=== PATIENT | female | born 1960 | race Caucasian/White ===

== ENCOUNTER 2016-07-03 17:34 | Emergency (ER) | payer OTHER, MEDICARE ==
[~2016-07-03] VITALS: Ht 175.3 cm; Wt 81.6 kg
[~2016-07-03 17:34] MED LIST: AMOXICILLIN500 M1 PO; AUGMENTIN 875 M1 TAB PO; BACTRIM DS 8001 TAB PO; BENADRYL ALLERG25 M1 PO; BENADRYL ALLERG25 MG PO; CIPRO 500MG TA500 MG PO; CIPRO500 M1 PO; CIPROFLOXACIN250 M2 PO; CYANOCOBAL1000 MCG/1 IM; CYANOCOBAL1000 MCG/M SC; DILAUDID2 MG PO; DOCUSATE SODIU100 MG PO; ERGOCALCIFER50000 IU PO; FLAGYL500 MG PO; FLEXERIL10 MG PO; FLONASE120 SPRAY/ NASB; FLUOXETINE HYDR20 M1 PO; GABAPENTIN300 MG PO; HYDROXYZINE HCL10 MG PO; LEVETIRACETAM250 MG PO; LEVOCETIRIZINE D5 MG PO; LEVSIN/SL0.125 MG SL; LIDODERM 5% PAT1 PAT EXT; LIORESAL 10MG T10 MG PO; MACROBID100 MG PO; MEDROL DOSEPAK1 PAC PO; MEDROL4 M2 PO; MIRALAX17 GM PO; MOBIC15 M1 PO; MOBIC15 MG PO; MOTRIN 600 MG600 MG PO; MSIR PO; NAPROSYN 500 M500 MG PO; NASONEX0.05 MG/Ac NAS; NEURONTIN300 MG PO; OMEPRAZOLE40 MG PO; OXYCODONE5 M1 PO; OXYCODONE5 MG PO; PANTOPRAZOLE SO40 MG PO; PERCOCET 325 MG1 TA2 PO; PERCOCET 5-3251 EACH PO; PHENAZOPYRIDIN200 MG PO; PREDNISONE10 MG PO; PROTONIX 40MG T40 MG PO; PYRIDIUM100 MG PO; PYRIDIUM200 MG PO; RIBASPHERE RIB PO; SENOKOT S 50 MG1 TAB PO; SENOKOT8.6 MG PO; SKELAXIN800 M1 PO; Senokot S PO; TRAMADOL50 MG PO; ULTRAM(MONOGRAP50 MG PO; ULTRAM50 M1 PO; VICODIN 5-3001 EACH PO; VISTARIL25 MG PO; VITAMIN B121000 MCG PO; VITAMIN D50000 IU PO; ZOFRAN ODT4 M1 SL; ZOFRAN4 M1 PO; [UNRECOGNIZED DRUG - OTHER] PO; [UNRECOGNIZED DRUG - OTHER] PO
[2016-07-03 18:14] LABS: ABSOLUTE BASOPHIL COUNT 0 /CUMM (0.0-0.2); ABSOLUTE EOSINOPHIL COUNT 0.1 /CUMM (0.0-0.7); ABSOLUTE GRANULOCYTE CT 1.5 /CUMM (1.4-6.5); ABSOLUTE LYMPH COUNT 0.4 /CUMM (1.2-3.4); ABSOLUTE MONOCYTE COUNT 0.1 /CUMM (0.10-0.60); BASOPHIL % 0.6 % (0.0-2.0); EOSINOPHIL % 4.1 % (0-5); GRANULOCYTE % 69.1 % (42.2-75.2); HEMATOCRIT 31.1 % (37-47); MEAN CORPUSCULAR HGB 28.1 PG (27.0-31.0); MEAN CORPUSCULAR HGB CONC 33.3 G/DL (33.0-37.0); MEAN CORPUSCULAR VOLUME 84.5 FL (81.0-99.0); MEAN PLATELET VOLUME 8.4 FL (7.4-10.4); PLATELET COUNT 61 /CUMM (130-400); RBC DISTRIBUTION WIDTH 18.4 % (11.5-14.5); RED BLOOD CELL CT 3.68 /CUMM (4.20-5.40); WHITE BLOOD CELL COUNT 2.1 /CUMM (4.8-10.8)
[2016-07-03] MEDS ORDERED: HYDROXYZINE HCL10 M1 PO (19:34)
[2016-07-03] MEDS ORDERED: DEXILANT60 M1 PO (19:34)
--- NOTE | 2016-07-03 19:43 | ED GI/GU/ABDOMINAL COMPLAINT ---
See Addendum History of Present Illness General Chief Complaint: General Adult Stated Complaint: SIB DR LÓPEZ FOR URINALYSIS PER PT Source: patient Exam Limitations: no limitations Vital Signs & Intake/Output Vital Signs & Intake/Output Vital Signs Date Time Temp Pulse Resp B/P Pulse O2 O2 Flow FiO2 Ox Delivery Rate 07/03 2020 96.0 79 18 128/68 100 Room Air 07/03 1750 96.3 84 18 127/77 100 Room Air Allergies Coded Allergies: pollen extracts (Mild, STUFFY NOSE 12/19/15) NO KNOWN ALLERGIES (10/11/15) Reconcile Medications Dexlansoprazole (Dexilant) 60 MG LAQUITA.BP 1 CAP PO DAILY PRN GI (Reported) Hydroxyzine HCl 10 MG TABLET 1 TAB PO TID ITCHING (Reported) Triage Note: PT TO ED FOR R SIDED FLANK PAIN RADIATING TO RLQ OF ABD AND BILATERAL LEG SWELLING "FOR A FEW MONTHS". PT ALSO C/O INTERMITTENT SUBJECTIVE FEVER "FOR A FEW MONTHS". Triage Nurses Notes Reviewed? yes ? N Is pt currently ? No HPI: PT PRESENTS FOR EVAL OF BILATERAL FLANK. ONSET ONE WEEK AGO, GRADUAL ONSET. ALSO C/O HESITANCY, FREQUENCY AND DARK URINE. DENIES PAIN/DYSURIA. NO FEVER, CHILLS OR COLD SX. NO NAUSEA OR VOMITTING OR DIARRHEA. HX OF DISC DISEASE WITH SCIATICA. PAIN RADIATES TO BOTH THIGHS R>L. TRIED ADVIL WITHOUT RELIEF. WORSE WITH MOVEMENT AND PROLONGED SITTING. PT DENIES INCONTINENCE OR URINE RETENTION. Past History Travel History Traveled to [place] past 21 day No Medical History Any Pertinent Medical History? see below for history Neurological: NONE EENT: SINUS POLYPS Cardiovascular: NONE Respiratory: NONE Gastrointestinal: Crohn's disease, BOWEL OBSTRUCTION, GASTROPARESIS Hepatic: cirrhosis, hepatitis C (with positive cryoglobulins) Renal: TILTED KIDNEY, UTI Musculoskeletal: rheumatoid arthritis Psychiatric: anxiety, depression, PANIC ATTACKS Endocrine: NONE Blood Disorders: NONE Cancer(s): NONE HOSPITAL ACCOUNT LIAISON/Reproductive: NONE Other Medical Hx: Cryoglobulinemia History of MRSA: Yes History of VRE: No History of CDIFF: No Tetanus Vaccine: 02/03/15 Surgical History Surgical History: colon resection, tubal ligation, SINUS POLYPS CARPAL TUNNEL Psychosocial History Who do you live with Significant Other Services at Home None What is your primary language Jamaican Tobacco Use: Never used ETOH Use: denies use Illicit Drug Use: denies illicit drug use Family History Hx Contributory? No Review of Systems Review of Systems Constitutional: Reports: no symptoms. EENTM: Reports: no symptoms. Respiratory: Reports: no symptoms. Cardiovascular: Reports: no symptoms. GI: Reports: no symptoms. Genitourinary: Reports: see HPI. Musculoskeletal: Reports: see HPI. Skin: Reports: no symptoms. Neurological/Psychological: Reports: no symptoms. Hematologic/Endocrine: Reports: no symptoms. Immunologic/Allergic: Reports: no symptoms. All Other Systems: Reviewed and Negative Physical Exam Physical Exam Gastrointestinal: SEE BELOW Core Measures ACS in differential dx? No Severe Sepsis Present: No Septic Shock Present: No Progress Differential Diagnosis: CHRONIC BACK PAIN/SCIATICA/DISC DISEASE, UTI/PYELO Plan of Care: Orders Procedure Date/time Status CULTURE,URINE 07/03 1750 Active URINALYSIS 07/03 1750 Complete COMPREHENSIVE METABOLIC PANEL 07/03 1750 Complete CBC WITHOUT DIFFERENTIAL 07/03 1750 Complete Laboratory Tests 07/03/16 1804: Anion Gap 10, Estimated GFR > 60, BUN/Creatinine Ratio 18.6, Glucose 102 H, Calcium 8.8, Total Bilirubin 1.0, AST 25, ALT 33, Alkaline Phosphatase 78, Total Protein 7.3, Albumin 3.7, Globulin 3.6, Albumin/Globulin Ratio 1.0 L, CBC w Diff NO MAN DIFF REQ, RBC 3.68 L, MCV 84.5, MCH 28.1, RDW 18.4 H, MPV 8.4, Gran % 69.1, Lymphocytes % 21.0, Monocytes % 5.2, Eosinophils % 4.1, Basophils % 0.6, Absolute Granulocytes 1.5, Absolute Lymphocytes 0.4 L, Absolute Monocytes 0.1 L, Absolute Eosinophils 0.1, Absolute Basophils 0, PUBS MCHC 33.3 07/03/16 175: Urine Color YEL, Urine Clarity HAZY H, Urine pH 5.5, Ur Specific [place] >= 1.030, Urine Protein TRACE H, Urine Ketones NEG, Urine Nitrite NEG, Urine Bilirubin NEG, Urine Urobilinogen 1.0, Ur Leukocyte Esterase TRACE H, Ur Microscopic SEDIMENT EXAMINED, Urine RBC FEW H, Urine WBC 5-10 H, Ur Epithelial Cells MANY H, Hyaline Casts RARE H, Urine Mucus MOD H, Urine Hemoglobin NEG, Urine Glucose NEG Microbiology 07/03 1751 URINE ROUT: Urine Culture - RECD Diagnostic Imaging: Discussed w/RAD: Ultrasound. Radiology Impression: PATIENT: ESTELITA SOLORZANO PRESENT AGE: 56 PATIENT ACCOUNT NO: [id number] : 56 LOCATION: [facility] ORDERING PHYSICIAN: JOSE RAUL PIMENTEL MD SERVICE DATE: 07/03/16 EXAM TYPE: US - US-RENAL/KIDNEY EXAMINATION: US RETROPERITONEAL COMPLETE (RENAL) CLINICAL INFORMATION: Bilateral flank pain and dysuria. COMPARISON: CT of the abdomen and pelvis on 03/20/2016. TECHNIQUE: Real-time imaging of the kidneys and bladder. FINDINGS: RIGHT KIDNEY: 8.6 x 5.2 x 4.6 cm (SAG x AP x TRV). Renal volume 106 mL. The kidney is normal in size, contour, and echogenicity. Renal cortical thickness is normal. No calculi or focal parenchymal lesions. No hydronephrosis. LEFT KIDNEY: 9.9 x 3.9 x 5.2 cm (SAG x AP x TRV). Renal volume 107 mL. The kidney is normal in size, contour, and echogenicity. Renal cortical thickness is normal. No calculi or focal parenchymal lesions. No hydronephrosis. BLADDER: Partially distended. Unremarkable. Incidentally noted is splenomegaly. The spleen measures close to 20 cm in oblique diameter. IMPRESSION: No evidence of hydronephrosis or stone formation. Splenomegaly. DICTATED BY: GLENN DAWN MD DATE/TIME DICTATED:07/03/162107 GROUP SALES COORDINATOR:NATASHA DATE/ TIME TRANSCRIBED:07/03/162107 CONFIDENTIAL, DO NOT COPY WITHOUT APPROPRIATE AUTHORIZATION. <Electronically signed in Other Vendor System> SIGNED BY: GLENN DAWN MD 07/03/162115 Initial ED EKG: none Comments: 07/03/2016 9:46:44 PM I have updated Estelita on her test results. She appears quite comfortable. She has splenomegaly documented on prior CAT scans and her pancytopenia has been stable for years. 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 The spleen appears to be stable in size. Given lack of fever and significant neutropenia, I feel the patient is stable for outpatient management with PO antibiotics and follow-up within 48 hours. Departure Departure Disposition: HOME OR SELF CARE Condition: Stable Clinical Impression Primary Impression: UTI (urinary tract infection) Qualifiers: Urinary tract infection type: acute cystitis Hematuria presence: with hematuria Qualified Code: N30.01 - Acute cystitis with hematuria Secondary Impressions: Back pain Qualifiers: Back pain location: low back pain Chronicity: chronic Back pain laterality: bilateral Sciatica presence: unspecified whether sciatica present Qualified Codes: M54.5 - Low back pain; G89.29 - Other chronic pain Pancytopenia Splenomegaly Referrals: AUDREY LAWTON MD (PCP/Family) Additional Instructions: Ciprofloxacin as prescribed for a possible urinary tract infection. Pyridium as needed for bladder spasms, hesitancy or frequency. Follow-up with your primary care doctor in 48 hours for reevaluation. Follow-up with your financial assistance specialist if your back pain persists (I do not feel your back pain is related to the urinary tract signs and symptoms). Return immediately if you spike a fever or if there are any other concerns or worsening. Please note that there might be incidental findings in your evaluation that are unrelated to the current emergency department visit. Please notify your primary care doctor about this emergency department visit in order to obtain and review all of the testing performed so that these incidental findings can be monitored as needed. If you had an x-ray performed, please understand that some fractures may not be seen on the initial set of x-rays. If your symptoms persist you might need a repeat set of x-rays to check for such a fracture. If you had a laceration evaluated, please understand that foreign bodies such as glass or wood may not be visible to the naked eye or on plain x-rays. If the wound becomes red, swollen, increasingly more painful or if there is any drainage from the wound, please have it reevaluated by a physician for the possibility of a retained foreign body. Thank you for choosing the [facility] Emergency Department for your care. It was a pleasure to serve you today. Jose Raul Pimentel M.D. [facility] Departure Forms: Customer Survey General Discharge Information Prescriptions: Current Visit Scripts Ciprofloxacin HCl (Cipro) 1 TAB PO BID #14 TAB Phenazopyridine HCl (Pyridium) 1 TAB PO TID PRN BLADDER SPASMS #9 TAB
--- NOTE | 2016-07-03 21:16 | ULTRASOUND REPORT ---
EXAMINATION: US RETROPERITONEAL COMPLETE (RENAL) CLINICAL INFORMATION: Bilateral flank pain and dysuria. COMPARISON: CT of the abdomen and pelvis on 03/20/2016. TECHNIQUE: Real-time imaging of the kidneys and bladder. FINDINGS: RIGHT KIDNEY: 8.6 x 5.2 x 4.6 cm (SAG x AP x TRV). Renal volume 106 mL. The kidney is normal in size, contour, and echogenicity. Renal cortical thickness is normal. No calculi or focal parenchymal lesions. No hydronephrosis. LEFT KIDNEY: 9.9 x 3.9 x 5.2 cm (SAG x AP x TRV). Renal volume 107 mL. The kidney is normal in size, contour, and echogenicity. Renal cortical thickness is normal. No calculi or focal parenchymal lesions. No hydronephrosis. BLADDER: Partially distended. Unremarkable. Incidentally noted is splenomegaly. The spleen measures close to 20 cm in oblique diameter. IMPRESSION: No evidence of hydronephrosis or stone formation. Splenomegaly.
[2016-07-03] MEDS ORDERED: CIPRO500 M1 PO (21:48)
[2016-07-03] MEDS ORDERED: PYRIDIUM200 M1 PO (21:48)
[2016-07-03 22:09] VITALS: BP 113/60
[2016-07-03] MEDS ORDERED: DICLOFENAC SODI75 M2 PO (22:23)
== END 2016-07-03 22:25 ==
LOC: ERH 17:34
PROVIDERS: Emergency Medicine
DX: N39.0 Urinary tract infection, site not specified (principal); M54.5 Low back pain; D61.818 Other pancytopenia; R16.1 Splenomegaly, not elsewhere classified
CPT/HCPCS: 76775; 81001; 87086; 96372

== ENCOUNTER 2016-10-02 18:03 | Emergency (ER) | payer OTHER, MEDICARE ==
[~2016-10-02] VITALS: Ht 175.3 cm; Wt 83.5 kg
[~2016-10-02 18:03] MED LIST changes: +DEXILANT60 M1 PO; +DICLOFENAC SODI75 M2 PO; +HYDROXYZINE HCL10 M1 PO; +PYRIDIUM200 M1 PO
--- NOTE | 2016-10-02 18:53 | RADIOLOGY REPORT ---
EXAMINATION: XR RIBS, LEFT CLINICAL INFORMATION: Fall. Pain. COMPARISON: None TECHNIQUE: Single view chest. 3 oblique views of left ribs. FINDINGS: Lung volume low. There is no acute infiltrate. No consolidation, pneumothorax, or pleural effusion. The cardiomediastinal silhouette and pulmonary vasculature are normal. There is no displaced fracture. There is subtle contour deformity of the anterior left 10th rib concerning for nondisplaced fracture. There is also a subtle contour deformity of the anterior lateral left fifth rib concerning for nondisplaced fracture. IMPRESSION: 1. No acute change of chest. 2. Subtle contour deformity of the anterior left 10th rib and anterior fifth rib concerning for nondisplaced fracture. Clinically correlate.
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
[2016-10-02] MEDS ORDERED: PERCOCET 5-3251 EACH PO (19:42)
[2016-10-02] MEDS ORDERED: CORTIZONE-10 PL28 GM TOP (19:42)
[2016-10-02 20:00] VITALS: BP 130/78
== END 2016-10-02 20:05 ==
LOC: ERH 18:03
DX: S22.42XA Multiple fractures of ribs, left side, initial encounter for closed fracture (principal); L25.9 Unspecified contact dermatitis, unspecified cause; W19.XXXA Unspecified fall, initial encounter; Y93.9 Activity, unspecified; Y92.9 Unspecified place or not applicable
CPT/HCPCS: 71100-LT

== ENCOUNTER 2017-10-24 15:32 | Emergency (ER) | payer OTHER, MEDICARE ==
[~2017-10-24] VITALS: Ht 175.3 cm; Wt 81.6 kg
[~2017-10-24 15:32] MED LIST changes: +CORTIZONE-10 PL28 GM TOP; +FLUTICASONE PRO16 GM NASB; +PERCOCET 10-321 EACH PO; +PERCOCET 7.5-31 EACH PO; +RANITIDINE HCL300 M1 PO; +ZYRTEC10 M3 PO
--- NOTE | 2017-10-24 16:15 | ED UPPER/LOWER EXTREMITY COMPL ---
History of Present Illness General Chief Complaint: Shoulder Injury Stated Complaint: RIGHT SHOULDER PAIN Source: patient Exam Limitations: no limitations Vital Signs & Intake/Output Vital Signs & Intake/Output Vital Signs Date Time Temp Pulse Resp B/P B/P Pulse O2 O2 Flow FiO2 Mean Ox Delivery Rate 10/24 1627 99.9 98 17 138/71 98 Room Air 10/24 1626 Room Air 10/24 1537 99.8 96 18 134/69 97 Room Air Allergies Coded Allergies: pollen extracts (Mild, STUFFY NOSE 11/25/16) Reconcile Medications Cetirizine HCl (Zyrtec) 10 MG TABLET 1 TAB PO DAILY ALLERGIES (Reported) Dexlansoprazole (Dexilant) 60 MG CAP.DR.BP 1 CAP PO DAILY PRN GI (Reported) Fluticasone Propionate 50 MCG/ACTUATION SPRAY.SUSP 2 SPRAY NASB DAILY ALLERGIES (Reported) Hydroxyzine HCl 10 MG TABLET 1 TAB PO TID ITCHING (Reported) Oxycodone HCl/Acetaminophen (Percocet 7.5-325 MG Tablet) 7.5 MG-325 MG TABLET 1 TAB PO TID PRN PAIN Oxycodone HCl/Acetaminophen (Percocet 5-325 MG Tablet) 5 MG-325 MG TABLET 1 TAB PO 4 TIMES/DAY PRN PAIN Oxycodone HCl/Acetaminophen (Percocet 10-325 MG Tablet) 10 MG-325 MG TABLET 1 TAB PO 4 TIMES/DAY PRN PAIN Oxycodone HCl/Acetaminophen (Percocet 5-325 MG Tablet) 5 MG-325 MG TABLET 1-2 TAB PO BID pain Ranitidine HCl 300 MG TABLET 1 TAB PO BID GI (Reported) Triage Note: PT FROM HOME C/O RIGHT SHOULDER ROTATOR CUFF TEAR ABOUT 3 YEARS PRIOR, YESTERDAY PT WAS GARDENING AND BELIEVED SHE TORE IT EVEN MORE. PT STATES SINCE 0000 HAS HAD PAIN 10/10 IN RIGHT SHOULDER. PT DENIES SELF MEDICATING. PT DECLINES SLING IN TRIAGE, ACCEPTED ICE PACK. VSS. LOW GRADE TEMP 99.8 Triage Nurses Notes Reviewed? yes Onset: Abrupt Duration: day(s): (1), constant Timing: recent history Severity: moderate, severe Pain/Injury Location: Right: Shoulder. Method of Injury: unknown No Modifying Factors: none HPI: 57-year-old female comes into the emergency room with complaints of right shoulder pain. Symptoms been going on for the past day. She has a prior history of rotator cuff injury. She reports that she was doing some gardening yesterday when she felt pain in her shoulder. She has had pain since then and difficulty lifting her arm. She comes in for further evaluation. She denies any chest pain shortness of breath cough and nausea vomiting. Denies any other associated symptoms. (Nestor Pavon) Past History Travel History Traveled to [place] past 21 day No Medical History Any Pertinent Medical History? 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 No (Nestor Pavon) Review of Systems Review of Systems Constitutional: Reports: no symptoms. EENTM: Reports: no symptoms. Respiratory: Reports: no symptoms. Cardiovascular: Reports: no symptoms. Gastrointestinal/Abdominal: Reports: no symptoms. Genitourinary: Reports: no symptoms. Musculoskeletal: Reports: see HPI. Skin: Reports: no symptoms. Neurological/Psychological: Reports: no symptoms. Hematologic/Endocrine: Reports: no symptoms. Immunological: Reports: no symptoms. All Other Systems: Reviewed and Negative (Nestor Pavon) Physical Exam Physical Exam General Appearance: well developed/nourished, mild distress Head: atraumatic Eyes: Bilateral: normal appearance. Ears, Nose, Throat: normal ENT inspection, hearing grossly normal Neck: normal inspection Cardiovascular/Respiratory: no respiratory distress Back: normal inspection Shoulder Right: soft tissue tenderness, limited range of motion, Pain over right acromioclavicular joint, pain over right deltoid and trapezius muscle, pain with any type of abduction, Neurologic/Tendon: normal sensation, normal motor functions, normal tendon functions, responds to pain, no evidence tendon injury, no pulse deficit Skin: intact, normal color, warm/dry (Nestor Pavon) Progress Differential Diagnosis: contusion, dislocation, fracture, septic arthritis, sprain, tendon injury, rotator cuff tendinitis, and not as muscle strain, cervical radiculopathy, Plan of Care: 10/24/2017 7:00:22 PM Patient clinically looks well. Patient is in no apparent distress. Patient is nontoxic-appearing. No chest pain or shortness of breath. Pain is consistent with musculoskeletal pain. Reproducible. Worse with range of motion. (Nestor Pavon) Departure Departure Disposition: HOME OR SELF CARE Condition: Stable Clinical Impression Primary Impression: Right shoulder strain Referrals: Sobia Holguin APRN (PCP/Family) Additional Instructions: Take Percocet for pain. Follow-up with primary care doctor. Return if any other concerns worsening symptoms. Please go over all results of today's visit with your primary care doctor. Contact your primary care doctor to let them know you were here in the emergency room. There may be nonspecific findings which may not be related to your visit today here in the emergency room but may require further evaluation and chronic monitoring by your primary care doctor. If you had a laceration today the chance of foreign body always remains. You should follow-up with your primary care doctor for recheck in 3-5 days for a wound check. If you had an x-ray done there is a chance that a fracture could have been missed on initial read and you should follow-up with your primary care doctor for repeat x-rays if symptoms persist. If your blood pressure was elevated here in the emergency room please have rechecked by [facility] primary care doctor within the next 48. If you were prescribed a narcotic here in the emergency room or any type of controlled substances you're not allowed to drive while taking this medication or operate any type of heavy machinery. Narcotics can make you feel lightheaded dizziness nausea and can cause constipation. You may need to poultry picking machine tender a stool softener. Thank you for choosing [facility] emergency room. Please return to the emergency room immediately if you have any other concerns worsening of symptoms. Departure Forms: Customer Survey General Discharge Information Prescriptions: Current Visit Scripts Oxycodone HCl/Acetaminophen (Percocet 5-325 MG Tablet) 1-2 TAB PO BID #10 TAB (Nestor Pavon) PA/TOOL AND DIE ENGINEER Co-Sign Statement Statement: ED Attending supervision documentation- [] I saw and evaluated the patient. I have also reviewed all the pertinent lab results and diagnostic results. I agree with the findings and the plan of care as documented in the PA's/TOOL AND DIE ENGINEER's documentation. [X] I have reviewed the ED Record and agree with the PA's/TOOL AND DIE ENGINEER's documentation. [] Additions or exceptions (if any) to the PAs/TOOL AND DIE ENGINEER's note and plan are summarized below: [] (Zuly HERCULES,Sarkis Feliciano)
[2017-10-24] MEDS ORDERED: PERCOCET 5-3251 EACH PO (16:17)
[2017-10-24 16:27] VITALS: BP 138/71
== END 2017-10-24 16:29 ==
LOC: ERH 15:32
DX: S46.911A Strain of unspecified muscle, fascia and tendon at shoulder and upper arm level, right arm, initial encounter (principal); X50.9XXA Other and unspecified overexertion or strenuous movements or postures, initial encounter; Y93.H2 Activity, gardening and landscaping
CPT/HCPCS: 96372; J1885

== ENCOUNTER 2017-11-05 14:58 | Inpatient (IN) | payer OTHER, MEDICARE ==
[~2017-11-05] VITALS: Ht 175.3 cm; Wt 89.5 kg
[2017-11-05 15:56] LABS: ABSOLUTE BASOPHIL COUNT 0 /CUMM (0.0-0.2); ABSOLUTE EOSINOPHIL COUNT 0.1 /CUMM (0.0-0.7); ABSOLUTE GRANULOCYTE CT 2.4 /CUMM (1.4-6.5); ABSOLUTE LYMPH COUNT 0.4 /CUMM (1.2-3.4); ABSOLUTE MONOCYTE COUNT 0.2 /CUMM (0.10-0.60); BASOPHIL % 0.6 % (0.0-2.0); EOSINOPHIL % 2.1 % (0-5); GRANULOCYTE % 78.5 % (42.2-75.2); HEMATOCRIT 29.6 % (37-47); MEAN CORPUSCULAR HGB 27.4 PG (27.0-31.0); MEAN CORPUSCULAR HGB CONC 32.8 G/DL (33.0-37.0); MEAN CORPUSCULAR VOLUME 83.6 FL (81.0-99.0); MEAN PLATELET VOLUME 7.5 FL (7.4-10.4); RBC DISTRIBUTION WIDTH 17.1 % (11.5-14.5); RED BLOOD CELL CT 3.54 /CUMM (4.20-5.40); WHITE BLOOD CELL COUNT 3.1 /CUMM (4.8-10.8)
[2017-11-05 16:00] LABS: PLATELET COUNT 81 /CUMM (130-400)
--- NOTE | 2017-11-05 17:10 | CT SCAN REPORT ---
EXAMINATION: CT CHEST WITH CONTRAST CLINICAL INFORMATION: Palpable mass located at the right superior sternal border. COMPARISON: Chest CT from 10/11/2017. TECHNIQUE: Multidetector volumetric CT imaging of the chest was obtained after the administration of 95 mL of Optiray 320 intravenous contrast without immediate adverse reactions. Axial MIP volume rendering provided. Sagittal and coronal reformatted images were obtained. DLP: 256 mGy-cm FINDINGS: LUNGS: The central airways are patent. No dense consolidation. Unchanged appearance of the left lower lobe 0.4 cm nodule, series 3 image 32. No pneumothorax. MEDIASTINUM: The heart is normal in size. Coronary artery calcifications are present. No pericardial effusion. No mediastinal lymphadenopathy. PLEURA: There is no pleural effusion. No pleural mass or thickening. AXILLA/CHEST WALL: No lymphadenopathy. There is mild asymmetric prominence of the right pectoralis musculature/soft tissues along the anterior margin of the right sternoclavicular joint. This is a new finding when compared to the prior CT from 10/11/2017. There is no mass in the immediate subcutaneous tissues. UPPER ABDOMEN: Splenomegaly. OSSEOUS STRUCTURES: There is subtle irregularity of the medial head of the right clavicle as well as the manubrium in the region of the increased soft tissue density. This is a change from the prior study and suggestive of early erosion. IMPRESSION: There is a new finding of increased soft tissue density anterior to the right sternoclavicular joint with subtle erosive appearance of the head of the right clavicle as well as the adjacent manubrium. These findings raise concern for septic arthritis with osteomyelitis. Soft tissue density could represent an early inflammatory changes in this region. MRI may be useful to better evaluate.
--- NOTE | 2017-11-05 17:21 | ED CARDIAC/CP/PALPITATIONS ---
History of Present Illness General Chief Complaint: General Adult Stated Complaint: SIB PT FOR LUMP ON CHEST WITH PAIN TO R SHOULDER Source: patient Exam Limitations: no limitations Vital Signs & Intake/Output Vital Signs & Intake/Output Vital Signs Date Time Temp Pulse Resp B/P B/P Pulse O2 O2 Flow FiO2 Mean Ox Delivery Rate 11/05 1515 98.5 11/05 1514 90 18 129/80 98 Room Air Allergies Coded Allergies: pollen extracts (Mild, STUFFY NOSE 11/25/16) Reconcile Medications Cetirizine HCl (Zyrtec) 10 MG TABLET 1 TAB PO DAILY ALLERGIES (Reported) Dexlansoprazole (Dexilant) 60 MG CAP.DRQingBP 1 CAP PO DAILY PRN GI (Reported) Fluticasone Propionate 50 MCG/ACTUATION SPRAY.SUSP 2 SPRAY NASB DAILY ALLERGIES (Reported) Hydroxyzine HCl 10 MG TABLET 1 TAB PO TID ITCHING (Reported) Oxycodone HCl/Acetaminophen (Percocet 7.5-325 MG Tablet) 7.5 MG-325 MG TABLET 1 TAB PO TID PRN PAIN Oxycodone HCl/Acetaminophen (Percocet 5-325 MG Tablet) 5 MG-325 MG TABLET 1 TAB PO 4 TIMES/DAY PRN PAIN Oxycodone HCl/Acetaminophen (Percocet 10-325 MG Tablet) 10 MG-325 MG TABLET 1 TAB PO 4 TIMES/DAY PRN PAIN Oxycodone HCl/Acetaminophen (Percocet 5-325 MG Tablet) 5 MG-325 MG TABLET 1-2 TAB PO BID pain Ranitidine HCl 300 MG TABLET 1 TAB PO BID GI (Reported) Triage Note: 57 YO FEMALE TO TRIAGE FOR EVAL OF ?LUMP ON UPPER CHEST. STATES LUMP IS PAINFUL. STATES SHE HAS BEEN GOING TO PHYSICAL THERAPY TO STRENGTHEN HERSELF UP BEUCASE SHE FALLS ALOT. PT IN TRIAGE FOR EVAL. Triage Nurses Notes Reviewed? yes Onset: Gradual Duration: constant Timing: recent history Quality/Severity: severe, stabbing Radiation: no radiation HPI: Patient is a 57-year-old female with a past medical history hepatitis C, Crohn's disease with no current active medications, and GERD who presents emergency room with a three-day history of right-sided sternoclavicular swelling and point tenderness is noted through old records the patient approximately 2 weeks ago was seen at [place] emergency room for concerns of a fall where she obtained x- rays of the right shoulder with no concerns or fracture however followed up 1 week ago to evaluate orthopedics patient received an injection of corticosteroid to the right shoulder Patient denies any fever chills, nausea vomiting difficulty breathing difficulty swallowing or new trauma States that palpation and deep inhalation makes worse denies any IV drug use or alcohol use (Bro Castillo) Past History Travel History Traveled to [place] past 21 day No Medical History Any Pertinent Medical History? 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 No (Bro Castillo) Review of Systems Review of Systems Constitutional: Reports: no symptoms. EENTM: Reports: no symptoms. Respiratory: Reports: see HPI. Cardiovascular: Reports: see HPI. GI: Reports: no symptoms. Genitourinary: Reports: no symptoms. Musculoskeletal: Reports: no symptoms. Skin: Reports: no symptoms. Neurological/Psychological: Reports: no symptoms. Hematologic/Endocrine: Reports: no symptoms. Immunologic/Allergic: Reports: no symptoms. All Other Systems: Reviewed and Negative (Bro Castillo) Physical Exam Physical Exam General Appearance: no apparent distress, alert, comfortable Head: atraumatic Eyes: Bilateral: normal appearance. Ears, Nose, Throat: hearing grossly normal Neck: normal inspection Respiratory: normal breath sounds, chest non-tender Cardiovascular: regular rate/rhythm Gastrointestinal: normal bowel sounds, soft, non-tender Neurologic/Psych: no motor/sensory deficits, awake Skin: intact Lymphatic: no anterior cervical kareem Diagram Chest, Abdomen, Back: 1) Noted sternal clavicular swelling and point tenderness Core Measures ACS in differential dx? No CVA/TIA Diagnosis No Sepsis Present: No Sepsis Focused Exam Completed? No (Leandro FELICIANO,Bro) Progress Differential Diagnosis: AMI, costochondritis, pericarditis, pneumonia, pneumothorax, pulmonary embolism, rib fracture, sepsis, unstable angina Plan of Care: Orders Procedure Date/time Status Heart Healthy Diet 11/06 B Active Misc Message 11/05 1905 Active ED Holding Orders 11/05 1905 Active Admit to inpatient 11/05 1905 Active Vital Signs 11/05 1905 Active Code Status 11/05 190 Active EKG 11/05 1759 Active Add-on Test (ER Only) 11/05 1720 Active Add-on Test (ER Only) 11/05 171 Active BLOOD CULTURE 11/05 171 Active WESTERGREN SED RATE 11/05 1714 Complete LACTIC ACID 11/05 1545 Complete C-REACTIVE PROTEIN 11/05 1545 Complete COMPREHENSIVE METABOLIC PANEL 11/05 1518 Complete CBC WITHOUT DIFFERENTIAL 11/05 1518 Complete Laboratory Tests 11/05/17 1829: ESR Westergren 60 H 11/05/17 1545: Anion Gap 9, Estimated GFR > 60, BUN/Creatinine Ratio 21.7, Glucose 101 H, Lactic Acid 1.4, Calcium 8.8, Total Bilirubin 1.2, AST 23, ALT 23, Alkaline Phosphatase 76, C-Reactive Prot, Quant 2.0 H, Total Protein 7.4, Albumin 3.2 L , Globulin 4.2, Albumin/Globulin Ratio 0.8 L, CBC w Diff NO MAN DIFF REQ, RBC 3.54 L, MCV 83.6, MCH 27.4, MCHC 32.8 L, RDW 17.1 H, MPV 7.5, Gran % 78.5 H, Lymphocytes % 12.4 L, Monocytes % 6.4, Eosinophils % 2.1, Basophils % 0.6, Absolute Granulocytes 2.4, Absolute Lymphocytes 0.4 L, Absolute Monocytes 0.2, Absolute Eosinophils 0.1, Absolute Basophils 0 Microbiology 11/05 182 BLOOD: Blood Culture - RECD 11/05 1713 BLOOD: Blood Culture - ORD On initial examination patient has severe point tenderness and swelling to the right sternoclavicular joint and which CT scan does show concerns of septic arthritis versus osteomyelitis. Patient initially shows no concerns of sepsis or septic shock Discussed patient with ID who is aware of admission He agrees to withhold antibiotics at this time Patient will require interventional radiology culture to the SC joint and MRI discussed admission with patient who agrees Diagnostic Imaging: Viewed by Me: Radiology Read. Radiology Impression: acute abnormality Initial ED EKG: normal p-waves, normal QRS complex, 73 BPM,NSR Comments: PATIENT: JONA SOLORZANO PRESENT AGE: 57 PATIENT ACCOUNT NO: [id number] : 56 LOCATION: [facility] ORDERING PHYSICIAN: Jesse FELICIANO SERVICE DATE: 11/05/17 EXAM TYPE: CAT - CT CHEST W IV CONTRAST EXAMINATION: CT CHEST WITH CONTRAST CLINICAL INFORMATION: Palpable mass located at the right superior sternal border. COMPARISON: Chest CT from 10/11/2017. TECHNIQUE: Multidetector volumetric CT imaging of the chest was obtained after the administration of 95 mL of Optiray 320 intravenous contrast without immediate adverse reactions. Axial MIP volume rendering provided. Sagittal and coronal reformatted images were obtained. DLP: 256 mGy-cm FINDINGS: LUNGS: The central airways are patent. No dense consolidation. Unchanged appearance of the left lower lobe 0.4 cm nodule, series 3 image 32. No pneumothorax. MEDIASTINUM: The heart is normal in size. Coronary artery calcifications are present. No pericardial effusion. No mediastinal lymphadenopathy. PLEURA: There is no pleural effusion. No pleural mass or thickening. AXILLA/CHEST WALL: No lymphadenopathy. There is mild asymmetric prominence of the right pectoralis musculature/soft tissues along the anterior margin of the right sternoclavicular joint. This is a new finding when compared to the prior CT from 10/11/2017. There is no mass in the immediate subcutaneous tissues. UPPER ABDOMEN: Splenomegaly. OSSEOUS STRUCTURES: There is subtle irregularity of the medial head of the right clavicle as well as the manubrium in the region of the increased soft tissue density. This is a change from the prior study and suggestive of early erosion. IMPRESSION: There is a new finding of increased soft tissue density anterior to the right sternoclavicular joint with subtle erosive appearance of the head of the right clavicle as well as the adjacent manubrium. These findings raise concern for septic arthritis with osteomyelitis. Soft tissue density could represent an early inflammatory changes in this region. MRI may be useful to better evaluate. DICTATED BY: Lucila HERCULES,Nithin DATE/TIME DICTATED:11/05/171658 DISPATCHER ELECTRIC POWER:NATASHA DATE/TIME TRANSCRIBED:11/05/17 / 1658 CONFIDENTIAL, DO NOT COPY WITHOUT APPROPRIATE AUTHORIZATION. <Electronically signed in Other Vendor System> SIGNED BY: Nithin Gaytan MD 11/05 1710 (Bro Castillo) Departure Departure Disposition: STILL A PATIENT Condition: Stable Clinical Impression Primary Impression: Septic arthritis of sternoclavicular joint Secondary Impressions: Osteomyelitis Referrals: Sobia Holguin APRN (PCP/Family) Departure Forms: Customer Survey General Discharge Information Admission Note Spoke With: Timur Armstrong MD Documentation of Exam: Documentation of any treatments & extenuating circumstances including Concerns Regarding Discharge (functional status, medication knowledge or non-compliance, living conditions, etc.) that warrant an admission rather than observation: [ Patient requires IV antibiotics MRI interventional radiology blood cultures pending repeat labs pain management for concerns of osteomyelitis versus septic arthritis of the SC joint] (Bro Castillo) PA/RESIDENTIAL SUBCONTRACTOR Co-Sign Statement Statement: ED Attending supervision documentation- [X] I saw and evaluated the patient. I have also reviewed all the pertinent lab results and diagnostic results. I agree with the findings and the plan of care as documented in the PA's/RESIDENTIAL SUBCONTRACTOR's documentation. Patient presents for worsening pain and swelling over the right chest and clavicle. Physical examination reveals tenderness and soft tissue swelling in the same area. [] I have reviewed the ED Record and agree with the PA's/RESIDENTIAL SUBCONTRACTOR's documentation. [] Additions or exceptions (if any) to the PAs/RESIDENTIAL SUBCONTRACTOR's note and plan are summarized below: [] (Loren HERCULES,Jose Raul Davis) Critical Care Note Critical Care Note Critical Care Time: 30-74 min (Bro Castillo)
--- NOTE | 2017-11-05 20:41 | History & Physical ---
Emelina Land MD 11/05/172039: General Information and HPI MD Statement: I have seen and personally examined JONA SOLORZANO and documented this H&P. The patient is a 57 year old F who presented with a patient stated chief complaint of right chest swelling and pain Source of Information: patient, old records Exam Limitations: no limitations History of Present Illness: This is a 57-year-old female with a past medical history significant for hepatitis C treated with her bony, cirrhosis, Crohn's disease status post large and small bowel resections, GERD, rheumatoid arthritis, anxiety, depression, carpal tunnel syndrome status post bilateral surgery that comes to see us for 3 day history of right chest swelling and pain. The patient states that her problems started 2 weeks ago on 10/11 when she was seen at the [facility] emergency department after a fall in the shower. The patient states that she slipped in the shower, fell backwards and pulled her right shoulder. Subsequent x-ray showed no evidence of fracture but bone spurs and arthritis. The patient soon after followed up with an orthopedist who referred her to physical therapy and gave her one corticosteroid shot in the posterior shoulder. The patient states that she was also going to physical therapy as she has a history of recurrent falls. Today, she was supposed to start her physical therapy but when they saw the lump on her chest they sent her here for evaluation. The patient states that the swelling was smaller than a golf ball on her right chest above her breast. However, at the time of interview this swelling had decreased and instead a swelling was located near the collarbone. The patient states that her pain travels over her shoulder and is concentrated most in the collarbone but goes down her back to her rib cage. The patient also notes that she had been doing recent gardening and lifting heavy loads. She has pain in the area on palpation and with deep inspiration. She has pain on lifting arm and on turning her head, most notably towards the right hand side. The patient was last here in 2014 was found to have bursitis of her elbow, aspiration was done and did not show any evidence of MRSA. She has no history of joint infection. 3 days ago the patient showed the lump in her chest or her PCP, he apparently stated that she "most likely slept wrong" and gave her prescription for baclofen which she never filled. The patient has taken nothing for the pain. The patient denies fever, chills, left-sided chest pain, palpitations, dysphagia. She notes a certain degree of abdominal pain, nausea, vomiting that she attributes to her Crohn's and his chronic. She does state at this point her Crohn's is fairly well controlled. She denies any dysuria. The patient denies any travel. She last had a mammogram done 2 years ago, was negative. Also of note, the patient's friends have recently noted that her lips have become purple by the end of the day over the past few days. She denies any similar coloring of her fingers. Denies any edema, cough, shortness of breath on rest or exertion. He does have pain at in the right chest on inspiration. Of note patient had an echocardiogram done in 2014 which showed stage II diastolic dysfunction, no vegetations. She notes that she has a chronic history of falls. The patient states that she has episodes of dizziness randomly while walking that requires her to stop. She has not had any episodes of losing consciousness, mostly has had mechanical falls. The patient has a history of Crohn's disease and sees Justin Menezes MD. Apparently, he recently started her on Aldactone about a month ago for her cirrhosis. She notes that her Crohn's disease is well controlled. Patient is up-to-date on her colonoscopies. Allergies/Medications Allergies: Coded Allergies: pollen extracts (Mild, STUFFY NOSE 11/25/16) Home Med list Cetirizine HCl (Zyrtec) 10 MG TABLET 1 TAB PO DAILY ALLERGIES (Reported) Dexlansoprazole (Dexilant) 60 MG LAQUITA.BP 1 CAP PO DAILY PRN GI (Reported) Fluticasone Propionate 50 MCG/ACTUATION SPRAY.SUSP 2 SPRAY NASB DAILY ALLERGIES (Reported) Hydroxyzine HCl 10 MG TABLET 1 TAB PO TID ITCHING (Reported) Oxycodone HCl/Acetaminophen (Percocet 7.5-325 MG Tablet) 7.5 MG-325 MG TABLET 1 TAB PO TID PRN PAIN Oxycodone HCl/Acetaminophen (Percocet 5-325 MG Tablet) 5 MG-325 MG TABLET 1 TAB PO 4 TIMES/DAY PRN PAIN Oxycodone HCl/Acetaminophen (Percocet 10-325 MG Tablet) 10 MG-325 MG TABLET 1 TAB PO 4 TIMES/DAY PRN PAIN Oxycodone HCl/Acetaminophen (Percocet 5-325 MG Tablet) 5 MG-325 MG TABLET 1-2 TAB PO BID pain Ranitidine HCl 300 MG TABLET 1 TAB PO BID GI (Reported) Compliance With Home Meds: GOOD Past History Travel History Traveled to [place] past 21 day No Medical History Neurological: NONE EENT: SINUS POLYPS Cardiovascular: NONE Respiratory: NONE Gastrointestinal: Crohn's disease, BOWEL OBSTRUCTION GASTROPARESIS Hepatic: cirrhosis, HEPAC - CURED (with positive cryoglobulins) Renal: TILTED KIDNEY UTI Musculoskeletal: falls, rheumatoid arthritis, TORN R ROTATOR CUFF Psychiatric: anxiety, depression, PANIC ATTACKS Endocrine: NONE Blood Disorders: NONE Cancer(s): NONE 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 Psychosocial History Services at Home: None Smoking Status: Never Smoked ETOH Use: denies use Illicit Drug Use: denies illicit drug use Functional Ability ADLs Independent: dressing, eating, toileting, bathing. Ambulation: independent IADLs Independent: shopping, housework, finances, food prep, telephone, transportation , medication admin. Review of Systems Review of Systems Constitutional: Reports: no symptoms. EENTM: Reports: no symptoms. Cardiovascular: Reports: chest pain. Respiratory: Reports: no symptoms. GI: Reports: no symptoms. Genitourinary: Reports: no symptoms. Musculoskeletal: Reports: joint pain, muscle pain. Skin: Reports: no symptoms. Neurological/Psychological: Reports: no symptoms. Hematologic/Endocrine: Reports: no symptoms. Immunologic/Allergic: Reports: no symptoms. All Other Systems: Reviewed and Negative Exam & Diagnostic Data Last 24 Hrs of Vital Signs/I&O Vital Signs Date Time Temp Pulse Resp B/P B/P Pulse O2 O2 Flow FiO2 Mean Ox Delivery Rate 11/05 2258 98.2 84 18 120/80 93 Room Air 11/05 2203 98.8 82 18 135/64 97 Room Air Room Air 11/053 98.6 85 18 132/68 98 Room Air Room Air 11/05 1515 98.5 11/05 1514 90 18 129/80 98 Room Air Intake & Output 11/06 0800 11/06 0000 11/05 1600 Intake Total Output Total Balance Patient 193 lb 175 lb Weight Weight Reported by Patient Measurement Method Physical Exam General Appearance Alert, Oriented X3, Cooperative, No Acute Distress Skin No Rashes, No Breakdown, No Significant Lesion Skin Temp/Moisture Exam: Warm/Dry HEENT Atraumatic, PERRLA, EOMI, Mucous Membr. moist/pink Neck Supple, No JVD, PATIENT EXPERIENCES PAIN IN HER RIGHT CHEST AND NECK AND SHOULDER AND BACK WHEN SHE TURNED HER HEAD TO THE RIGHT SIDE OR TILTS HER NECK BACK Lymphatic NEGATIVE LYMPHADENOPATHY Cardiovascular Regular Rate, Normal S1, Normal S2, No Murmurs Lungs Clear to Auscultation, Normal Air Movement Abdomen Normal Bowel Sounds, Soft, No Tenderness, No Hepatospenomegaly, No Masses Neurological Normal Speech Extremities No Clubbing, No Cyanosis, No Edema, Normal Pulses, PATIENT HAS POSITIVE RADIAL PULSES, RETAINED SENSATION BUT PAIN ELICITED IN MOVEMENT ACTIVE AND PASSIVE OF THE RIGHT ARM AND SHOULDER. Vascular Normal Pulses, Pulses Symmetrical Sepsis Peripheral Pulse Location: Radial Sepsis Peripheral Pulse Exam: Normal Sepsis Cap Refill Exam: <2 Sec Last 24 Hrs of Labs/Kavin: Laboratory Tests 11/05/17 2340: PT 15.6 H, INR 1.43 H 11/05/17 1829: ESR Westergren 60 H 11/05/17 1545: Anion Gap 9, Estimated GFR > 60, BUN/Creatinine Ratio 21.7, Glucose 101 H, Lactic Acid 1.4, Calcium 8.8, Total Bilirubin 1.2, AST 23, ALT 23, Alkaline Phosphatase 76, C-Reactive Prot, Quant 2.0 H, Total Protein 7.4, Albumin 3.2 L , Globulin 4.2, Albumin/Globulin Ratio 0.8 L, CBC w Diff NO MAN DIFF REQ, RBC 3.54 L, MCV 83.6, MCH 27.4, MCHC 32.8 L, RDW 17.1 H, MPV 7.5, Gran % 78.5 H, Lymphocytes % 12.4 L, Monocytes % 6.4, Eosinophils % 2.1, Basophils % 0.6, Absolute Granulocytes 2.4, Absolute Lymphocytes 0.4 L, Absolute Monocytes 0.2, Absolute Eosinophils 0.1, Absolute Basophils 0 Microbiology 11/05 2129 BLOOD: Blood Culture - RECD 11/05 1829 BLOOD: Blood Culture - RECD Assessment/Plan Assessment: This is a 57-year-old female with a past medical history significant for hepatitis C treated with her bony, cirrhosis, Crohn's disease status post large and small bowel resections, GERD, rheumatoid arthritis, anxiety, depression, carpal tunnel syndrome status post bilateral surgery that comes to see us for 3 day history of right chest swelling and pain. The patient recently was seen at the [place] ER for a right shoulder injury, subsequently had a corticosteroid injection to the posterior shoulder. The patient has pain in the right chest over the shoulder and down to the back rib cage on movement and inspiration and as well as palpation of the area. The patient was seen previously in 2015 for elbow bursitis. She has no history of septic joint infections. The patient also has a recent history of reportedly blue/purple lips. All other systems negative. The patient last had an echocardiogram in 2014 which showed stage II diastolic dysfunction and no vegetations. In the ED, vitals temperature 98.5, heart rate 90, respiratory rate 18, blood pressure 129/80, 98% oxygen saturation on room air. Labs showed WBC count of 3.1 which is her baseline, hemoglobin of 9.7 down slightly from her baseline of hemoglobin 10-11, platelets 81 which is her baseline. ESR was found to be 60 and CRP elevated at 2.0. Liver function tests normal. Creatinine normal at 0.6. INR 1.43. CT of the chest showed new increased soft tissue density anterior to the right sternoclavicular joint with final erosive appearance of the head of the right clavicle and adjacent manubriumconcern for septic arthritis with osteomyelitis In the ED, the patient received morphine 4 mg 2 for pain Assessment -Right chest swelling and pain with evidence of septic arthritis/osteomyelitis on CT scan. If this is exactly case, question as to the point of infection i.e. contiguous versus vascularly. The patient does not have any evidence of skin break but did recently have a steroid injection in the posterior shoulder. -Low WBC count: She was found to have a low WBC count since 2014, lowest to 1.4 in September of this year. Apparently this was done as an outpatient. Please get records from PCP on evaluation of her hematologic deficiency. -History of Crohn's disease and cirrhosis recently placed on aldactone by Dr. Menezes contract associate manager Plan -Patient will need IR guided biopsy of lesion with culture and Gram stain, cell count. Consider MRI for further evaluation of potential osteomyelitis. Of note MRI is not available here on Sunday so we will go ahead with biopsy. -Hold antibiotics pending biopsy -Follow blood cultures 2 -Please place consult with infectious disease -Echocardiogram for question of vegetations if patient does in fact have hematologic spread -Patient will possibly need physical therapy down the line -Obtain records on WBC evaluation from PCP -Confirm dose of spironolactone the patient was recently started on by Dr. Menezes as it is not in reconcile meds -Pain pathway -Patient is on famotidine 40 twice a day by Dr. Justin Menezes, will continue. Regular diet DVT prophylaxis with Alps Patient is full code As Ranked By This Provider Problem List: 1. Osteomyelitis 2. Right shoulder strain 3. Septic arthritis of sternoclavicular joint Core Measures/Misc (01/28) Acute Coronary Syndrome ACS Diagnosis: No Congestive Heart Failure Congestive Heart Failure Diagnosis No Cerebrovascular Accident CVA/TIA Diagnosis: No VTE (View Protocol) VTE Risk Factors Age>40 No Mechanical VTE Prophylaxis d/t N/A MechProphylax Ordered No VTE Pharm Prophylaxis d/t NA PharmProphylax ordered Sepsis (View protocol) Sepsis Present: No If YES complete Sepsis Event Note If YES complete Sepsis Event Note Radha Domingo 11/06/17 0257: Core Measures/Misc (01/28) Sepsis (View protocol) If YES complete Sepsis Event Note If YES complete Sepsis Event Note Resident Review Statement Other Findings: Patient is a 57-year-old female with past medical history of Crohn's disease in remission, cirrhosis, history of bowel obstruction and gastroparesis, hep C treated, came in with a chief complaint of lump on her right upper chest. Patient states that she was feeling fine a week ago when she came to ER for pain in the right shoulder after she lifted up some weight and did some gardening work, given her history of rotator cuff tear she was advised to follow-up with an orthopedic as an outpatient, patient followed up the next day with an orthopedic which was on 10/30/2017, patient got a steroid shot on the posterior aspect of right shoulder in the office, and was sent home. Patient reported that a few days after that, she noticed lump in the anterior aspect of her right chest which was tender. Patient also noticed weakness in her right arm and was told by family and friends that her lips are turning blue at the end of the day. Patient however reports that she did not notice it herself. Labs and vitals as above CT chest with IV contrast There is a new finding of increased soft tissue density anterior to the right sternoclavicular joint with subtle erosive appearance of the head of the right clavicle as well as the adjacent manubrium. These findings raise concern for septic arthritis with osteomyelitis. Soft tissue density could represent an early inflammatory changes in this region. MRI may be useful to better evaluate. Assessment and plan We'll admit the patient on general medicine floor for closer monitoring Patient has been afebrile and no leukocytosis, however the CAT scan does show a questionable septic arthritis/osteomyelitis at in head of clavicle. Patient would probably need IR guided biopsy. Will keep off antibiotics until then, consider ID consult in a.m. Given the unknown source of septic arthritis of right sternoclavicular joint, will get echocardiogram to rule out for any infectious endocarditis. Of note patient had an echocardiogram done in 2014 which showed stage II diastolic dysfunction, no vegetations. Patient has elevated INR, she has a history of liver cirrhosis, will continue to monitor. Patient is on ranitidine 300 twice a day by Dr. Justin Menezes, will continue. Apparently patient is also on Spirinolactone, unkown dose, please confirm cmr in am. Pain management with Tylenol, Ibuprofen, morphine. DVT prophylaxis Alps. Patient is full code. Timur Armstrong 11/06/17 0510: Core Measures/Misc (01/28) Sepsis (View protocol) If YES complete Sepsis Event Note If YES complete Sepsis Event Note Attending MD Review Statement Attending Statement Attending MD Statement: examined this patient, discuss w/resident/PA/BRANCH MECHANIC, agreed w/resident/PA/BRANCH MECHANIC, reviewed EMR data (avail), reviewed images, amended to note Attending Assessment/Plan: CC: Lump on right side of the chest PMH: Hep C S/P treatment, resultant cirrhosis, Crohn's disease S/P surgery 20 inches of small bowel and 14 inches of large bowel removed, GERD, anxiety and depression 57-year-old female presented in ER for lump in right upper side of the chest near clavicle. Patient had a mechanical fall couple of weeks back, insured her chest and shoulder at that time and was seen in ER. She was suggested to follow- up with orthopedic at that time, where she received a right shoulder injection. Patient was following up with physical therapy for gait instability and recurrent falls where she informed about the lump on her chest and she was suggested to go to ER. She states that she noticed that swelling approximately 3 days back and has associated pain especially with arm movement and neck movement. She denies any fever, chills, night sweats, decreased appetite, chest pain, cough or palpitations otherwise complete ROS unremarkable. Patient states that she has rheumatoid arthritis but that is self diagnosed and patient does not appear to have rheumatoid arthritis. Patient is not on DMARD. She denies IV drug use Vitals: Temperature 98.5, pulse 90, RR 18, blood pressure 129/80, saturating 90% on room air. On exam: A O 3, cooperative, no acute distress, neck supple, JVD normal, no lymphadenopathy, mucosa moist, no focal neurological deficit, no dependent edema , small swelling and tenderness on right sternoclavicular joint, no fluctuation, or discharge. Right shoulder movements are painful CVS: S1-S2, RRR. RS: Clear to auscultate bilaterally. Abdomen: Soft, NT, ND, bowel sounds present. CT chest with IV contrast: There is a new finding of increased soft tissue density anterior to the right sternoclavicular joint with subtle erosive appearance of the head of the right clavicle as well as the adjacent manubrium. These findings raise concern for septic arthritis with osteomyelitis. Soft tissue density could represent an early inflammatory changes in this region. MRI may be useful to better evaluate. Assessment and plan 57-year-old female with above-mentioned past medical history presented in ER for 3 days history of swelling on her right upper side of her chest and associated pain. Patient does not have any significant leukocytosis or left shift and has chronic thrombocytopenia secondary to cirrhosis. On CT scan of her chest there is suspicion of septic arthritis and osteomyelitis of sternoclavicular joint. Patient will need IR guided biopsy. Will get infectious disease involved, hold off antibiotics. Unclear about source of this infection, patient may have had a bacteremia. Blood cultures and 2-D echocardiogram for any endocarditis + Suspected septic arthritis of sternoclavicular joint with associated osteomyelitis + History of Hep C S/P treatment, resultant cirrhosis, Crohn's disease S/P surgery 20 inches of small bowel and 14 inches of large bowel removed, GERD, anxiety and depression - Admit to general medicine - Blood cultures - ID consult - IR consult for biopsy - DVT prophylaxis with Alps only for now until the procedure - 2-D echocardiogram - No antibiotics at this point - Continue on her home medications
[2017-11-05 22:58] VITALS: BP 120/80
[2017-11-05 23:59] LABS: PT 15.6 SEC (9.4-12.5)
--- NOTE | 2017-11-06 05:11 | Admission Certification ---
Admission Certification Certification Statement - As attending physician, I certify that at the time of - admission, based on clinical presentation, severity of - symptoms, need for further diagnostic testing and - therapeutic interventions, and risk of adverse outcomes - without in-hospital treatment, in my clinical assessment, - this patient requires an acute hospital stay for a minimum - of two nights or longer. I have also considered psychsocial - factors such as support system, advanced age, financial - issues, cognitive issues, and failed out-patient treatments, - past re-admission history, safety of patient, and lack of - compliance as applicable. Specific rationale supporting this admission is: Suspected osteomyelitis of right sternoclavicular joint with septic arthritis
[2017-11-06 06:36] VITALS: BP 110/72
--- NOTE | 2017-11-06 07:15 | PN- Housestaff ---
Subjective Follow-up For: Osteomyelitis vs septic arthritis of right sternoclavicular joint Subjective: Patient seen and examined. States feeling sore but no pain. Has tenderness in her chest (external). Review of Systems Constitutional: Reports: no symptoms. Objective Last 24 Hrs of Vital Signs/I&O Vital Signs Date Time Temp Pulse Resp B/P B/P Pulse O2 O2 Flow FiO2 Mean Ox Delivery Rate 11/06 1416 98.5 79 18 116/66 95 Room Air 11/06 0636 98.0 74 18 110/72 95 Room Air 11/05 2258 98.2 84 18 120/80 93 Room Air 11/05 2203 98.8 82 18 135/64 97 Room Air Room Air 11/05 2053 98.6 85 18 132/68 98 Room Air Room Air Intake & Output 11/06 1600 11/06 0800 11/06 0000 Intake Total 290 Output Total 550 Balance -260 Intake, IV 50 Intake, Oral 240 Number 0 Bowel Movements Output, Urine 550 Patient 181 lb 193 lb Weight Physical Exam General Appearance: Alert, Oriented X3, Cooperative, Mild Distress Skin: No Rashes, No Breakdown Skin Temp/Moisture Exam: Warm/Dry Sepsis Skin Exam (color): Normal for Ethnicity HEENT: Atraumatic Cardiovascular: Normal S1, Normal S2, No Murmurs Lungs: Clear to Auscultation, Normal Air Movement Abdomen: Soft, No Tenderness Neurological: Normal Speech Extremities: No Edema Last 24 Hrs of Lab/Kavin Results Last 24 Hrs of Labs/Mics: Laboratory Tests 11/06/17 1050: Urine Opiates Screen 3545.00 H, Methadone Screen < 40, Barbiturate Screen < 60, Ur Phencyclidine Scrn < 6.00, Amphetamines Screen < 100, U Benzodiazepines Scrn < 85, Urine Cocaine Screen < 50, Urine Cannabis Screen < 5.00 11/06/17 1009: Fluid WBC Cancelled, Fld Total RBCs Counted Cancelled 11/06/17 1009: Fluid Glucose Cancelled, Fluid LDH Cancelled 11/06/17 0658: Anion Gap 6, Estimated GFR > 60, BUN/Creatinine Ratio 18.3, Uric Acid 5.0, CBC w Diff NO MAN DIFF REQ, RBC 2.97 L, MCV 83.7, MCH 27.5, MCHC 32.9 L, RDW 17.3 H , MPV 8.6, Gran % 73.3, Lymphocytes % 16.1 L, Monocytes % 7.0, Eosinophils % 3.1, Basophils % 0.5, Absolute Granulocytes 1.3 L, Absolute Lymphocytes 0.3 L, Absolute Monocytes 0.1, Absolute Eosinophils 0.1, Absolute Basophils 0 11/05/17 2340: PT 15.6 H, INR 1.43 H 11/05/17 1829: ESR Westergren 60 H Microbiology 11/06 164 BODY FLUID: AFB Culture with PCR Identification - RECD 11/06 1641 BODY FLUID: AFB Smear Concentration - RECD 11/06 1641 BODY FLUID: Fungal Culture - RECD 11/05 213 BLOOD: Blood Culture - RES 11/05 1828 BLOOD: Blood Culture - RES Assessment/Plan Assessment: 57-year-old woman with a history of Crohn's disease, in remission, hepatitis C with cirrhosis and pancytopenia, treated in the past with antiviral therapy, rheumatoid arthritis, with a history of a right rotator cuff tear 3 years prior to admission presented to the ED with a several day history of swelling and discomfort over the right sternoclavicular joint and continued pain in her right shoulder, with no associated fevers or chills. Assessment: 1. Osteomyelitis vs Septic Arthritis of Right Shoulder 2. Pancytopenia Plan: * CT guided aspiration of cyst today. * Will keep patient off antibiotics in case her fluid is insufficient for culture and IR needs a repeat sample. * Further evaluation with MRI tomorrow. * Orthopedic and CT surgery consult regarding her right shoulder. * Follow up blood cultures * Follow up fluid cultures. * Echocardiogram to evaluate for possible endocarditis. * Diet: Regular * DVT Prophylaxis: ALPS only. Patient has low platelets. * Code: Full Code Problem List: 1. Right shoulder strain Pain Ratin Pain Location: none Pain Goal: Remain pain free Pain Plan: none Tomorrow's Labs & Rationales: CBC, BEP
[2017-11-06 08:21] LABS: ABSOLUTE BASOPHIL COUNT 0 /CUMM (0.0-0.2); ABSOLUTE EOSINOPHIL COUNT 0.1 /CUMM (0.0-0.7); ABSOLUTE GRANULOCYTE CT 1.3 /CUMM (1.4-6.5); ABSOLUTE LYMPH COUNT 0.3 /CUMM (1.2-3.4); ABSOLUTE MONOCYTE COUNT 0.1 /CUMM (0.10-0.60); BASOPHIL % 0.5 % (0.0-2.0); EOSINOPHIL % 3.1 % (0-5); GRANULOCYTE % 73.3 % (42.2-75.2); HEMATOCRIT 24.8 % (37-47); MEAN CORPUSCULAR HGB 27.5 PG (27.0-31.0); MEAN CORPUSCULAR HGB CONC 32.9 G/DL (33.0-37.0); MEAN CORPUSCULAR VOLUME 83.7 FL (81.0-99.0); MEAN PLATELET VOLUME 8.6 FL (7.4-10.4); PLATELET COUNT 71 /CUMM (130-400); RBC DISTRIBUTION WIDTH 17.3 % (11.5-14.5); RED BLOOD CELL CT 2.97 /CUMM (4.20-5.40); WHITE BLOOD CELL COUNT 1.8 /CUMM (4.8-10.8)
--- NOTE | 2017-11-06 11:42 | Cons- Infect Disease ---
General Information and HPI Consulting Request Date of Consult: 11/06/17 Requested By: Francisca Fajardo MD Reason for Consult: Osteomyelitis/septic arthritis of the right sternoclavicular joint Source of Information: patient, old records History of Present Illness: This is a 57-year-old woman with a history of Crohn's disease, in remission, hepatitis C with cirrhosis and pancytopenia, treated in the past with antiviral therapy, questionable rheumatoid arthritis, with a history of a right rotator cuff tear 3 years prior to admission, and with frequent, unexplained falls, seen in the emergency room nearly 4 weeks prior to admission after falling on her upper back in the bathtub with the complaint of severe pain across her upper chest, with a CT of the head, cervical spine, chest, abdomen and pelvis negative for any acute process, discharged on Oxycodone, seen again in the emergency room nearly 2 weeks prior to admission with right shoulder pain and again discharged on Oxycodone, status post a steroid injection in her right shoulder 4 days prior to admission by Orthopedics, admitted on November 05 after presenting to the emergency room with a several day history of swelling and discomfort over the right sternoclavicular joint and continued pain in her right shoulder, with no associated fevers or chills. On admission she was afebrile. Laboratory data revealed a white blood cell count of 3000, H&H 10 and 30, platelets 81,000, BUN/ creatinine 13 and 0.6, with normal liver enzymes, INR 1.43. CT of the chest revealed increased soft tissue density anterior to the right sternoclavicular joint with a subtle erosive appearance of the head of the right clavicle and the adjacent manubrium. She was followed off antibiotics and has remained afebrile. At present she complains of pain and decreased range of motion of the right shoulder. Allergies/Medications Allergies: Coded Allergies: pollen extracts (Mild, STUFFY NOSE 11/25/16) Home Med List: Cetirizine HCl (Zyrtec) 10 MG TABLET 1 TAB PO DAILY ALLERGIES (Reported) Dexlansoprazole (Dexilant) 60 MG CAP.DR.BP 1 CAP PO DAILY PRN GI (Reported) Fluticasone Propionate 50 MCG/ACTUATION SPRAY.SUSP 2 SPRAY NASB DAILY ALLERGIES (Reported) Hydroxyzine HCl 10 MG TABLET 1 TAB PO TID ITCHING (Reported) Oxycodone HCl/Acetaminophen (Percocet 7.5-325 MG Tablet) 7.5 MG-325 MG TABLET 1 TAB PO TID PRN PAIN Oxycodone HCl/Acetaminophen (Percocet 5-325 MG Tablet) 5 MG-325 MG TABLET 1 TAB PO 4 TIMES/DAY PRN PAIN Oxycodone HCl/Acetaminophen (Percocet 10-325 MG Tablet) 10 MG-325 MG TABLET 1 TAB PO 4 TIMES/DAY PRN PAIN Oxycodone HCl/Acetaminophen (Percocet 5-325 MG Tablet) 5 MG-325 MG TABLET 1-2 TAB PO BID pain Ranitidine HCl 300 MG TABLET 1 TAB PO BID GI (Reported) Past History Travel History Traveled to [place] past 21 day No Medical History Blood Transfusion Hx: No Neurological: NONE EENT: SINUS POLYPS Cardiovascular: NONE Respiratory: NONE Gastrointestinal: Crohn's disease, BOWEL OBSTRUCTION GASTROPARESIS Hepatic: cirrhosis, hepatitis C Renal: UTI Musculoskeletal: falls, rheumatoid arthritis, TORN R ROTATOR CUFF Psychiatric: anxiety, depression, PANIC ATTACKS Endocrine: NONE Blood Disorders: NONE Cancer(s): NONE SERVICE SUPPORT REPRESENTATIVE/Reproductive: NONE Other Medical Hx: Cryoglobulinemia History of MRSA: Yes History of VRE: No History of CDIFF: No Isolation History: Standard Tetanus Vaccine: 02/03/15 Surgical History Surgical History: colon resection, tubal ligation, SINUS POLYPS CARPAL TUNNEL Psychosocial History Where Do You Live? Home Services at Home: None Smoking Status: Never Smoked ETOH Use: denies use Illicit Drug Use: denies illicit drug use Functional Ability ADLs Independent: dressing, eating, toileting, bathing. Ambulation: independent IADLs Independent: shopping, housework, finances, food prep, telephone, transportation , medication admin. Review of Systems Review of Systems All Other Systems: Reviewed and Negative Exam & Diagnostic Data Last 24 Hrs of Vital Signs/I&O Vital Signs Date Time Temp Pulse Resp B/P B/P Pulse O2 O2 Flow FiO2 Mean Ox Delivery Rate 11/06 0636 98.0 74 18 110/72 95 Room Air 11/05 2258 98.2 84 18 120/80 93 Room Air 11/05 2203 98.8 82 18 135/64 97 Room Air Room Air 11/05 2053 98.6 85 18 132/68 98 Room Air Room Air 11/05 1515 98.5 11/05 1514 90 18 129/80 98 Room Air Intake & Output 11/06 1600 11/06 0800 11/06 0000 Intake Total Output Total Balance Patient 181 lb 193 lb Weight Physical Exam Other Physical Findings: She is awake and alert in no acute distress. She is afebrile. Skin reveals no rash. HEENT exam is negative. Neck is supple with no adenopathy. Lungs are clear. Chest swelling over the right sternoclavicular joint, with no overlying erythema or tenderness. Heart regular rhythm with no murmur. Abdomen is soft, nontender with positive bowel sounds. Back no CVA tenderness. Extremities decreased range of motion of the right shoulder, with no overlying erythema or swelling; no cyanosis, clubbing or edema of the lower extremities. Neuro is without focality. Last 24 Hours of Lab Results: Laboratory Tests 11/06 11/06 11/05 1050 0658 2340 Chemistry Sodium (137 - 145 mmol/L) 141 Potassium (3.5 - 5.1 mmol/L) 4.0 Chloride (98 - 107 mmol/L) 106 Carbon Dioxide (22 - 30 mmol/L) 29 Anion Gap (5 - 16) 6 BUN (7 - 17 mg/dL) 11 Creatinine (0.5 - 1.0 mg/dL) 0.6 Estimated GFR (>60 ml/min) > 60 BUN/Creatinine Ratio (7 - 25 %) 18.3 Uric Acid (2.5 - 6.2 mg/dL) 5.0 Coagulation PT (9.4 - 12.5 SEC) 15.6 H INR (0.90 - 1.19) 1.43 H Hematology CBC w Diff NO MAN DIFF REQ WBC (4.8 - 10.8 /CUMM) 1.8 L RBC (4.20 - 5.40 /CUMM) 2.97 L Hgb (12.0 - 16.0 G/DL) 8.2 L Hct (37 - 47 %) 24.8 L MCV (81.0 - 99.0 FL) 83.7 MCH (27.0 - 31.0 PG) 27.5 MCHC (33.0 - 37.0 G/DL) 32.9 L RDW (11.5 - 14.5 %) 17.3 H Plt Count (130 - 400 /CUMM) 71 L MPV (7.4 - 10.4 FL) 8.6 Gran % (42.2 - 75.2 %) 73.3 Lymphocytes % (20.5 - 51.1 %) 16.1 L Monocytes % (1.7 - 9.3 %) 7.0 Eosinophils % (0 - 5 %) 3.1 Basophils % (0.0 - 2.0 %) 0.5 Absolute Granulocytes (1.4 - 6.5 /CUMM) 1.3 L Absolute Lymphocytes (1.2 - 3.4 /CUMM) 0.3 L Absolute Monocytes (0.10 - 0.60 /CUMM) 0.1 Absolute Eosinophils (0.0 - 0.7 /CUMM) 0.1 Absolute Basophils (0.0 - 0.2 /CUMM) 0 Toxicology Methadone Screen (>300 NG/ML) Pending Barbiturate Screen (>200 NG/ML) Pending Ur Phencyclidine Scrn (>25 NG/ML) Pending Amphetamines Screen (>1000 NG/ML) Pending U Benzodiazepines Scrn (>200 NG/ML) Pending Urine Cocaine Screen (>300 NG/ML) Pending Urine Cannabis Screen (>50 NG/ML) Pending 11/05 11/05 1829 1545 Chemistry Sodium (137 - 145 mmol/L) 141 Potassium (3.5 - 5.1 mmol/L) 3.9 Chloride (98 - 107 mmol/L) 104 Carbon Dioxide (22 - 30 mmol/L) 29 Anion Gap (5 - 16) 9 BUN (7 - 17 mg/dL) 13 Creatinine (0.5 - 1.0 mg/dL) 0.6 Estimated GFR (>60 ml/min) > 60 BUN/Creatinine Ratio (7 - 25 %) 21.7 Glucose (65 - 99 mg/dL) 101 H Lactic Acid (0.7 - 2.1 mmol/L) 1.4 Calcium (8.4 - 10.2 mg/dL) 8.8 Total Bilirubin (0.2 - 1.3 mg/dL) 1.2 AST (14 - 36 U/L) 23 ALT (9 - 52 U/L) 23 Alkaline Phosphatase (<127 U/L) 76 C-Reactive Prot, Quant (<1.0 mg/dL) 2.0 H Total Protein (6.3 - 8.2 g/dL) 7.4 Albumin (3.5 - 5.0 g/dL) 3.2 L Globulin (1.9 - 4.2 gm/dL) 4.2 Albumin/Globulin Ratio (1.1 - 2.2 %) 0.8 L Hematology CBC w Diff NO MAN DIFF REQ WBC (4.8 - 10.8 /CUMM) 3.1 L RBC (4.20 - 5.40 /CUMM) 3.54 L Hgb (12.0 - 16.0 G/DL) 9.7 L Hct (37 - 47 %) 29.6 L MCV (81.0 - 99.0 FL) 83.6 MCH (27.0 - 31.0 PG) 27.4 MCHC (33.0 - 37.0 G/DL) 32.8 L RDW (11.5 - 14.5 %) 17.1 H Plt Count (130 - 400 /CUMM) 81 L MPV (7.4 - 10.4 FL) 7.5 Gran % (42.2 - 75.2 %) 78.5 H Lymphocytes % (20.5 - 51.1 %) 12.4 L Monocytes % (1.7 - 9.3 %) 6.4 Eosinophils % (0 - 5 %) 2.1 Basophils % (0.0 - 2.0 %) 0.6 Absolute Granulocytes (1.4 - 6.5 /CUMM) 2.4 Absolute Lymphocytes (1.2 - 3.4 /CUMM) 0.4 L Absolute Monocytes (0.10 - 0.60 /CUMM) 0.2 Absolute Eosinophils (0.0 - 0.7 /CUMM) 0.1 Absolute Basophils (0.0 - 0.2 /CUMM) 0 ESR Westergren (0 - 20 MM) 60 H Last 24 Hours of Kavin Results: Blood cultures November 05 negative Diagnostic Data Recent Imaging Findings: CT of the chest revealed increased soft tissue density anterior to the right sternoclavicular joint with a subtle erosive appearance of the head of the right clavicle and the adjacent manubrium. Assessment/Plan Assessment/Plan Impression: This is a 57-year-old woman with a history of hepatitis C, with cirrhosis and pancytopenia, right rotator cuff tear 3 years prior to admission, with frequent, unexplained falls, most recently 4 weeks prior to admission on her upper back in the bathtub, evaluated in the ER for severe pain across her upper chest, with a CT of the head, cervical spine, chest, abdomen and pelvis negative for any acute process, seen again in the emergency room 2 weeks prior to admission with right shoulder pain, status post a steroid injection in her right shoulder 4 days prior to admission by Orthopedics, admitted on November 05 with a several day history of swelling and discomfort over the right sternoclavicular joint and continued pain in her right shoulder, found to be afebrile with pancytopenia and with a CT of the chest revealing findings suggestive of septic arthritis and osteomyelitis of the right sternoclavicular joint and clavicle. Her imaging is suggestive of infection involving the right sternoclavicular joint and head of the clavicle and adjacent manubrium. The most likely source would be her recent trauma, with a break in the skin resulting in a bacteremia with subsequent seeding of this area. She did have a recent steroid injection in the right shoulder, but this is unlikely to have resulted in infection in this area and her symptoms predated the injection. Sternoclavicular joint infections are often seen in IV drug abusers but she denies any history of this. Have discussed with IR, who can aspirate this area to confirm infection and identify the pathogen(s) responsible. If infection is confirmed she will likely need debridement/drainage of this area. 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 Suggestion: 1. Would pursue CT-guided aspiration of the right sternoclavicular joint (have discussed with IR) 2. Follow-up culture of the above aspiration 3. Consider need for MRI based on above 4. Will likely need Thoracic surgery evaluation based on above 5. Orthopedic follow-up of her right shoulder 6. Continue to follow off antibiotics pending above Consult Acknowledgment - Thank you for your consult request.
--- NOTE | 2017-11-06 13:01 | PN- Att Addend ---
Attending Addendum Attending Brief Note Patient seen and examined, still complaining of some pain in her right clavicular region. There is one area which is significantly tender on palpation. She was admitted with painful swelling of the right clavicular/ sternoclavicular joint area with possibility off septic arthritis/osteomyelitis. Vital Signs Date Time Temp Pulse Resp B/P B/P Pulse O2 O2 Flow FiO2 Mean Ox Delivery Rate 11/06 0636 98.0 74 18 110/72 95 Room Air 11/05 2258 98.2 84 18 120/80 93 Room Air 11/05 2203 98.8 82 18 135/64 97 Room Air Room Air 11/05 2053 98.6 85 18 132/68 98 Room Air Room Air 11/05 1515 98.5 11/05 1514 90 18 129/80 98 Room Air on exam; aox3, nad. cv; s1,s2, rrr resp; clear abd; soft, nt, bs+ ext; no edema skin/ms: + swelling with some erythema and tenderness right sternoclavicular joint and the area just below it. Laboratory Tests 11/06 11/06 11/05 1050 0658 2340 Chemistry Sodium (137 - 145 mmol/L) 141 Potassium (3.5 - 5.1 mmol/L) 4.0 Chloride (98 - 107 mmol/L) 106 Carbon Dioxide (22 - 30 mmol/L) 29 Anion Gap (5 - 16) 6 BUN (7 - 17 mg/dL) 11 Creatinine (0.5 - 1.0 mg/dL) 0.6 Estimated GFR (>60 ml/min) > 60 BUN/Creatinine Ratio (7 - 25 %) 18.3 Uric Acid (2.5 - 6.2 mg/dL) 5.0 Coagulation PT (9.4 - 12.5 SEC) 15.6 H INR (0.90 - 1.19) 1.43 H Hematology CBC w Diff NO MAN DIFF REQ WBC (4.8 - 10.8 /CUMM) 1.8 L RBC (4.20 - 5.40 /CUMM) 2.97 L Hgb (12.0 - 16.0 G/DL) 8.2 L Hct (37 - 47 %) 24.8 L MCV (81.0 - 99.0 FL) 83.7 MCH (27.0 - 31.0 PG) 27.5 MCHC (33.0 - 37.0 G/DL) 32.9 L RDW (11.5 - 14.5 %) 17.3 H Plt Count (130 - 400 /CUMM) 71 L MPV (7.4 - 10.4 FL) 8.6 Gran % (42.2 - 75.2 %) 73.3 Lymphocytes % (20.5 - 51.1 %) 16.1 L Monocytes % (1.7 - 9.3 %) 7.0 Eosinophils % (0 - 5 %) 3.1 Basophils % (0.0 - 2.0 %) 0.5 Absolute Granulocytes (1.4 - 6.5 /CUMM) 1.3 L Absolute Lymphocytes (1.2 - 3.4 /CUMM) 0.3 L Absolute Monocytes (0.10 - 0.60 /CUMM) 0.1 Absolute Eosinophils (0.0 - 0.7 /CUMM) 0.1 Absolute Basophils (0.0 - 0.2 /CUMM) 0 Toxicology Urine Opiates Screen (>2000 NG/ML) 3545.00 H Methadone Screen (>300 NG/ML) < 40 Barbiturate Screen (>200 NG/ML) < 60 Ur Phencyclidine Scrn (>25 NG/ML) < 6.00 Amphetamines Screen (>1000 NG/ML) < 100 U Benzodiazepines Scrn (>200 NG/ML) < 85 Urine Cocaine Screen (>300 NG/ML) < 50 Urine Cannabis Screen (>50 NG/ML) < 5.00 11/05 11/05 1829 1545 Chemistry Sodium (137 - 145 mmol/L) 141 Potassium (3.5 - 5.1 mmol/L) 3.9 Chloride (98 - 107 mmol/L) 104 Carbon Dioxide (22 - 30 mmol/L) 29 Anion Gap (5 - 16) 9 BUN (7 - 17 mg/dL) 13 Creatinine (0.5 - 1.0 mg/dL) 0.6 Estimated GFR (>60 ml/min) > 60 BUN/Creatinine Ratio (7 - 25 %) 21.7 Glucose (65 - 99 mg/dL) 101 H Lactic Acid (0.7 - 2.1 mmol/L) 1.4 Calcium (8.4 - 10.2 mg/dL) 8.8 Total Bilirubin (0.2 - 1.3 mg/dL) 1.2 AST (14 - 36 U/L) 23 ALT (9 - 52 U/L) 23 Alkaline Phosphatase (<127 U/L) 76 C-Reactive Prot, Quant (<1.0 mg/dL) 2.0 H Total Protein (6.3 - 8.2 g/dL) 7.4 Albumin (3.5 - 5.0 g/dL) 3.2 L Globulin (1.9 - 4.2 gm/dL) 4.2 Albumin/Globulin Ratio (1.1 - 2.2 %) 0.8 L Hematology CBC w Diff NO MAN DIFF REQ WBC (4.8 - 10.8 /CUMM) 3.1 L RBC (4.20 - 5.40 /CUMM) 3.54 L Hgb (12.0 - 16.0 G/DL) 9.7 L Hct (37 - 47 %) 29.6 L MCV (81.0 - 99.0 FL) 83.6 MCH (27.0 - 31.0 PG) 27.4 MCHC (33.0 - 37.0 G/DL) 32.8 L RDW (11.5 - 14.5 %) 17.1 H Plt Count (130 - 400 /CUMM) 81 L MPV (7.4 - 10.4 FL) 7.5 Gran % (42.2 - 75.2 %) 78.5 H Lymphocytes % (20.5 - 51.1 %) 12.4 L Monocytes % (1.7 - 9.3 %) 6.4 Eosinophils % (0 - 5 %) 2.1 Basophils % (0.0 - 2.0 %) 0.6 Absolute Granulocytes (1.4 - 6.5 /CUMM) 2.4 Absolute Lymphocytes (1.2 - 3.4 /CUMM) 0.4 L Absolute Monocytes (0.10 - 0.60 /CUMM) 0.2 Absolute Eosinophils (0.0 - 0.7 /CUMM) 0.1 Absolute Basophils (0.0 - 0.2 /CUMM) 0 ESR Westergren (0 - 20 MM) 60 H A/P; 57 y/o F with pmh sig for hepatitis C treated with Harvoni, cirrhosis, Crohn's disease status post large and small bowel resections, GERD, rheumatoid arthritis, anxiety, depression, carpal tunnel syndrome status post bilateral surgery admitted with right sided chest swelling/erythema and tenderness and found to have possible right sternoclavicular joint septic arthritis/ osteomyelitis. Patient infectious disease input. Patient to go down to interventional radiology for the arthrocentesis. We'll check Gram stain and culture. Antibiotics will be pending above. We'll also call CT surgery consult pending above. Patient will likely need MRI. Unfortunately no MRI available today therefore it will have to be done tomorrow. Continue current pain management. Further treatment will be pending Gram stain culture results.
[2017-11-06 14:16] VITALS: BP 116/66
[2017-11-06 16:58] VITALS: BP 100/60
[2017-11-06 21:52] VITALS: BP 120/70
--- NOTE | 2017-11-07 07:06 | PN- Housestaff ---
Arlin HERCULES,[facility] 11/07/17 0706: Subjective Follow-up For: Osteomyelitis vs Septic arthritis of right sternoclavicular joint Subjective: Patient seen and examined. Still has tenderness in her chest unchanged from yesterday. No other complaints. Review of Systems Constitutional: Reports: no symptoms. Objective Last 24 Hrs of Vital Signs/I&O Vital Signs Date Time Temp Pulse Resp B/P B/P Pulse O2 O2 Flow FiO2 Mean Ox Delivery Rate 11/07 0728 98.3 75 18 124/68 95 11/06 2152 97.9 78 18 120/70 99 Room Air 11/06 1658 97.8 76 18 100/60 97 Room Air 11/06 1416 98.5 79 18 116/66 95 Room Air Intake & Output 11/07 1600 11/07 0800 11/07 0000 Intake Total 240 800 Output Total Balance 240 800 Intake, Oral 240 800 Physical Exam General Appearance: Alert, Oriented X3, Cooperative, Mild Distress Skin: No Rashes, No Breakdown Skin Temp/Moisture Exam: Warm/Dry Sepsis Skin Exam (color): Normal for Ethnicity HEENT: Atraumatic Cardiovascular: Normal S1, Normal S2, No Murmurs, tenderness to palpation in right infraclavicular region Lungs: Clear to Auscultation, Normal Air Movement Abdomen: Soft, No Tenderness Neurological: Normal Speech Extremities: No Edema Assessment/Plan Assessment: 57-year-old woman with a history of Crohn's disease, in remission, hepatitis C with cirrhosis and pancytopenia, treated in the past with antiviral therapy, rheumatoid arthritis, with a history of a right rotator cuff tear 3 years prior to admission presented to the ED with a several day history of swelling and discomfort over the right sternoclavicular joint and continued pain in her right shoulder, with no associated fevers or chills. Assessment: 1. Osteomyelitis and Septic Arthritis of right sternoclavicular joint 2. Pancytopenia Plan: * CT guided aspiration of cyst yesterday. * Her cultures so far have not shown any growth. * Will keep patient off antibiotics for now as she may require further drainage of her fluid for another sample for culture. This can be done on Sunday. * MRI shows right sternoclavicular septic arthritis with periarticular osteomyelitis. * CT surgery consult - pending. * blood cultures show no growth so far. * Echocardiogram showed no obvious vegetative lesions. * Diet: Regular * DVT Prophylaxis: ALPS only. Patient has low platelets. * Code: Full Code Problem List: 1. Osteomyelitis Pain Ratin Pain Location: none Pain Goal: Remain pain free Pain Plan: none Tomorrow's Labs & Rationales: Francisca Keita MD 11/07/17 1311: Attending MD Review Statement Attending Statement Attending MD Statement: examined this patient, discuss w/resident/PA/COMMUNICATIONS LEAD, agreed w/resident/PA/COMMUNICATIONS LEAD, reviewed EMR data (avail), discussed with nursing, discussed with case mgmt, reviewed images, amended to note Attending Assessment/Plan: Patient seen and examined, still a lot of pain. So far the cultures from the interventional radiology aspiration is negative Vital Signs Date Time Temp Pulse Resp B/P B/P Pulse O2 O2 Flow FiO2 Mean Ox Delivery Rate 11/07 0728 98.3 75 18 124/68 95 11/06 2152 97.9 78 18 120/70 99 Room Air 11/06 1658 97.8 76 18 100/60 97 Room Air 11/06 1416 98.5 79 18 116/66 95 Room Air on exam; aox3, nad. cv; s1,s2, rrr resp; clear abd; soft, nt, bs+ ext; no edema skin/ms: + swelling with some erythema and tenderness right sternoclavicular joint and the area just below it. Laboratory Tests 11/07 11/06 0703 1642 Chemistry Sodium (137 - 145 mmol/L) 144 Potassium (3.5 - 5.1 mmol/L) 3.9 Chloride (98 - 107 mmol/L) 109 H Carbon Dioxide (22 - 30 mmol/L) 27 Anion Gap (5 - 16) 7 BUN (7 - 17 mg/dL) 11 Creatinine (0.5 - 1.0 mg/dL) 0.6 Estimated GFR (>60 ml/min) > 60 BUN/Creatinine Ratio (7 - 25 %) 18.3 Hematology CBC w Diff NO MAN DIFF REQ WBC (4.8 - 10.8 /CUMM) 2.0 L RBC (4.20 - 5.40 /CUMM) 3.03 L Hgb (12.0 - 16.0 G/DL) 8.4 L Hct (37 - 47 %) 25.5 L MCV (81.0 - 99.0 FL) 84.3 MCH (27.0 - 31.0 PG) 27.7 MCHC (33.0 - 37.0 G/DL) 32.9 L RDW (11.5 - 14.5 %) 16.9 H Plt Count (130 - 400 /CUMM) 76 L MPV (7.4 - 10.4 FL) 8.5 Gran % (42.2 - 75.2 %) 76.9 H Lymphocytes % (20.5 - 51.1 %) 13.7 L Monocytes % (1.7 - 9.3 %) 5.9 Eosinophils % (0 - 5 %) 2.8 Basophils % (0.0 - 2.0 %) 0.7 Absolute Granulocytes (1.4 - 6.5 /CUMM) 1.5 Absolute Lymphocytes (1.2 - 3.4 /CUMM) 0.3 L Absolute Monocytes (0.10 - 0.60 /CUMM) 0.1 Absolute Eosinophils (0.0 - 0.7 /CUMM) 0.1 Absolute Basophils (0.0 - 0.2 /CUMM) 0 Other Body Source Fluid WBC Cancelled Fld Total RBCs Counted Cancelled A/P; 57 y/o F with pmh sig for hepatitis C treated with Harvoni, cirrhosis, Crohn's disease status post large and small bowel resections, GERD, rheumatoid arthritis, anxiety, depression, carpal tunnel syndrome status post bilateral surgery admitted with right sided chest swelling/erythema and tenderness and found to have possible right sternoclavicular joint septic arthritis/ osteomyelitis. MRI confirms the above finding. Patient needs CT surgery consult. Will discuss further with infectious disease. Patient currently is not started on any antibiotics. Continue current pain management. DVT px; ALPS secondary to thrombocytopenia.
[2017-11-07 07:28] VITALS: BP 124/68
[2017-11-07 08:12] LABS: ABSOLUTE BASOPHIL COUNT 0 /CUMM (0.0-0.2); ABSOLUTE EOSINOPHIL COUNT 0.1 /CUMM (0.0-0.7); ABSOLUTE GRANULOCYTE CT 1.5 /CUMM (1.4-6.5); ABSOLUTE LYMPH COUNT 0.3 /CUMM (1.2-3.4); ABSOLUTE MONOCYTE COUNT 0.1 /CUMM (0.10-0.60); BASOPHIL % 0.7 % (0.0-2.0); EOSINOPHIL % 2.8 % (0-5); GRANULOCYTE % 76.9 % (42.2-75.2); HEMATOCRIT 25.5 % (37-47); MEAN CORPUSCULAR HGB 27.7 PG (27.0-31.0); MEAN CORPUSCULAR HGB CONC 32.9 G/DL (33.0-37.0); MEAN CORPUSCULAR VOLUME 84.3 FL (81.0-99.0); MEAN PLATELET VOLUME 8.5 FL (7.4-10.4); PLATELET COUNT 76 /CUMM (130-400); RBC DISTRIBUTION WIDTH 16.9 % (11.5-14.5); RED BLOOD CELL CT 3.03 /CUMM (4.20-5.40)
--- NOTE | 2017-11-07 09:40 | ECHOCARDIOGRAM REPORT ---
JONA SOLORZANO Age: 57 : 1960 Gender: F Exam Date: 11/06/2017 18:53 Exam Location: [address] [place] [address] Ht (in): 69 Wt (lb): 159 BSA: 1.88 BP: 110 / 72 Ordering Physician: Radha Domingo MD Referring Physician: Radha Domingo MD Technologist: Mya Rivera [facility] Room Number: 204-01 Indications: INFECTIVE ENDOCARDITIS Rhythm: Sinus Technical Quality: Fair, Technically difficult study FINDINGS Left Ventricle Normal size left ventricle. No obvious regional wall motion abnormalities. Normal left ventricular ejection fraction estimated at 65-70%. Right Ventricle Right ventricle not well visualized, grossly normal. Right Atrium Normal right atrial size. Left Atrium Mild left atrial dilatation. Mitral Valve Mitral valve thickened. Trace mitral regurgitation. Aortic Valve Trileaflet aortic valve. Focal thickening of the aortic valve cusps. No aortic stenosis. No aortic regurgitation. Tricuspid Valve Tricuspid valve not well visualized, grossly normal. Trace tricuspid regurgitation. Pulmonic Valve Structurally normal pulmonic valve. Trace pulmonic regurgitation. Pericardium No pericardial effusion. Great Vessels Aortic root and proximal ascending aorta not well visualized, grossly normal. CONCLUSIONS 1. This was a technically difficult examination. 2. Minimal aortic sclerosis is present with no valvular stenosis or insufficiency. 3. Mitral leaflet thickening is present with redundant chordal structures and chordal BENNIE with no valvular prolapse and no LVOT obstruction at rest. Minimal mitral insufficiency is present with mild left atrial enlargement. 4. There is no pericardial fluid detected. 5. The left ventricular chamber size and systolic function appear normal. 6. Minimal tricuspid and pulmonic insufficiency are present with no evidence of pulmonary hypertension. 7. There are no obvious vegetative lesions detected on this examination. Cesar Alexandra M.D. (Electronically Signed) Final Date: 07 November 2017 09:39 MEASUREMENTS (Male / Female) Normal Values 2D ECHO LV Diastolic Diameter PLAX 3.6 cm 4.2 - 5.9 / 3.9 - 5.3 cm LV Systolic Diameter PLAX 2.3 cm 2.1 - 4.0 cm LV Fractional Shortening PLAX 36.1 % 25 - 46 % LV Ejection Fraction 2D Teich 66.7 % IVS Diastolic Thickness 1.3 cm LVPW Diastolic Thickness 1.3 cm LV Relative Wall Thickness 0.7 RV Internal Dim ED PLAX 3.3 cm 1.9 - 3.8 cm LVOT Diameter 2.0 cm Aortic Root Diameter 3.0 cm LA Systolic Diameter LX 3.9 cm 3.0 - 4.0 / 2.7 - 3.8 cm LA Volume 36.0 cm 18 - 58 / 22 - 52 cm Ascending Aorta Diameter 3.4 cm DOPPLER AV Peak Velocity 161.0 cm/s AV Peak Gradient 10.4 mmHg AV Mean Velocity 119.0 cm/s AV Mean Gradient 6.0 mmHg AV Velocity Time Integral 34.4 cm LVOT Peak Velocity 115.0 cm/s LVOT Peak Gradient 5.3 mmHg LVOT Mean Velocity 84.4 cm/s LVOT Mean Gradient 3.0 mmHg LVOT Velocity Time Integral 25.4 cm LVOT Stroke Volume 79.8 cm AV Area Cont Eq vti 2.3 cm AV Area Cont Eq pk 2.2 cm MV Peak Velocity 102.0 cm/s MV Peak Gradient 4.2 mmHg MV Mean Velocity 57.1 cm/s MV Mean Gradient 2.0 mmHg Mitral E Point Velocity 68.1 cm/s Mitral A Point Velocity 68.6 cm/s Mitral E to A Ratio 1.0 MV PHT Velocity 109.0 cm/s MV Deceleration [place] 663.0 cm/s MV Pressure Half Time 49.3 ms MV Area PHT 4.5 cm MV Deceleration Time 235.0 ms TR Peak Velocity 109.0 cm/s TR Peak Gradient 4.8 mmHg Right Atrial Pressure 5.0 mmHg Pulmonary Artery Systolic Pressu 9.8 mmHg Right Ventricular Systolic Press 9.8 mmHg PV Peak Velocity 105.0 cm/s PV Peak Gradient 4.4 mmHg PV Mean Velocity 75.8 cm/s PV Mean Gradient 3.0 mmHg PV Velocity Time Integral 26.6 cm LV E' Lateral Velocity 9.0 cm/s Mitral E to LV E' Lateral Ratio 7.6 LV E' Septal Velocity 6.5 cm/s Mitral E to LV E' Septal Ratio 10.4
--- NOTE | 2017-11-07 13:00 | MRI REPORT ---
EXAMINATION: MR SHOULDER WITHOUT AND WITH CONTRAST, RIGHT CLINICAL INFORMATION: Right sternoclavicular joint septic arthritis/osteomyelitis. COMPARISON: CT dated 11/05/2017. TECHNIQUE: MRI of the right sternoclavicular joint is performed before and after the intravenous administration of 8 mL Gadavist using routine sequences. FINDINGS: The right sternoclavicular joint space is expanded with synovitis and effusion. The surrounding soft tissues are edematous and enhancing. Periarticular edema signal, enhancement, and low T1 signal are present at the clavicular head and adjacent manubrium, consistent with septic arthritis and adjacent osteomyelitis. Subtle erosive changes are present at the manubrium and inferior margin of the clavicular head. The left sternoclavicular joint is more normal in appearance with mild osteoarthritis. No significant synovitis. There is mild edema signal and enhancement within the distal margin of the right 1st rib without convincing evidence of osteomyelitis. Edema signal and enhancement are present within the overlying sternal head of the pectoralis major muscle, reactive to the septic arthritis. As seen on images 10 and 11 of series 17, small loculations of fluid escape from the anterior joint capsule into the pectoralis major muscle, likely either small abscesses or synovial outpouchings of the joint. Edema signal and enhancement are also present within the distal margin of the right sternocleidomastoid muscle. Incidental note is made of enlarged lymph nodes in the upper mediastinum in the upper paratracheal region, measuring up to 1.2 cm in short axis, likely reactive. Imaged portion of the mediastinum is otherwise unremarkable. IMPRESSION: 1. 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 2. Reactive mediastinal adenopathy.
--- NOTE | 2017-11-07 14:32 | PN- Infect Dx ---
Subjective Subjective: Afebrile. She complains of pain in the right sternoclavicular area. She also continues to complain of right shoulder pain with limited range of motion. Objective Last 24 Hrs of Vital Signs/I&O Vital Signs Date Time Temp Pulse Resp B/P B/P Pulse O2 O2 Flow FiO2 Mean Ox Delivery Rate 11/07 0728 98.3 75 18 124/68 95 11/06 2152 97.9 78 18 120/70 99 Room Air 11/06 1658 97.8 76 18 100/60 97 Room Air Intake & Output 11/07 1600 11/07 0800 11/07 0000 Intake Total 960 240 800 Output Total Balance 960 240 800 Intake, IV 10 Intake, Oral 950 240 800 Number 0 Bowel Movements Physical Exam Other Physical Findings: She appears comfortable in no acute distress Chest tenderness over the right sternoclavicular area, with minimal swelling noted Extremities decreased range of motion of the right shoulder Results Last 24 Hours of Lab Results: Laboratory Tests 11/07 11/06 0703 1642 Chemistry Sodium (137 - 145 mmol/L) 144 Potassium (3.5 - 5.1 mmol/L) 3.9 Chloride (98 - 107 mmol/L) 109 H Carbon Dioxide (22 - 30 mmol/L) 27 Anion Gap (5 - 16) 7 BUN (7 - 17 mg/dL) 11 Creatinine (0.5 - 1.0 mg/dL) 0.6 Estimated GFR (>60 ml/min) > 60 BUN/Creatinine Ratio (7 - 25 %) 18.3 Hematology CBC w Diff NO MAN DIFF REQ WBC (4.8 - 10.8 /CUMM) 2.0 L RBC (4.20 - 5.40 /CUMM) 3.03 L Hgb (12.0 - 16.0 G/DL) 8.4 L Hct (37 - 47 %) 25.5 L MCV (81.0 - 99.0 FL) 84.3 MCH (27.0 - 31.0 PG) 27.7 MCHC (33.0 - 37.0 G/DL) 32.9 L RDW (11.5 - 14.5 %) 16.9 H Plt Count (130 - 400 /CUMM) 76 L MPV (7.4 - 10.4 FL) 8.5 Gran % (42.2 - 75.2 %) 76.9 H Lymphocytes % (20.5 - 51.1 %) 13.7 L Monocytes % (1.7 - 9.3 %) 5.9 Eosinophils % (0 - 5 %) 2.8 Basophils % (0.0 - 2.0 %) 0.7 Absolute Granulocytes (1.4 - 6.5 /CUMM) 1.5 Absolute Lymphocytes (1.2 - 3.4 /CUMM) 0.3 L Absolute Monocytes (0.10 - 0.60 /CUMM) 0.1 Absolute Eosinophils (0.0 - 0.7 /CUMM) 0.1 Absolute Basophils (0.0 - 0.2 /CUMM) 0 Other Body Source Fluid WBC Cancelled Fld Total RBCs Counted Cancelled Last 24 Hours of Kavin Results: Blood cultures 2 November 05 negative Aspiration of the right sternoclavicular joint November 06 negative Recent Imaging Studies: MRI of the right shoulder November 07 reveals a sternoclavicular septic arthritis with periarticular osteomyelitis at the clavicular head and sternum Assessment/Plan ID Impression: Stable, with temperatures remaining normal, off antibiotics status post aspiration of the right sternoclavicular joint by IR yesterday, with the culture so far negative. Her white blood cell count is not a useful parameter as she is pancytopenic secondary to her underlying cirrhosis, which does increase her susceptibility to infection. Her MRI confirms the suspicion on CT scan of a septic arthritis and osteomyelitis and, as discussed with Thoracic surgery, debridement will likely be necessary. She has apparently been evaluated by Orthopedics for her limited range of motion of her right shoulder, which is felt to be secondary to a rotator cuff injury. Suggestion: 1. Follow-up culture of the recent aspiration 2. Await Thoracic surgery evaluation 3. Continue to follow off antibiotics pending above
[2017-11-07 14:39] VITALS: BP 124/82
--- NOTE | 2017-11-07 16:48 | Cons- Thoracic Surgery ---
General Information and HPI Consulting Request Date of Consult: 11/07/17 Requested By: Francisca Fajardo MD Reason for Consult: Evaluate right sternoclavicular joint osteomyelitis Source of Information: patient, old records, PCP Exam Limitations: no limitations History of Present Illness: Patient is a 57-year-old woman with multiple immunosuppressive conditions who fell 4 weeks ago in her bathtub and developed some significant pain across her anterior chest. She returned to the emergency room 2 weeks later with significant shoulder pain. She did have a steroid injection into the right shoulder 4 days ago. She comes to the emergency room this time with significant swelling over the upper part of her chest with associated tenderness. She is admitted in evaluation is suspicious for a sternoclavicular joint septic arthritis with osteomyelitis. Thoracic surgically evaluation is asked for help in management and treatment. Allergies/Medications Allergies: Coded Allergies: pollen extracts (Mild, STUFFY NOSE 11/25/16) Home Med List: Cetirizine HCl (Zyrtec) 10 MG TABLET 1 TAB PO DAILY ALLERGIES (Reported) Dexlansoprazole (Dexilant) 60 MG CAP.BP 1 CAP PO DAILY PRN GI (Reported) Fluticasone Propionate 50 MCG/ACTUATION SPRAY.SUSP 2 SPRAY NASB DAILY ALLERGIES (Reported) Hydroxyzine HCl 10 MG TABLET 1 TAB PO TID ITCHING (Reported) Oxycodone HCl/Acetaminophen (Percocet 7.5-325 MG Tablet) 7.5 MG-325 MG TABLET 1 TAB PO TID PRN PAIN Oxycodone HCl/Acetaminophen (Percocet 5-325 MG Tablet) 5 MG-325 MG TABLET 1 TAB PO 4 TIMES/DAY PRN PAIN Oxycodone HCl/Acetaminophen (Percocet 10-325 MG Tablet) 10 MG-325 MG TABLET 1 TAB PO 4 TIMES/DAY PRN PAIN Oxycodone HCl/Acetaminophen (Percocet 5-325 MG Tablet) 5 MG-325 MG TABLET 1-2 TAB PO BID pain Ranitidine HCl 300 MG TABLET 1 TAB PO BID GI (Reported) Current Medications: Current Medications Sig/Juli Start time Last Medication Dose Route Stop Time Status Admin Acetaminophen 650 MG Q8P PRN 11/05 2315 AC PO Dextrose/Sodium 1,000 ML Q13H 11/08 0600 AC Chloride IV Dextrose/Sodium 1,000 ML Q13H 11/07 1530 DC Chloride IV Ibuprofen 600 MG .STK-MED ONE 11/06 1756 DC PO 11/06 1757 Ibuprofen 600 MG Q8P PRN 11/05 2315 AC 11/06 PO 1757 Lidocaine 1 ML .STK-MED ONE 11/06 1656 DC ID 11/06 1657 Morphine Sulfate 1 MG Q8P PRN 11/05 2315 AC 11/07 IV 1239 Omeprazole 40 MG DAILY AC 11/06 0700 AC 11/07 PO 0457 Past History Medical History Blood Transfusion Hx: No Neurological: NONE EENT: SINUS POLYPS Cardiovascular: NONE Respiratory: NONE Gastrointestinal: Crohn's disease, BOWEL OBSTRUCTION GASTROPARESIS Hepatic: cirrhosis, hepatitis C Renal: UTI Musculoskeletal: falls, rheumatoid arthritis, TORN R ROTATOR CUFF Psychiatric: anxiety, depression, PANIC ATTACKS Endocrine: NONE Blood Disorders: NONE Cancer(s): NONE 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 Home Services at Home: None Smoking Status: Never Smoked ETOH Use: denies use Illicit Drug Use: denies illicit drug use Functional Ability ADLs Independent: dressing, eating, toileting, bathing. Ambulation: independent IADLs Independent: shopping, housework, finances, food prep, telephone, transportation , medication admin. Review of Systems Review of Systems: Review of systems is notable for tenderness on the upper chest along with some continued shoulder pain with decreased range of motion of that right shoulder. She has had no anginal type chest pain. She says there have been no fevers night sweats or chills. She has had no dyspnea. The rest of her 12 point review of systems is unremarkable. Exam & Diagnostic Data Vital Signs and I&O Vital Signs Date Time Temp Pulse Resp B/P B/P Pulse O2 O2 Flow FiO2 Mean Ox Delivery Rate 11/07 1439 98.6 78 20 124/82 100 Room Air 11/07 0728 98.3 75 18 124/68 95 11/06 2152 97.9 78 18 120/70 99 Room Air 11/06 1658 97.8 76 18 100/60 97 Room Air Intake & Output 11/07 1600 11/07 0800 11/07 0000 11/06 1600 11/06 0800 11/06 0000 Intake Total 960 240 800 290 Output Total 550 Balance 960 240 800 -260 Intake, IV 10 50 Intake, Oral 950 240 800 240 Number 0 0 Bowel Movements Output, Urine 550 Patient 181 lb 193 lb Weight Physical Exam: On physical examination she appears well. Her skin is warm and well perfused no suspicious lesions noted. The sclerae are anicteric and mucous membranes are moist. There is no cervical or subclavicular lymphadenopathy. Her breath sounds are clear and full bilaterally with no wheezes rhonchi noted. The cardiac exam shows regular rhythm and rate no murmurs or sounds. There is a palpable swelling at the right sternoclavicular joint which is tender and nonfluctuant. There is no significant erythema in this area. Her abdomen is soft and nontender with no masses. The periphery shows no cyanosis clubbing or edema. Her neurologic exam is grossly normal motor and sensory function. Last 24 Hours of Labs: Laboratory Tests 11/07 0703 Chemistry Sodium (137 - 145 mmol/L) 144 Potassium (3.5 - 5.1 mmol/L) 3.9 Chloride (98 - 107 mmol/L) 109 H Carbon Dioxide (22 - 30 mmol/L) 27 Anion Gap (5 - 16) 7 BUN (7 - 17 mg/dL) 11 Creatinine (0.5 - 1.0 mg/dL) 0.6 Estimated GFR (>60 ml/min) > 60 BUN/Creatinine Ratio (7 - 25 %) 18.3 Hematology CBC w Diff NO MAN DIFF REQ WBC (4.8 - 10.8 /CUMM) 2.0 L RBC (4.20 - 5.40 /CUMM) 3.03 L Hgb (12.0 - 16.0 G/DL) 8.4 L Hct (37 - 47 %) 25.5 L MCV (81.0 - 99.0 FL) 84.3 MCH (27.0 - 31.0 PG) 27.7 MCHC (33.0 - 37.0 G/DL) 32.9 L RDW (11.5 - 14.5 %) 16.9 H Plt Count (130 - 400 /CUMM) 76 L MPV (7.4 - 10.4 FL) 8.5 Gran % (42.2 - 75.2 %) 76.9 H Lymphocytes % (20.5 - 51.1 %) 13.7 L Monocytes % (1.7 - 9.3 %) 5.9 Eosinophils % (0 - 5 %) 2.8 Basophils % (0.0 - 2.0 %) 0.7 Absolute Granulocytes (1.4 - 6.5 /CUMM) 1.5 Absolute Lymphocytes (1.2 - 3.4 /CUMM) 0.3 L Absolute Monocytes (0.10 - 0.60 /CUMM) 0.1 Absolute Eosinophils (0.0 - 0.7 /CUMM) 0.1 Absolute Basophils (0.0 - 0.2 /CUMM) 0 Imaging Results: MRI and CT scans reviewed with radiology showing evidence of osteomyelitis with joint effusion at the right sternoclavicular joint and significant soft tissue swelling. Assessment/Plan Assessment/Plan 57-year-old with immunocompromise related to chronic illness and pancytopenia. She has what appears to be a sternoclavicular joint osteomyelitis with septic arthritis. I reviewed the literature and although there is a definite ability to cure this with antibiotics alone the literature favors open debridement with probable or possible eventual flap closure. I discussed the case with both infectious disease and plastic surgery and the preferences for open debridement which will be done tomorrow. This will allow tissue for culture along with histologic evaluation of the bone for osteomyelitis. Risks and objectives were explained to the patient and she understands and agrees. Consult Acknowledgment - Thank you for your consult request.
[2017-11-07 22:40] VITALS: BP 140/80
[2017-11-08 06:09] VITALS: BP 108/82
--- NOTE | 2017-11-08 07:17 | PN- Housestaff ---
Arlin HERCULES,[facility] 11/08/17 0716: Subjective Follow-up For: Osteomyelitis and septic arthritis of right sternoclavicular joint Subjective: Patient seen and examined. Complains of persistent pain in infraclavicular region. Feels anxious about the surgery. Review of Systems Constitutional: Reports: no symptoms. Objective Last 24 Hrs of Vital Signs/I&O Vital Signs Date Time Temp Pulse Resp B/P B/P Pulse O2 O2 Flow FiO2 Mean Ox Delivery Rate 11/08 0609 98.3 80 20 108/82 94 11/07 2240 98.4 90 20 140/80 96 Room Air 11/07 1439 98.6 78 20 124/82 100 Room Air 11/07 0728 98.3 75 18 124/68 95 Intake & Output 11/08 0800 11/08 0000 11/07 1600 Intake Total 960 Output Total Balance 960 Intake, IV 10 Intake, Oral 950 Number 1 0 Bowel Movements Physical Exam General Appearance: Alert, Oriented X3, Cooperative, Mild Distress Skin: No Rashes, No Breakdown Skin Temp/Moisture Exam: Warm/Dry Sepsis Skin Exam (color): Normal for Ethnicity HEENT: Atraumatic Cardiovascular: Normal S1, Normal S2, No Murmurs, tenderness to palpation in infraclavicular region Lungs: Clear to Auscultation, Normal Air Movement Abdomen: Soft, No Tenderness Neurological: Normal Speech Extremities: No Edema Last 24 Hrs of Lab/Kavin Results Last 24 Hrs of Labs/Mics: Laboratory Tests 11/08/17 0635: PT 15.3 H, INR 1.40 H, CBC w Diff NO MAN DIFF REQ, RBC 3.12 L, MCV 84.1, MCH 28.0, MCHC 33.3, RDW 17.4 H, MPV 8.1, Gran % 73.5, Lymphocytes % 17.3 L, Monocytes % 5.7, Eosinophils % 2.6, Basophils % 0.9, Absolute Granulocytes 1.6, Absolute Lymphocytes 0.4 L, Absolute Monocytes 0.1, Absolute Eosinophils 0.1, Absolute Basophils 0 Assessment/Plan Assessment: 57-year-old woman with a history of Crohn's disease, in remission, hepatitis C with cirrhosis and pancytopenia, treated in the past with antiviral therapy, rheumatoid arthritis, with a history of a right rotator cuff tear 3 years prior to admission presented to the ED with a several day history of swelling and discomfort over the right sternoclavicular joint and continued pain in her right shoulder, with no associated fevers or chills. Assessment: 1. Osteomyelitis and Septic Arthritis of right sternoclavicular joint 2. Pancytopenia Plan: * Her aspiration cultures from IR are growing Staph species. * Scheduled for OR today for debridement and for open tissue biopsy. * Will dose with Vancomycin 1g q12 after OR. * MRI showed right sternoclavicular septic arthritis with periarticular osteomyelitis. * blood cultures show no growth so far. * Echocardiogram showed no obvious vegetative lesions. * Diet: Regular * DVT Prophylaxis: ALPS only. Patient has low platelets. * Code: Full Code Problem List: 1. Osteomyelitis Pain Ratin Pain Location: none Pain Goal: Remain pain free Pain Plan: none Tomorrow's Labs & Rationales: CBC, BEP Scotty HERCULES,Francisca 11/08/17 1437: Attending MD Review Statement Attending Statement Attending MD Statement: examined this patient, discuss w/resident/PA/DOCKETING SPECIALIST, agreed w/resident/PA/DOCKETING SPECIALIST, reviewed EMR data (avail), discussed with nursing, discussed with case mgmt, reviewed images, amended to note Attending Assessment/Plan: Patient seen and examined, doing the same. Patient is scheduled to go to or today by Dr. Soto for the debridement off sternoclavicular joint for septic arthritis and osteomyelitis. We'll start the patient on vancomycin as recommended by infectious disease. Continue current pain management. DVT px; ALPS 2/2 to thrombocytopenia.
[2017-11-08 07:53] LABS: ABSOLUTE BASOPHIL COUNT 0 /CUMM (0.0-0.2); ABSOLUTE EOSINOPHIL COUNT 0.1 /CUMM (0.0-0.7); ABSOLUTE GRANULOCYTE CT 1.6 /CUMM (1.4-6.5); ABSOLUTE LYMPH COUNT 0.4 /CUMM (1.2-3.4); ABSOLUTE MONOCYTE COUNT 0.1 /CUMM (0.10-0.60); BASOPHIL % 0.9 % (0.0-2.0); EOSINOPHIL % 2.6 % (0-5); HEMATOCRIT 26.2 % (37-47); MEAN CORPUSCULAR HGB CONC 33.3 G/DL (33.0-37.0); MEAN CORPUSCULAR VOLUME 84.1 FL (81.0-99.0); MEAN PLATELET VOLUME 8.1 FL (7.4-10.4); RBC DISTRIBUTION WIDTH 17.4 % (11.5-14.5); RED BLOOD CELL CT 3.12 /CUMM (4.20-5.40)
[2017-11-08 08:37] LABS: PT 15.3 SEC (9.4-12.5)
[2017-11-08 08:42] LABS: GRANULOCYTE % 73.5 % (42.2-75.2); PLATELET COUNT 82 /CUMM (130-400); WHITE BLOOD CELL COUNT 2.2 /CUMM (4.8-10.8)
--- NOTE | 2017-11-08 10:51 | PN- Infect Dx ---
Subjective Subjective: Afebrile. She complains of pain in the acromioclavicular area. Objective Last 24 Hrs of Vital Signs/I&O Vital Signs Date Time Temp Pulse Resp B/P B/P Pulse O2 O2 Flow FiO2 Mean Ox Delivery Rate 11/08 0609 98.3 80 20 108/82 94 11/07 2240 98.4 90 20 140/80 96 Room Air 11/07 1439 98.6 78 20 124/82 100 Room Air Intake & Output 11/08 1600 11/08 0800 11/08 0000 Intake Total Output Total Balance Number 1 Bowel Movements Physical Exam Other Physical Findings: She appears comfortable in no acute distress Neck tender to palpation over the acromioclavicular area, with minimal swelling over the sternoclavicular area Extremities increased range of motion of the right shoulder Results Last 24 Hours of Lab Results: Laboratory Tests 11/08 0635 Coagulation PT (9.4 - 12.5 SEC) 15.3 H INR (0.90 - 1.19) 1.40 H Hematology CBC w Diff NO MAN DIFF REQ WBC (4.8 - 10.8 /CUMM) 2.2 L RBC (4.20 - 5.40 /CUMM) 3.12 L Hgb (12.0 - 16.0 G/DL) 8.7 L Hct (37 - 47 %) 26.2 L MCV (81.0 - 99.0 FL) 84.1 MCH (27.0 - 31.0 PG) 28.0 MCHC (33.0 - 37.0 G/DL) 33.3 RDW (11.5 - 14.5 %) 17.4 H Plt Count (130 - 400 /CUMM) 82 L MPV (7.4 - 10.4 FL) 8.1 Gran % (42.2 - 75.2 %) 73.5 Lymphocytes % (20.5 - 51.1 %) 17.3 L Monocytes % (1.7 - 9.3 %) 5.7 Eosinophils % (0 - 5 %) 2.6 Basophils % (0.0 - 2.0 %) 0.9 Absolute Granulocytes (1.4 - 6.5 /CUMM) 1.6 Absolute Lymphocytes (1.2 - 3.4 /CUMM) 0.4 L Absolute Monocytes (0.10 - 0.60 /CUMM) 0.1 Absolute Eosinophils (0.0 - 0.7 /CUMM) 0.1 Absolute Basophils (0.0 - 0.2 /CUMM) 0 Last 24 Hours of Kavin Results: Blood cultures 2 November 05 negative Sternoclavicular joint fluid aspirate November 06 positive for scant growth of Staph species Assessment/Plan ID Impression: Stable, with temperatures remaining normal, off antibiotics status post aspiration of the right sternoclavicular joint by IR 2 days ago, with the culture positive for scant growth of Staph species. The significance of this culture is unclear and will await the final identification and OR cultures, as she is scheduled for debridement later today. Her white blood cell count is not a useful parameter as she is pancytopenic secondary to her underlying cirrhosis. Suggestion: 1. Await OR for debridement of the right sternoclavicular joint 2. Follow-up cultures from the recent aspiration and OR 3. Begin Vancomycin 1 g IV every 12 hours after surgery pending above
[2017-11-08 12:35] VITALS: BP 122/60
--- NOTE | 2017-11-08 15:44 | Operative Report ---
Operative/Inv Procedure Report Surgery Date: 11/08/17 Name of Procedure: Debridement sternoclavicular joint, placement wound VAC less than 50 cm Pre-Operative Diagnosis: Infected sternoclavicular joint Post-Operative Diagnosis: Same pathology pending Estimated Blood Loss: scant Surgeon/Electrician Rectifier Maintenance: lane Anesthesia: laryngeal mask airway Operative/Procedure Note Note: Dr. palma on her request and intraoperative consultation regarding an infected sternoclavicular joint. Chart was reviewed images and plan discussed prior to incision. After cells on O had placed a full-thickness skin incision in the area of concern. Further dissection revealed granulation tissue emanating from the sternoclavicular joint.'s were opened and debrided as necessary. Cultures and specimens were taken of the granulation tissue as well as bony debridement primarily from the proximal clavicular head. Ental debridement of the sternum was performed finding no cortical irregularities other than flakes of cartilage. Granulation tissue was removed as necessary pulse lavage irrigation was carried out and a wound VAC was placed.
--- NOTE | 2017-11-08 16:45 | Operative Report ---
Operative/Inv Procedure Report Surgery Date: 11/08/17 Name of Procedure: Incision and drainage right sternoclavicular joint Pre-Operative Diagnosis: Septic arthritis and osteomyelitis right sternoclavicular joint Post-Operative Diagnosis: Same Estimated Blood Loss: less than 50ml Surgeon/Master Sonar Technician: Dr. Charles Ortiz Anesthesia: laryngeal mask airway Operative/Procedure Note Note: After placement of monitoring lines and induction of general anesthesia the patient's upper chest was prepped and draped in a sterile fashion. Incision was made over the clavicle and clavicular head up to the sternoclavicular joint. There was clearly a purulent appearing drainage from the joint. Cultures were sent and at that point Dr. Ortiz took over the procedure for adequate soft tissue resection clearing. He placed a wound VAC. Patient was brought to the recovery room in stable condition.
[2017-11-08 17:09] VITALS: BP 138/82
--- NOTE | 2017-11-08 17:41 | PN- Student ---
Clifton Escalona 11/08/17 1734: Subjective Subjective: POST OP CHECK 02/20 pain right clavicular area. No shortness of breath, no sub sternal chest pain, no calf pain. no nausea, no vomiting. Urinated after surgery, but no bowel movements or flatus. Objective Objective: Physical Exam: General: No acute distress, patient in pain. Pulm: coarse breath sounds Cardio: s1,s2,RRR Abdomen: soft, +bowel sounds, nontender Extremities: DP/PT 2+ pulses bilaterally, calves soft/non tender bilaterally Surgery site: Wound vac is in place with sanguinous drainage. tender around wound. Results Results: Laboratory Tests 11/08/17 0635: PT 15.3 H, INR 1.40 H, CBC w Diff NO MAN DIFF REQ, RBC 3.12 L, MCV 84.1, MCH 28.0, MCHC 33.3, RDW 17.4 H, MPV 8.1, Gran % 73.5, Lymphocytes % 17.3 L, Monocytes % 5.7, Eosinophils % 2.6, Basophils % 0.9, Absolute Granulocytes 1.6, Absolute Lymphocytes 0.4 L, Absolute Monocytes 0.1, Absolute Eosinophils 0.1, Absolute Basophils 0 11/07/17 0703: Anion Gap 7, Estimated GFR > 60, BUN/Creatinine Ratio 18.3, CBC w Diff NO MAN DIFF REQ, RBC 3.03 L, MCV 84.3, MCH 27.7, MCHC 32.9 L, RDW 16.9 H, MPV 8.5, Gran % 76.9 H, Lymphocytes % 13.7 L, Monocytes % 5.9, Eosinophils % 2.8, Basophils % 0.7, Absolute Granulocytes 1.5, Absolute Lymphocytes 0.3 L, Absolute Monocytes 0.1, Absolute Eosinophils 0.1, Absolute Basophils 0 11/06/17 1642: Fluid WBC Cancelled, Fld Total RBCs Counted Cancelled 11/06/17 1050: Urine Opiates Screen 3545.00 H, Methadone Screen < 40, Barbiturate Screen < 60, Ur Phencyclidine Scrn < 6.00, Amphetamines Screen < 100, U Benzodiazepines Scrn < 85, Urine Cocaine Screen < 50, Urine Cannabis Screen < 5.00 11/06/17 1009: Fluid WBC Cancelled, Fld Total RBCs Counted Cancelled 11/06/17 1009: Fluid Glucose Cancelled, Fluid LDH Cancelled 11/06/17 0658: Anion Gap 6, Estimated GFR > 60, BUN/Creatinine Ratio 18.3, Uric Acid 5.0, CBC w Diff NO MAN DIFF REQ, RBC 2.97 L, MCV 83.7, MCH 27.5, MCHC 32.9 L, RDW 17.3 H , MPV 8.6, Gran % 73.3, Lymphocytes % 16.1 L, Monocytes % 7.0, Eosinophils % 3.1, Basophils % 0.5, Absolute Granulocytes 1.3 L, Absolute Lymphocytes 0.3 L, Absolute Monocytes 0.1, Absolute Eosinophils 0.1, Absolute Basophils 0 11/05/17 2340: PT 15.6 H, INR 1.43 H 11/05/17 1829: ESR Westergren 60 H Microbiology 11/08 1502 TRUNK/O.R.: Culture & Sensitivity - RECD 11/08 1502 TRUNK/O.R.: Gram Stain - RECD 11/08 1502 TRUNK/O.R.: Fungal Culture - RECD 11/08 150 TRUNK/O.R.: AFB Culture with PCR Identification - RECD 11/08 150 TRUNK/O.R.: AFB Smear Concentration - RECD 11/08 145 TRUNK/O.R.: Fungal Culture - RECD 11/08 1454 TRUNK/O.R.: Culture & Sensitivity - RECD 11/08 1454 TRUNK/O.R.: Gram Stain - RECD 11/08 1454 TRUNK/O.R.: Culture & Sensitivity - RECD 11/08 1454 TRUNK/O.R.: Gram Stain - RECD 11/08 1454 TRUNK/O.R.: Fungal Culture - RECD 11/08 1454 TRUNK/O.R.: AFB Culture with PCR Identification - RECD 11/08 1454 TRUNK/O.R.: AFB Smear Concentration - RECD 11/08 1454 TRUNK/O.R.: AFB Culture with PCR Identification - RECD 11/08 1454 TRUNK/O.R.: AFB Smear Concentration - RECD 11/06 1641 BODY FLUID: AFB Culture with PCR Identification - CAN Cancelled: QHALLE-DR ELENA NOTIFIED 06/26 1642 BODY FLUID: AFB Smear Concentration - CAN Cancelled: QNS-DR ELENA NOTIFIED 11/06 1642 BODY FLUID: Fungal Culture - RECD 11/06 1600 BODY FLUID: Body Fluid Culture - RES STAPH SPECIES 11/06 1600 BODY FLUID: Gram Stain - RES 11/05 2129 BLOOD: Blood Culture - RES 11/05 1829 BLOOD: Blood Culture - RES Assessment/Plan Assessment: 57 year old female POD 0 s/p right sternal/clavicular debridement with expected post op pain doing well.
[2017-11-08 21:21] VITALS: BP 118/68
[2017-11-09 06:37] VITALS: BP 116/72
--- NOTE | 2017-11-09 07:00 | CT SCAN REPORT ---
EXAMINATION: CT GUIDED ASPIRATION OF THE RIGHT STERNOCLAVICULAR JOINT CLINICAL INFORMATION: 57-year-old cirrhotic patient with a history of recent trauma presenting with painful right sternoclavicular joint. Recent CT showed inflammatory changes surrounding this joint with new erosive changes involving the subchondral cortex of the clavicle and sternum consistent with septic arthrosis. COMPARISON: Chest CTs of 11/05/2017 and 10/11/2017. GROOMING SALON MANAGER: Surendra Aleman M.D. DESCRIPTION: The patient was referred by Dr. You Morris of infectious disease. Informed consent was obtained from the patient prior to the procedure. During this process, the procedure and potential alternatives was explained, along with the intended outcome and benefits. The risks of the procedure, as well as the risk of not doing the procedure, were discussed. The patient was given the opportunity to ask questions regarding the procedure and appeared competent to make medical decisions. A signed consent form which documents this discussion was placed in the medical record. Review was made of the patient's prior imaging studies. Patient was brought to CT suite and a final timeout procedure was performed. The patient was placed in the CT gantry in the supine position. Radio Operator Ground films were obtained through the upper chest with a grid device in place for localization of the right sternoclavicular joint. Inflammatory changes are seen in the subcutaneous tissues around this joint with distention of the joint capsule. The overlying soft tissues were sterilely prepped and draped. Maximum sterile barrier technique was maintained throughout the procedure. Following administration of local anesthesia using 1% lidocaine, an 18-gauge needle was introduced into the right sternoclavicular joint under CT fluoroscopic guidance. Approximately 3 mL's of bloody fluid was aspirated from the joint and sent to laboratory for culture and sensitivity. The patient tolerated the procedure well. There was no evidence of complications. DLP: 130.8 mGy-cm IMPRESSION: CT-guided aspiration performed of the right sternoclavicular joint without evidence of complications.
--- NOTE | 2017-11-09 07:17 | PN- Housestaff ---
Arlin HERCULES,[facility] 11/09/17 0716: Subjective Follow-up For: Osteomyelitis and septic arthritis of sternoclavicular joint Subjective: Patient seen and examined. Reports of significant chest pain. States the morphine helps but only temporarily. Review of Systems Constitutional: Reports: no symptoms. Objective Last 24 Hrs of Vital Signs/I&O Vital Signs Date Time Temp Pulse Resp B/P B/P Pulse O2 O2 Flow FiO2 Mean Ox Delivery Rate 11/09 0637 98.3 75 18 116/72 94 11/08 2121 97.9 81 18 118/68 98 Room Air 11/09 2011 98 Room Air 11/08 1709 Nasal 2.0L Cannula 11/08 1709 97.9 79 18 138/82 99 Nasal 2.0L Cannula 11/08 1235 98.4 78 18 122/60 99 Room Air Intake & Output 11/09 0800 11/09 0000 11/08 1600 Intake Total 370 1050 600 Output Total 600 550 Balance 370 450 50 Intake, IV 250 250 600 Intake, Oral 120 800 0 Number 0 Bowel Movements Output, Urine 600 550 Physical Exam General Appearance: Alert, Oriented X3, Cooperative, Mild Distress Skin: No Rashes, No Breakdown Skin Temp/Moisture Exam: Warm/Dry Sepsis Skin Exam (color): Normal for Ethnicity Cardiovascular: Normal S1, Normal S2, No Murmurs, wound vac in place Lungs: Clear to Auscultation, Normal Air Movement Abdomen: Soft, No Tenderness Neurological: Normal Speech Extremities: No Edema Last 24 Hrs of Lab/Kavin Results Last 24 Hrs of Labs/Mics: Laboratory Tests 11/09/17 0557: Anion Gap 9, Estimated GFR > 60, BUN/Creatinine Ratio 15.7, CBC w Diff NO MAN DIFF REQ, RBC 2.98 L, MCV 84.5, MCH 27.7, MCHC 32.8 L, RDW 17.8 H, MPV 8.5, Gran % 78.0 H, Lymphocytes % 12.3 L, Monocytes % 6.9, Eosinophils % 2.2, Basophils % 0.6, Absolute Granulocytes 1.8, Absolute Lymphocytes 0.3 L, Absolute Monocytes 0.2, Absolute Eosinophils 0.1, Absolute Basophils 0 Microbiology 11/08 1503 TRUNK/O.R.: Culture & Sensitivity - RES 11/08 1503 TRUNK/O.R.: Gram Stain - RES 11/08 1503 TRUNK/O.R.: Fungal Culture - RECD 11/08 1503 TRUNK/O.R.: AFB Culture with PCR Identification - RECD 11/08 1503 TRUNK/O.R.: AFB Smear Concentration - RECD 11/08 1455 TRUNK/O.R.: Fungal Culture - RECD 11/08 1455 TRUNK/O.R.: Culture & Sensitivity - RES 11/08 145 TRUNK/O.R.: Gram Stain - RES 11/08 145 TRUNK/O.R.: Culture & Sensitivity - RES 11/08 145 TRUNK/O.R.: Gram Stain - RES 11/08 145 TRUNK/O.R.: Fungal Culture - RECD 11/08 1455 TRUNK/O.R.: AFB Culture with PCR Identification - RECD 11/08 145 TRUNK/O.R.: AFB Smear Concentration - RECD 11/08 145 TRUNK/O.R.: AFB Culture with PCR Identification - RECD 11/08 145 TRUNK/O.R.: AFB Smear Concentration - RECD Assessment/Plan Assessment: 57-year-old woman with a history of Crohn's disease, in remission, hepatitis C with cirrhosis and pancytopenia, treated in the past with antiviral therapy, rheumatoid arthritis, with a history of a right rotator cuff tear 3 years prior to admission presented to the ED with a several day history of swelling and discomfort over the right sternoclavicular joint and continued pain in her right shoulder, with no associated fevers or chills. Assessment: 1. Osteomyelitis and Septic Arthritis of right sternoclavicular joint 2. Pancytopenia Plan: * Her aspiration cultures from IR are growing Staph species. * OR cultures show no growth so far. * Continue IV Vancomycin 1g q12. * MRI showed right sternoclavicular septic arthritis with periarticular osteomyelitis. * She has a wound vac which will stay in for now. * Pain control with oxycodone. Morphine for breakthrough pain. * Echocardiogram showed no obvious vegetative lesions. * Diet: Regular * DVT Prophylaxis: ALPS only. Patient has low platelets. * Code: Full Code Problem List: 1. Osteomyelitis Pain Ratin Pain Location: none Pain Goal: Remain pain free Pain Plan: none Tomorrow's Labs & Rationales: JENNIFER Fajardo MD,Francisca 11/09/17 1351: Attending MD Review Statement Attending Statement Attending MD Statement: examined this patient, discuss w/resident/PA/ATTORNEY LAW CLERK, agreed w/resident/PA/ATTORNEY LAW CLERK, reviewed EMR data (avail), discussed with nursing, discussed with case mgmt, reviewed images, amended to note Attending Assessment/Plan: Patient seen and examined, c/o lot of pain in the chest. S/P Incision and drainage right sternoclavicular joint and Debridement sternoclavicular joint, placement of wound VAC POD #1 today. Vital Signs Date Time Temp Pulse Resp B/P B/P Pulse O2 O2 Flow FiO2 Mean Ox Delivery Rate 11/09 0637 98.3 75 18 116/72 94 11/08 2121 97.9 81 18 118/68 98 Room Air 11/09 2011 98 Room Air 11/08 1709 Nasal 2.0L Cannula 11/08 170 97.9 79 18 138/82 99 Nasal 2.0L Cannula on exam; aox3, nad. cv; s1,s2, rrr resp; clear abd; soft, nt, bs+ ext; no edema skin: + wound vac on chest. Laboratory Tests 11/09 0557 Chemistry Sodium (137 - 145 mmol/L) 142 Potassium (3.5 - 5.1 mmol/L) 3.5 Chloride (98 - 107 mmol/L) 107 Carbon Dioxide (22 - 30 mmol/L) 26 Anion Gap (5 - 16) 9 BUN (7 - 17 mg/dL) 11 Creatinine (0.5 - 1.0 mg/dL) 0.7 Estimated GFR (>60 ml/min) > 60 BUN/Creatinine Ratio (7 - 25 %) 15.7 Hematology CBC w Diff NO MAN DIFF REQ WBC (4.8 - 10.8 /CUMM) 2.3 L RBC (4.20 - 5.40 /CUMM) 2.98 L Hgb (12.0 - 16.0 G/DL) 8.3 L Hct (37 - 47 %) 25.2 L MCV (81.0 - 99.0 FL) 84.5 MCH (27.0 - 31.0 PG) 27.7 MCHC (33.0 - 37.0 G/DL) 32.8 L RDW (11.5 - 14.5 %) 17.8 H Plt Count (130 - 400 /CUMM) 73 L MPV (7.4 - 10.4 FL) 8.5 Gran % (42.2 - 75.2 %) 78.0 H Lymphocytes % (20.5 - 51.1 %) 12.3 L Monocytes % (1.7 - 9.3 %) 6.9 Eosinophils % (0 - 5 %) 2.2 Basophils % (0.0 - 2.0 %) 0.6 Absolute Granulocytes (1.4 - 6.5 /CUMM) 1.8 Absolute Lymphocytes (1.2 - 3.4 /CUMM) 0.3 L Absolute Monocytes (0.10 - 0.60 /CUMM) 0.2 Absolute Eosinophils (0.0 - 0.7 /CUMM) 0.1 Absolute Basophils (0.0 - 0.2 /CUMM) 0 A/P: 57 y/o F with pmh sig for hepatitis C treated with Harvoni, cirrhosis, Crohn's disease status post large and small bowel resections, GERD, rheumatoid arthritis, anxiety, depression, carpal tunnel syndrome status post bilateral surgery admitted with right sided chest swelling/erythema and tenderness and found to have right sternoclavicular joint septic arthritis/osteomyelitis. S/P Incision and drainage right sternoclavicular joint and Debridement sternoclavicular joint, placement of wound VAC POD #1 today. patient currently on Oxycodone and morphine for pain mx. Continue Vanco and follow up OR cx. D/W Dr. Soto, wound vac will likely stay on for sometime. DVT px; ALPS.
[2017-11-09 08:15] LABS: ABSOLUTE BASOPHIL COUNT 0 /CUMM (0.0-0.2); ABSOLUTE EOSINOPHIL COUNT 0.1 /CUMM (0.0-0.7); ABSOLUTE GRANULOCYTE CT 1.8 /CUMM (1.4-6.5); ABSOLUTE LYMPH COUNT 0.3 /CUMM (1.2-3.4); ABSOLUTE MONOCYTE COUNT 0.2 /CUMM (0.10-0.60); BASOPHIL % 0.6 % (0.0-2.0); EOSINOPHIL % 2.2 % (0-5); HEMATOCRIT 25.2 % (37-47); MEAN CORPUSCULAR HGB 27.7 PG (27.0-31.0); MEAN CORPUSCULAR HGB CONC 32.8 G/DL (33.0-37.0); MEAN CORPUSCULAR VOLUME 84.5 FL (81.0-99.0); MEAN PLATELET VOLUME 8.5 FL (7.4-10.4); RBC DISTRIBUTION WIDTH 17.8 % (11.5-14.5); RED BLOOD CELL CT 2.98 /CUMM (4.20-5.40); WHITE BLOOD CELL COUNT 2.3 /CUMM (4.8-10.8)
--- NOTE | 2017-11-09 09:12 | PN- Thoracic Surgery ---
Subjective Subjective: Patient reports postop pain is uncontrolled. She reports relief with Morphine, but only lasts for 3 hours. She denies chest pain and sob. She denies using her incentive spirometry seconday to pain. Objective Vital Signs and I&Os Vital Signs Date Time Temp Pulse Resp B/P B/P Pulse O2 O2 Flow FiO2 Mean Ox Delivery Rate 11/09 0637 98.3 75 18 116/72 94 11/08 2121 97.9 81 18 118/68 98 Room Air 11/09 2011 98 Room Air 11/08 1709 Nasal 2.0L Cannula 11/08 1709 97.9 79 18 138/82 99 Nasal 2.0L Cannula 11/08 1235 98.4 78 18 122/60 99 Room Air Intake & Output 11/09 1600 11/09 0800 11/09 0000 11/08 1600 11/08 0800 11/08 0000 Intake Total 370 1050 600 Output Total 600 550 Balance 370 450 50 Intake, IV 250 250 600 Intake, Oral 120 800 0 Number 0 1 Bowel Movements Output, Urine 600 550 Physical Exam: Gen - nad Lungs - fair inspiratory effort, diminished at bases Chest - anterior chest with wound vac in place to suction draining sanguineous drainage, appropriately tender ashish-incisionally Current Medications: Current Medications Sig/Juli Start time Last Medication Dose Route Stop Time Status Admin Acetaminophen 1,000 MG .STK-MED ONE 11/08 1402 DC IV 11/08 1403 Acetaminophen 650 MG Q8P PRN 11/05 2315 AC PO Dextrose/Sodium 1,000 ML Q13H 11/08 0600 DC 11/08 Chloride IV 0546 Fentanyl Citrate 250 MCG .STK-MED ONE 11/08 1402 DC IM 11/08 1403 Hydromorphone HCl 2 MG .STK-MED ONE 11/08 1623 DC IM 11/08 1624 Hydromorphone HCl 2 MG .STK-MED ONE 11/08 1558 DC IM 11/08 1559 Hydromorphone HCl 2 MG .STK-MED ONE 11/08 1543 DC IM 11/08 1544 Hydromorphone HCl 2 MG .STK-MED ONE 11/08 1402 DC IM 11/08 1403 Ibuprofen 600 MG Q8P PRN 11/05 2315 AC 11/06 PO 1757 Midazolam HCl 2 MG .STK-MED ONE 11/08 1402 DC IM 11/08 1403 Morphine Sulfate 2 MG Q4P PRN 11/08 2355 AC 11/09 IV 0747 Morphine Sulfate 2 MG Q6 11/08 1800 DC 11/08 IV 2335 Morphine Sulfate 2 MG ONCE ONE 11/08 1800 DC 11/08 IV 11/08 1801 1750 Morphine Sulfate 1 MG Q8P PRN 11/05 2315 DC 11/08 IV 1232 Omeprazole 40 MG DAILY AC 11/06 0700 AC 11/09 PO 0519 Patient Medication 1 ED ONE ONE 11/08 1645 DC 11/08 Teaching ED 11/08 1646 1750 Vancomycin HCl 1,000 MG 0500,1700 11/08 1700 AC 11/09 Sodium Chloride 250 ML IV 0407 Assessment/Plan Assessment/Plan 57 F POD 1 s/p I&D with debridement of right sternoclavicular joint secondary to septic arthritis and osteomyelitis with woundvac placement inadequate pain control Wound vac c/s, Teressa ORDOÑEZ called Pain regimen - recommend oxycodone for pain control and IV morphine for breakthrough Cont IV abx per ID - Vanco F/u OR cultures and tailor abx accordingly Encourage IS Will d/w Dr. Soto
[2017-11-09 10:18] LABS: PLATELET COUNT 73 /CUMM (130-400)
--- NOTE | 2017-11-09 11:33 | PN- Infect Dx ---
Subjective Subjective: Afebrile. She complains of pain in the right clavicle at the site of her recent surgery. Objective Last 24 Hrs of Vital Signs/I&O Vital Signs Date Time Temp Pulse Resp B/P B/P Pulse O2 O2 Flow FiO2 Mean Ox Delivery Rate 11/09 0637 98.3 75 18 116/72 94 11/08 2121 97.9 81 18 118/68 98 Room Air 11/09 2011 98 Room Air 11/08 1709 Nasal 2.0L Cannula 11/08 1709 97.9 79 18 138/82 99 Nasal 2.0L Cannula 11/08 1235 98.4 78 18 122/60 99 Room Air Intake & Output 11/09 1600 11/09 0800 11/09 0000 Intake Total 370 1050 Output Total 600 Balance 370 450 Intake, IV 250 250 Intake, Oral 120 800 Output, Urine 600 Physical Exam Other Physical Findings: She appears mildly uncomfortable but in no acute distress Neck wound VAC in place over the right clavicle, tender to palpation Extremities decreased range of motion of the right shoulder Results Last 24 Hours of Lab Results: Laboratory Tests 11/09 0557 Chemistry Sodium (137 - 145 mmol/L) 142 Potassium (3.5 - 5.1 mmol/L) 3.5 Chloride (98 - 107 mmol/L) 107 Carbon Dioxide (22 - 30 mmol/L) 26 Anion Gap (5 - 16) 9 BUN (7 - 17 mg/dL) 11 Creatinine (0.5 - 1.0 mg/dL) 0.7 Estimated GFR (>60 ml/min) > 60 BUN/Creatinine Ratio (7 - 25 %) 15.7 Hematology CBC w Diff NO MAN DIFF REQ WBC (4.8 - 10.8 /CUMM) 2.3 L RBC (4.20 - 5.40 /CUMM) 2.98 L Hgb (12.0 - 16.0 G/DL) 8.3 L Hct (37 - 47 %) 25.2 L MCV (81.0 - 99.0 FL) 84.5 MCH (27.0 - 31.0 PG) 27.7 MCHC (33.0 - 37.0 G/DL) 32.8 L RDW (11.5 - 14.5 %) 17.8 H Plt Count (130 - 400 /CUMM) 73 L MPV (7.4 - 10.4 FL) 8.5 Gran % (42.2 - 75.2 %) 78.0 H Lymphocytes % (20.5 - 51.1 %) 12.3 L Monocytes % (1.7 - 9.3 %) 6.9 Eosinophils % (0 - 5 %) 2.2 Basophils % (0.0 - 2.0 %) 0.6 Absolute Granulocytes (1.4 - 6.5 /CUMM) 1.8 Absolute Lymphocytes (1.2 - 3.4 /CUMM) 0.3 L Absolute Monocytes (0.10 - 0.60 /CUMM) 0.2 Absolute Eosinophils (0.0 - 0.7 /CUMM) 0.1 Absolute Basophils (0.0 - 0.2 /CUMM) 0 Last 24 Hours of Kavin Results: Aspiration of the right sternoclavicular joint November 06 by IR positive for coag negative Staph, with the ID and sensitivities pending OR cultures of the right chest November 08 labeled "bone" and "tissue" negative, with the gram stain of the specimen labeled "tissue" revealing rare white blood cells and rare gram-positive cocci; AFB and fungal cultures pending Blood cultures November 05 negative Assessment/Plan ID Impression: Stable, with temperatures remaining normal, on Vancomycin for coag negative Staph isolated from the aspiration of the right sternoclavicular joint performed 3 days ago, status post I&D of the right sternoclavicular joint yesterday, with the OR cultures so far negative. The gram stain of one OR specimen does reveal rare gram-positive cocci and will await the final cultures. Of note her white blood cell count is not a useful parameter as she is pancytopenic secondary to underlying cirrhosis. Suggestion: 1. Follow-up final OR and IR cultures 2. Continue Vancomycin pending above
[2017-11-09 14:51] VITALS: BP 120/66
--- NOTE | 2017-11-09 14:51 | Discharge Summary ---
Visit Information Visit Dates Admission Date: 11/05/17 Discharge Date: 11/16/17 Hospital Course Course Attending Physician: Leo Muhammad MD Primary Care Physician: Sobia Holguin APRN [facility] Course: Ms Sevilla is a 57-year-old woman with a history of Crohn's disease, in remission, hepatitis C with cirrhosis and pancytopenia, treated in the past with antiviral therapy, rheumatoid arthritis, with a history of a right rotator cuff tear 3 years prior to admission presented to [place] ED with a several day history of swelling and discomfort over the right sternoclavicular joint and continued pain in her right shoulder, with no associated fevers or chills. She was seen and treated for: Osteomyelitis and Septic Arthritis of right sternoclavicular joint: Imaging on admission showed findings concerning for septic arthritis with osteomyelitis. Further evaluation with MRI showed right sternoclavicular septic arthritis with periarticular osteomyelitis at the clavicular head and sternum. She initially underwent a CT guided aspiration of right sternoclavicular joint on 11/06. Cultures were obtained which showed coag negative Staph epidermidis for which she was started on IV Vancomycin initially which was later changed based on her cultures. She was subsequently taken to the OR on 11/08 for I&D of sternoclavicular joint with placement wound VAC. The gram stain of one OR specimen did reveal rare gram-positive cocci, but this is of unclear significance. Her pathology was positive for osteomyelitis; therefore she will need to be continued on antibiotics for 4-6 weeks (from her recent surgery). A PICC line was thus placed for this purpose. She will need to be continued on Ceftriaxone to complete a 6 week course of treatment from her surgery (until December 20). A wound vac was left in place on which she was discharged on. She should follow up with her Plastic surgeon and CT surgeon as outpatient. She was discharged in stable disposition. Allergies: Coded Allergies: pollen extracts (Mild, STUFFY NOSE 11/25/16) Significant Procedures: SERVICE DATE: 11/12/17-1321 EXAM TYPE: RAD - XRY-PORTABLE CHEST XRAY FINDINGS: The tip of the left arm peripherally inserted catheter is located in the distal superior vena cava. Lungs are symmetrically expanded and clear. No pulmonary edema, consolidation or pleural effusion. Cardiac silhouette is normal in size. The hilar contours are normal. The visualized bones are intact. Note that the right sternoclavicular joint is not optimally evaluated on this portable chest radiograph. IMPRESSION: 1. No acute pulmonary disease. 2. The tip of the left arm peripherally inserted catheter is well-positioned within the distal superior vena cava. SERVICE DATE: 11/07/17 EXAM TYPE: MRI - MRI-RT SHOULDER W/O & W ONIEL FINDINGS: The right sternoclavicular joint space is expanded with synovitis and effusion. The surrounding soft tissues are edematous and enhancing. Periarticular edema signal, enhancement, and low T1 signal are present at the clavicular head and adjacent manubrium, consistent with septic arthritis and adjacent osteomyelitis. Subtle erosive changes are present at the manubrium and inferior margin of the clavicular head. The left sternoclavicular joint is more normal in appearance with mild osteoarthritis. No significant synovitis. There is mild edema signal and enhancement within the distal margin of the right 1st rib without convincing evidence of osteomyelitis. Edema signal and enhancement are present within the overlying sternal head of the pectoralis major muscle, reactive to the septic arthritis. As seen on images 10 and 11 of series 17, small loculations of fluid escape from the anterior joint capsule into the pectoralis major muscle, likely either small abscesses or synovial outpouchings of the joint. Edema signal and enhancement are also present within the distal margin of the right sternocleidomastoid muscle. Incidental note is made of enlarged lymph nodes in the upper mediastinum in the upper paratracheal region, measuring up to 1.2 cm in short axis, likely reactive. Imaged portion of the mediastinum is otherwise unremarkable. IMPRESSION: 1. 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 2. Reactive mediastinal adenopathy. SERVICE DATE: 11/05/17 EXAM TYPE: CARD - ECHOCARDIOGRAM FINDINGS Left Ventricle Normal size left ventricle. No obvious regional wall motion abnormalities. Normal left ventricular ejection fraction estimated at 65-70%. Right Ventricle Right ventricle not well visualized, grossly normal. Right Atrium Normal right atrial size. Left Atrium Mild left atrial dilatation. Mitral Valve Mitral valve thickened. Trace mitral regurgitation. Aortic Valve Trileaflet aortic valve. Focal thickening of the aortic valve cusps. No aortic stenosis. No aortic regurgitation. Tricuspid Valve Tricuspid valve not well visualized, grossly normal. Trace tricuspid regurgitation. Pulmonic Valve Structurally normal pulmonic valve. Trace pulmonic regurgitation. Pericardium No pericardial effusion. Great Vessels Aortic root and proximal ascending aorta not well visualized, grossly normal. CONCLUSIONS 1. This was a technically difficult examination. 2. Minimal aortic sclerosis is present with no valvular stenosis or insufficiency. 3. Mitral leaflet thickening is present with redundant chordal structures and chordal BENNIE with no valvular prolapse and no LVOT obstruction at rest. Minimal mitral insufficiency is present with mild left atrial enlargement. 4. There is no pericardial fluid detected. 5. The left ventricular chamber size and systolic function appear normal. 6. Minimal tricuspid and pulmonic insufficiency are present with no evidence of pulmonary hypertension. 7. There are no obvious vegetative lesions detected on this examination. SERVICE DATE: 11/05/17 EXAM TYPE: CAT - CT CHEST W IV CONTRAST FINDINGS: LUNGS: The central airways are patent. No dense consolidation. Unchanged appearance of the left lower lobe 0.4 cm nodule, series 3 image 32. No pneumothorax. MEDIASTINUM: The heart is normal in size. Coronary artery calcifications are present. No pericardial effusion. No mediastinal lymphadenopathy. PLEURA: There is no pleural effusion. No pleural mass or thickening. AXILLA/CHEST WALL: No lymphadenopathy. There is mild asymmetric prominence of the right pectoralis musculature/soft tissues along the anterior margin of the right sternoclavicular joint. This is a new finding when compared to the prior CT from 10/11/2017. There is no mass in the immediate subcutaneous tissues. UPPER ABDOMEN: Splenomegaly. OSSEOUS STRUCTURES: There is subtle irregularity of the medial head of the right clavicle as well as the manubrium in the region of the increased soft tissue density. This is a change from the prior study and suggestive of early erosion. IMPRESSION: There is a new finding of increased soft tissue density anterior to the right sternoclavicular joint with subtle erosive appearance of the head of the right clavicle as well as the adjacent manubrium. These findings raise concern for septic arthritis with osteomyelitis. Soft tissue density could represent an early inflammatory changes in this region. MRI may be useful to better evaluate. Disposition Summary Disposition Principal Diagnosis: Osteomyelitis and Septic Arthritis of right sternoclavicular joint Additional Diagnosis: Crohn's disease hepatitis C with cirrhosis and pancytopenia, Discharge Disposition: home health services Discharge Instructions General Discharge Information Code Status: Full Code Patient's Diet: Regular Patient's Activity: As tolerated Follow-Up Instructions/Appts: Please follow up with your PCP and CT surgeon within one week of discharge. Please get the ceftriaxone daily from the infusion center. Medications at Discharge Discharge Medications: Continue taking these medications: Dexlansoprazole (Dexilant) 60 MG LAUQITA. 1 Capsule ORAL DAILY Qty = 30 Comments: PER PT Last Taken: 11/16/17 Time: 6:00 AM Ranitidine HCl (Ranitidine HCl) 300 MG TABLET 1 Tablet ORAL TWICE DAILY Qty = 60 Comments: NOT GIVEN IN HOSPITAL Cyanocobalamin (Vitamin B-12) 1,000 MCG TABLET 1 Tablet ORAL DAILY Qty = 30 Comments: NOT GIVEN IN HOSPITAL Start taking the following new medications: Ceftriaxone Sodium (Ceftriaxone) 1 GRAM VIAL 2,000 Milligram INTRAVEN DAILY Qty = 36 No Refills Instructions: . Comments: Last Taken: 11/16/17 Time: 10:30 AM Oxycodone HCl (Oxycodone HCl) 10 MG TABLET 10 Milligram ORAL EVERY 6 HOURS NEEDED as needed for Severe Pain Qty = 15 No Refills Instructions: . Comments: Last Taken: 11/16/17 Time: 3:00 PM Copies To: Sobia Holguin APRN Attending MD Review Statement Documenting Attending: Sabas Muhammad MD Other Findings: The patient was seen and discharged as above. Agree with plan of care as outlined. Continue IV antibiotics until 12/20/17- follow up with surgery, PCP, ? ID.
--- NOTE | 2017-11-09 15:14 | PN- Plastic Surgery ---
Subjective Subjective: PT FEELS WELL Review of Systems: NO C/O Objective Vital Signs and I&Os Vital Signs Date Time Temp Pulse Resp B/P B/P Pulse O2 O2 Flow FiO2 Mean Ox Delivery Rate 11/09 1451 98.3 89 20 120/66 97 Room Air 11/09 0637 98.3 75 18 116/72 94 11/08 2121 97.9 81 18 118/68 98 Room Air 11/09 2011 98 Room Air 11/08 1709 Nasal 2.0L Cannula 11/08 170 97.9 79 18 138/82 99 Nasal 2.0L Cannula Intake & Output 11/09 1600 11/09 0800 11/09 0000 11/08 1600 11/08 0800 11/08 0000 Intake Total 863 317 8836 600 Output Total 600 550 Balance 840 370 450 50 Intake, IV 250 250 600 Intake, Oral 840 120 800 0 Number 0 1 Bowel Movements Output, Urine 600 550 Physical Exam: VAC IN PLACE Assessment/Plan Assessment/Plan s/p debridement Right SC joint. Cultures pending. Home with VAC, black foam, 125mmHg. M, W, F. Follow up office [address] Juárez. Core Measures Venous Thromboembolism VTE Risk Factors Age>40 No Mechanical VTE Prophylaxis d/t N/A MechProphylax Ordered No VTE Pharm Prophylaxis d/t NA PharmProphylax ordered
--- NOTE | 2017-11-09 17:56 | Patient Discharge Instructions ---
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 Please get the ceftriaxone daily from the infusion center. Diet Continue normal diet: Yes Activity Full Activity/No Limits: Yes Acute Coronary Syndrome Inclusion Criteria At DC or during hospital stay patient has or had the following: ACS DIAGNOSIS No Discharge Core Measures Meds if any: Prescribed or Continued at Discharge Meds if any: NOT Prescribed or Continued at Discharge Congestive Heart Failure Inclusion Criteria At DC or during hospital stay patient has or had the following: CHF DIAGNOSIS No Discharge Core Measures Meds if any: Prescribed or Continued at Discharge Meds if any: NOT Prescribed or Continued at Discharge Cerebrovascular accident Inclusion Criteria At DC or during hospital stay patient has or had the following: CVA/TIA Diagnosis No Discharge Core Measures Meds if any: Prescribed or Continued at Discharge Meds if any: NOT Prescribed or Continued at Discharge Venous thromboembolism Inclusion Criteria VTE Diagnosis No VTE Type NONE VTE Confirmed by (Test) NONE Discharge Core Measures - Per Current guidelines, there needs to be overlap - treatment for the first 5 days of Warfarin therapy. - If discharged on Warfarin prior to 5 days of - overlap therapy, the patient will need to be - assessed for post discharge needs including - *Post discharge parental anticoagulation - *Warfarin and/or parental anticoagulation education - *Follow up date to check INR post discharge At least 5 days overlap therapy as Inpatient No Meds if any: Prescribed or Continued at Discharge Note: Overlap Therapy is Warfarin and Anticoagulant Meds if any: NOT Prescribed or Continued at Discharge
[2017-11-09 21:25] VITALS: BP 122/64
--- NOTE | 2017-11-10 06:15 | PN- Housestaff ---
See Addendum Subjective Follow-up For: Osteomyelitis of the right sternoclavicular joint Subjective: No overnight events. Patient slept well and feels OK this morning. Review of Systems Constitutional: Reports: no symptoms. EENTM: Reports: no symptoms. Cardiovascular: Reports: no symptoms. Respiratory: Reports: no symptoms. Gastrointestinal: Reports: no symptoms. Genitourinary: Reports: no symptoms. Musculoskeletal: Reports: no symptoms. Skin: Reports: no symptoms. Neurological/Psychological: Reports: no symptoms. Hematologic/Endocrine: Reports: no symptoms. Immunologic/Allergic: Reports: no symptoms. Objective Last 24 Hrs of Vital Signs/I&O Vital Signs Date Time Temp Pulse Resp B/P B/P Pulse O2 O2 Flow FiO2 Mean Ox Delivery Rate 11/09 2124 98.5 85 18 122/64 96 11/09 1451 98.3 89 20 120/66 97 Room Air 11/09 0637 98.3 75 18 116/72 94 Intake & Output 11/10 0800 11/10 0000 11/09 1600 Intake Total 770 540 840 Output Total 5 Balance 765 540 840 Intake, IV 290 300 Intake, Oral 480 240 840 Number 0 0 Bowel Movements Output, 5 Drainage Physical Exam General Appearance: Alert, Oriented X3, Cooperative, No Acute Distress Cardiovascular: Regular Rate, Normal S1, Normal S2, WOUND VAC IN PLACE, NO SURROUNDING ERYTHEMA Lungs: Clear to Auscultation Extremities: No Edema Current Medications: Current Medications Sig/Juli Start time Last Medication Dose Route Stop Time Status Admin Acetaminophen 650 MG Q8P PRN 11/05 2315 AC PO Ibuprofen 600 MG Q8P PRN 11/05 2315 AC 11/06 PO 1757 Melatonin 5 MG AT BEDTIME 11/09 2100 AC 11/09 PO 2114 Morphine Sulfate 2 MG Q3 PRN 11/09 0909 AC 11/09 IV 2217 Morphine Sulfate 2 MG Q4P PRN 11/08 2355 DC 11/09 IV 0747 Omeprazole 40 MG DAILY AC 11/06 0700 AC 11/10 PO 0543 Oxycodone HCl 5 MG Q4-6 PRN PRN 11/09 0915 AC 11/09 PO 1638 Oxycodone HCl 10 MG Q4-6 PRN PRN 11/09 0915 AC 11/10 PO 0449 Vancomycin HCl 1,000 MG 0500,1700 11/08 1700 AC 11/10 Sodium Chloride 250 ML IV 0449 Assessment/Plan Assessment: 57-year-old woman with a history of Crohn's disease, in remission, hepatitis C with cirrhosis and pancytopenia, treated in the past with antiviral therapy, rheumatoid arthritis, with a history of a right rotator cuff tear 3 years prior to admission presented to the ED with a several day history of swelling and discomfort over the right sternoclavicular joint and continued pain in her right shoulder, with no associated fevers or chills. Assessment: 1. Osteomyelitis vs Septic Arthritis of Right Shoulder 2. Pancytopenia Plan: Continue vancomycin Orthopedic and CT surgery consult regarding her right shoulder. Follow up blood cultures and infectious disease recommendations Follow up fluid cultures. Echocardiogram to evaluate for possible endocarditis. Diet: Regular DVT Prophylaxis: ALPS only. Patient has low platelets secondary to cirrhosis Code: Full Code Problem List: 1. Osteomyelitis Pain Ratin Pain Location: NO Pain Goal: Remain pain free Pain Plan: SEE A/P Tomorrow's Labs & Rationales: CBC
[2017-11-10 06:21] VITALS: BP 114/68
[2017-11-10 09:02] LABS: ABSOLUTE BASOPHIL COUNT 0 /CUMM (0.0-0.2); ABSOLUTE EOSINOPHIL COUNT 0 /CUMM (0.0-0.7); ABSOLUTE GRANULOCYTE CT 1.2 /CUMM (1.4-6.5); ABSOLUTE LYMPH COUNT 0.3 /CUMM (1.2-3.4); ABSOLUTE MONOCYTE COUNT 0.1 /CUMM (0.10-0.60); BASOPHIL % 0.8 % (0.0-2.0); EOSINOPHIL % 2.8 % (0-5); GRANULOCYTE % 70.5 % (42.2-75.2); MEAN CORPUSCULAR HGB 27.4 PG (27.0-31.0); MEAN CORPUSCULAR HGB CONC 32.6 G/DL (33.0-37.0); MEAN CORPUSCULAR VOLUME 83.9 FL (81.0-99.0); MEAN PLATELET VOLUME 8.4 FL (7.4-10.4); RBC DISTRIBUTION WIDTH 17.6 % (11.5-14.5); RED BLOOD CELL CT 2.98 /CUMM (4.20-5.40); WHITE BLOOD CELL COUNT 1.7 /CUMM (4.8-10.8)
[2017-11-10 11:39] LABS: PLATELET COUNT 65 /CUMM (130-400)
--- NOTE | 2017-11-10 13:05 | PN- Infect Dx ---
Subjective Subjective: This patient is a 57-year-old woman with a multiple medical problems status post a steroid injection in her right shoulder 4 days prior to admission by Orthopedics, admitted on November 05 after presenting to the emergency room with a several day history of swelling and discomfort over the right sternoclavicular joint and continued pain in her right shoulder, with no associated fevers or chills. CT of the chest revealed increased soft tissue density anterior to the right sternoclavicular joint with a subtle erosive appearance of the head of the right clavicle and the adjacent manubrium. On November 08 she underwent incision and drainage of the right sternoclavicular joint. Today she feels that her pain is better controlled. She is afebrile and has a persistently low white blood cell count. Only one culture is positive for staph species. Review of Systems Comments: 12 point review of system no other significant findings. Objective Last 24 Hrs of Vital Signs/I&O Vital Signs Date Time Temp Pulse Resp B/P B/P Pulse O2 O2 Flow FiO2 Mean Ox Delivery Rate 11/10 620 97.9 75 20 114/68 97 Room Air 11/09 2125 98.5 85 18 122/64 96 11/09 1451 98.3 89 20 120/66 97 Room Air Intake & Output 11/10 1600 11/10 0800 11/10 0000 Intake Total 770 540 Output Total 5 Balance 765 540 Intake, IV 290 300 Intake, Oral 480 240 Number 0 0 Bowel Movements Output, 5 Drainage Physical Exam Other Physical Findings: Awake alert oriented 3 Pupils equal and reactive to light and accommodation Neck supple no JVD no lymphadenopathy. Wound VAC in place over the right clavicle Lungs clear to auscultation bilaterally Heart regular rate and rhythm S1-S2 Abdomen soft nontender nondistended No distal edema Neurologic appears to be intact Results Last 24 Hours of Lab Results: Laboratory Tests 11/11 635 Hematology CBC w Diff NO MAN DIFF REQ WBC (4.8 - 10.8 /CUMM) 1.7 L RBC (4.20 - 5.40 /CUMM) 2.98 L Hgb (12.0 - 16.0 G/DL) 8.1 L Hct (37 - 47 %) 25.0 L MCV (81.0 - 99.0 FL) 83.9 MCH (27.0 - 31.0 PG) 27.4 MCHC (33.0 - 37.0 G/DL) 32.6 L RDW (11.5 - 14.5 %) 17.6 H Plt Count (130 - 400 /CUMM) 65 L MPV (7.4 - 10.4 FL) 8.4 Gran % (42.2 - 75.2 %) 70.5 Lymphocytes % (20.5 - 51.1 %) 18.6 L Monocytes % (1.7 - 9.3 %) 7.3 Eosinophils % (0 - 5 %) 2.8 Basophils % (0.0 - 2.0 %) 0.8 Absolute Granulocytes (1.4 - 6.5 /CUMM) 1.2 L Absolute Lymphocytes (1.2 - 3.4 /CUMM) 0.3 L Absolute Monocytes (0.10 - 0.60 /CUMM) 0.1 Absolute Eosinophils (0.0 - 0.7 /CUMM) 0 Absolute Basophils (0.0 - 0.2 /CUMM) 0 Last 24 Hours of Kavin Results: Microbiology Date/Time Procedure - Status Source Growth 11/08 1503 Culture & Sensitivity - RES TRUNK/O.R. 11/08 1503 Gram Stain - RES TRUNK/O.R. 11/08 1503 Fungal Culture - RES TRUNK/O.R. 11/08 1503 AFB Culture with PCR Identification - RES TRUNK/O.R. 11/08 1503 AFB Smear Concentration - RES TRUNK/O.R. 11/08 1455 Fungal Culture - RES TRUNK/O.R. 11/08 1455 Culture & Sensitivity - RES TRUNK/O.R. 11/08 1455 Gram Stain - RES TRUNK/O.R. 11/08 1455 Culture & Sensitivity - RES TRUNK/O.R. 11/08 1455 Gram Stain - RES TRUNK/O.R. 11/08 1455 Fungal Culture - RES TRUNK/O.R. 11/08 1455 AFB Culture with PCR Identification - RES TRUNK/O.R. 11/08 1455 AFB Smear Concentration - RES TRUNK/O.R. 11/08 1455 AFB Culture with PCR Identification - RES TRUNK/O.R. 11/08 1455 AFB Smear Concentration - RES TRUNK/O.R. Recent Imaging Studies: No recent imaging Assessment/Plan ID Impression: This patient is a 57-year-old white female with right sternal osteomyelitis. Continues on Vancomycin for coag negative Staph isolated from the aspiration of the right sternoclavicular joint performed 4 days ago, OR cultures remain negative. The gram stain of one OR specimen does reveal rare gram-positive cocci and will await the final cultures. Suggestion: 1. Follow-up final OR and IR cultures 2. Continue Vancomycin pending above
[2017-11-10 14:01] VITALS: BP 110/68
[2017-11-10 21:11] VITALS: BP 100/60
[2017-11-11 06:25] VITALS: BP 108/66
[2017-11-11 09:36] LABS: ABSOLUTE BASOPHIL COUNT 0 /CUMM (0.0-0.2); ABSOLUTE EOSINOPHIL COUNT 0 /CUMM (0.0-0.7); ABSOLUTE LYMPH COUNT 0.3 /CUMM (1.2-3.4); ABSOLUTE MONOCYTE COUNT 0.1 /CUMM (0.10-0.60); EOSINOPHIL % 3.3 % (0-5); GRANULOCYTE % 68.8 % (42.2-75.2); HEMATOCRIT 25.5 % (37-47); MEAN CORPUSCULAR HGB 27.5 PG (27.0-31.0); MEAN CORPUSCULAR HGB CONC 32.9 G/DL (33.0-37.0); MEAN CORPUSCULAR VOLUME 83.8 FL (81.0-99.0); MEAN PLATELET VOLUME 8.6 FL (7.4-10.4); PLATELET COUNT 64 /CUMM (130-400); RBC DISTRIBUTION WIDTH 17.1 % (11.5-14.5); RED BLOOD CELL CT 3.04 /CUMM (4.20-5.40); WHITE BLOOD CELL COUNT 1.5 /CUMM (4.8-10.8)
--- NOTE | 2017-11-11 10:16 | PN- Housestaff ---
See Addendum Subjective Follow-up For: Osteomyelitis of Right Sternoclavicular joint s/p I&D and Wound Vac placement Subjective: Patient is c/o pain to palpation 10/10 over incision site. Denies temperature, fever, chills, night sweats. Review of Systems Constitutional: Reports: see HPI. Objective Last 24 Hrs of Vital Signs/I&O Vital Signs Date Time Temp Pulse Resp B/P B/P Pulse O2 O2 Flow FiO2 Mean Ox Delivery Rate 11/11 624 98.3 69 20 108/66 97 11/10 2111 96.6 71 18 100/60 99 Room Air 11/10 1401 98.2 76 18 110/68 76 Room Air Intake & Output 11/11 1600 11/11 0800 11/11 0000 Intake Total 750 650 Output Total 10 Balance 740 650 Intake, IV 270 300 Intake, Oral 480 350 Number 0 Bowel Movements Output, 10 Drainage Physical Exam General Appearance: Alert, Oriented X3, Mild Distress Skin: Wound Vac in place over right Sternoclavicular Joint, +ve for tenderness to palpation. HEENT: Atraumatic, Mucous Membr. moist/pink Cardiovascular: Regular Rate, Normal S1, Normal S2 Lungs: Clear to Auscultation, Normal Air Movement Abdomen: Tender to palpation Extremities: Normal Pulses, No Tenderness/Swelling, Restricted ROM in Right Shoulder Vascular: Normal Pulses Other Physical Findings: Wound Vac present over right Sternoclavicular joint, Tender to palpation, no erythema, warmth or discharge present. Current Medications: Current Medications Sig/Juli Start time Last Medication Dose Route Stop Time Status Admin Acetaminophen 650 MG Q8P PRN 11/05 2314 AC PO Ibuprofen 600 MG Q8P PRN 11/05 2315 AC 11/06 PO 1757 Melatonin 5 MG AT BEDTIME 11/09 2100 AC 11/10 PO 2103 Morphine Sulfate 2 MG Q3 PRN 11/09 0909 AC 11/10 IV 2103 Omeprazole 40 MG DAILY AC 11/06 0700 AC 11/11 PO 0545 Oxycodone HCl 5 MG Q4-6 PRN PRN 11/09 0915 AC 11/09 PO 1638 Oxycodone HCl 10 MG Q4-6 PRN PRN 11/09 0915 AC 11/11 PO 0545 Vancomycin HCl 1,000 MG 0500,1700 06/28 1700 11/11 Sodium Chloride 250 ML IV 0545 Last 24 Hrs of Lab/Kavin Results Last 24 Hrs of Labs/Mics: Laboratory Tests 11/11/17 0730: Sodium Pending, Potassium Pending, Chloride Pending, Carbon Dioxide Pending, Anion Gap Pending, BUN Pending, Creatinine Pending, BUN/Creatinine Ratio Pending , CBC w Diff Pending, WBC Pending, RBC Pending, Hgb Pending, Hct Pending, MCV Pending, MCH Pending, MCHC Pending, RDW Pending, Plt Count Pending, MPV Pending Assessment/Plan Assessment: 57-year-old woman with a history of Crohn's disease, in remission, hepatitis C with cirrhosis and pancytopenia, treated in the past with antiviral therapy, rheumatoid arthritis, with a history of a right rotator cuff tear 3 years prior to admission presented to the ED with a several day history of swelling and discomfort over the right sternoclavicular joint and continued pain in her right shoulder. Pt. is s/p I&D day 3, with wound Vac placement. Assessment: 1. Osteomyelitis of Right Sternoclavicular Joint Pt. underwent I&D on 11/08/17. with Wound Vac placement POD# 3. 2/2 Venous culture negative after 5 days, RT. STERNOCLAVICULAR JOINT CULTURE 1/2 POSITIVE FOR COAG. Negative Staph. Negative for AFB, Fungal cultures Pending, 2. Pancytopenia Absolute Granulocyte count on 11/11/17 = 1.0. Patient H/H has remained stable during this hospitalizaiton ranging 8.1-9.7/24.8-29.6, WBC has been trending downward today is at 1.5. Patient has no c/o, no evidence of bleeding, no signs of infections on physical examination, vitals have remained stable. Will initate neutropenic fever precautions if Absolute Granulocyte count < 500. Plan: *Follow up OR/IR cultures *Continue Vancomycin, awaiting culture results and ID Input *Will determine need for PICC line after culture results *Increase Oxycodone to 15mg for 10/10 pain, Morphine 2 mg for breakthrough pain. *Possible D/C Sunday depending ABx review and culture results. Problem List: 1. Osteomyelitis Pain Ratin Pain Location: Right Sternoclavicular joint Pain Goal: Pain 7 or less Pain Plan: Increase Oxycodone to 15mg Q4-6hrs, PRN. Tomorrow's Labs & Rationales: Follow H/h, WBC and absolute granulocyte count. F/u on OR cultures
--- NOTE | 2017-11-11 11:42 | PN- Infect Dx ---
Subjective Subjective: This patient is a 57-year-old woman with erosive appearance of the head of the right clavicle and the adjacent manubrium. On November 08 she underwent incision and drainage of the right sternoclavicular joint. Today she feels that her pain is still under control. She is afebrile and has a persistently low white blood cell count. Only one culture is positive for staph species. Review of Systems Comments: No new findings Objective Last 24 Hrs of Vital Signs/I&O Vital Signs Date Time Temp Pulse Resp B/P B/P Pulse O2 O2 Flow FiO2 Mean Ox Delivery Rate 11/11 624 98.3 69 20 108/66 97 11/10 2111 96.6 71 18 100/60 99 Room Air 11/10 1401 98.2 76 18 110/68 76 Room Air Intake & Output 11/11 1600 11/11 0800 11/11 0000 Intake Total 750 650 Output Total 10 Balance 740 650 Intake, IV 270 300 Intake, Oral 480 350 Number 0 Bowel Movements Output, 10 Drainage Physical Exam Other Physical Findings: Awake alert oriented 3 Neck supple no JVD no lymphadenopathy Wound VAC in place decreased drainage Lungs clear to auscultation bilaterally Heart regular rate and rhythm S1-S2 Abdomen soft nontender nondistended No edema or rash Moving all extremities Results Last 24 Hours of Lab Results: Laboratory Tests 11/11 07 Chemistry Sodium (137 - 145 mmol/L) 142 Potassium (3.5 - 5.1 mmol/L) 3.8 Chloride (98 - 107 mmol/L) 107 Carbon Dioxide (22 - 30 mmol/L) 27 Anion Gap (5 - 16) 8 BUN (7 - 17 mg/dL) 10 Creatinine (0.5 - 1.0 mg/dL) 0.6 Estimated GFR (>60 ml/min) > 60 BUN/Creatinine Ratio (7 - 25 %) 16.7 Hematology CBC w Diff NO MAN DIFF REQ WBC (4.8 - 10.8 /CUMM) 1.5 L RBC (4.20 - 5.40 /CUMM) 3.04 L Hgb (12.0 - 16.0 G/DL) 8.4 L Hct (37 - 47 %) 25.5 L MCV (81.0 - 99.0 FL) 83.8 MCH (27.0 - 31.0 PG) 27.5 MCHC (33.0 - 37.0 G/DL) 32.9 L RDW (11.5 - 14.5 %) 17.1 H Plt Count (130 - 400 /CUMM) 64 L MPV (7.4 - 10.4 FL) 8.6 Gran % (42.2 - 75.2 %) 68.8 Lymphocytes % (20.5 - 51.1 %) 20.6 Monocytes % (1.7 - 9.3 %) 6.3 Eosinophils % (0 - 5 %) 3.3 Basophils % (0.0 - 2.0 %) 1.0 Absolute Granulocytes (1.4 - 6.5 /CUMM) 1.0 L Absolute Lymphocytes (1.2 - 3.4 /CUMM) 0.3 L Absolute Monocytes (0.10 - 0.60 /CUMM) 0.1 Absolute Eosinophils (0.0 - 0.7 /CUMM) 0 Absolute Basophils (0.0 - 0.2 /CUMM) 0 Last 24 Hours of Kavin Results: Microbiology Date/Time Procedure - Status Source Growth 11/08 1503 Culture & Sensitivity - COMP TRUNK/O.R. 11/08 1503 Gram Stain - COMP TRUNK/O.R. 11/08 1503 Fungal Culture - RES TRUNK/O.R. 11/08 1503 AFB Culture with PCR Identification - RES TRUNK/O.R. 11/08 1503 AFB Smear Concentration - RES TRUNK/O.R. 11/08 1455 Fungal Culture - RES TRUNK/O.R. 11/08 1455 Culture & Sensitivity - COMP TRUNK/O.R. 11/08 1455 Gram Stain - COMP TRUNK/O.R. 11/08 1455 Culture & Sensitivity - COMP TRUNK/O.R. 11/08 1455 Gram Stain - COMP TRUNK/O.R. 11/08 1455 Fungal Culture - RES TRUNK/O.R. 11/08 1455 AFB Culture with PCR Identification - RES TRUNK/O.R. 11/08 1455 AFB Smear Concentration - RES TRUNK/O.R. 11/08 1455 AFB Culture with PCR Identification - RES TRUNK/O.R. 11/08 1455 AFB Smear Concentration - RES TRUNK/O.R. Recent Imaging Studies: No new studies Assessment/Plan ID Impression: This patient is a 57-year-old white female with right sternal osteomyelitis. Continues on Vancomycin for coag negative Staph isolated from the aspiration of the right sternoclavicular joint performed 5 days ago, OR cultures remain negative. The gram stain of one OR specimen does reveal rare S[employer] E[employer]ECT[employer] MANAGER reistant to only Ampicilin. Suggestion: 1. Discontinue vancomycin and start either oxacillin or cefazolin 2. Continued wound debridement
[2017-11-11 14:58] VITALS: BP 118/70
[2017-11-11 22:50] VITALS: BP 100/72
[2017-11-12 06:00] VITALS: BP 100/60
[2017-11-12 07:26] LABS: ABSOLUTE BASOPHIL COUNT 0 /CUMM (0.0-0.2); ABSOLUTE EOSINOPHIL COUNT 0 /CUMM (0.0-0.7); ABSOLUTE GRANULOCYTE CT 1.1 /CUMM (1.4-6.5); ABSOLUTE LYMPH COUNT 0.3 /CUMM (1.2-3.4); ABSOLUTE MONOCYTE COUNT 0.1 /CUMM (0.10-0.60); BASOPHIL % 0.8 % (0.0-2.0); EOSINOPHIL % 2.8 % (0-5); GRANULOCYTE % 68.8 % (42.2-75.2); HEMATOCRIT 25.3 % (37-47); MEAN CORPUSCULAR HGB 27.8 PG (27.0-31.0); MEAN CORPUSCULAR HGB CONC 32.8 G/DL (33.0-37.0); MEAN CORPUSCULAR VOLUME 84.7 FL (81.0-99.0); MEAN PLATELET VOLUME 8.1 FL (7.4-10.4); RBC DISTRIBUTION WIDTH 17.5 % (11.5-14.5); RED BLOOD CELL CT 2.99 /CUMM (4.20-5.40); WHITE BLOOD CELL COUNT 1.6 /CUMM (4.8-10.8)
--- NOTE | 2017-11-12 07:50 | PN- Housestaff ---
See Addendum Subjective Follow-up For: Osteomyelitis of R. Sternoclavicular Joint s/p I&D and wound vac placement Complaints: pain scale (0-10) Subjective: No acute events overnight. Afebrile. Patient is anxious regarding PICC placement , is requesting something to calm her down. C/o itching in area of wound vac tape, states is tolerable and not requesting any medication. Review of Systems Constitutional: Reports: see HPI. Objective Last 24 Hrs of Vital Signs/I&O Vital Signs Date Time Temp Pulse Resp B/P B/P Pulse O2 O2 Flow FiO2 Mean Ox Delivery Rate 11/12 06 97.9 68 18 100/60 98 Room Air 11/11 2250 98.0 73 16 100/72 98 Room Air 11/11 1458 98.1 67 18 118/70 98 Intake & Output 11/12 1600 11/12 0800 11/12 0000 Intake Total 200 Output Total Balance 200 Intake, IV 200 Physical Exam General Appearance: Alert, Oriented X3, Cooperative Skin: No Rashes HEENT: Atraumatic, EOMI Cardiovascular: Regular Rate, Normal S1, Normal S2, Wound Vac is in place, no erythema or warmth present. Sero-Sanginous discharge from wound vac. Site is tender to touch Lungs: Clear to Auscultation, Normal Air Movement Abdomen: Normal Bowel Sounds, Soft Neurological: Normal Speech Extremities: Normal Pulses, No Tenderness/Swelling Vascular: Normal Pulses, Pulses Symmetrical Current Medications: Current Medications Sig/Juli Start time Last Medication Dose Route Stop Time Status Admin Acetaminophen 650 MG Q8P PRN 11/05 2315 AC PO Ibuprofen 600 MG Q8P PRN 11/05 2315 DC 11/06 PO 1757 Lorazepam 0.5 MG ONE ONE 11/12 1015 DC PO 11/12 1016 Melatonin 5 MG AT BEDTIME 11/09 2100 AC 11/11 PO 2254 Morphine Sulfate 2 MG Q3 PRN 11/09 0909 AC 11/12 IV 1044 Omeprazole 40 MG DAILY AC 11/06 0700 AC 11/12 PO 0621 Oxacillin Sodium 2,000 MG Q6H 11/11 1400 AC 11/12 Sodium Chloride 100 ML IV 0823 Oxacillin Sodium 2,000 MG Q6 11/11 1213 DC Dextrose/Water 100 ML IV Oxycodone HCl 15 MG Q4-6 PRN PRN 11/11 1030 AC 11/12 PO 0832 Oxycodone HCl 5 MG Q4-6 PRN PRN 11/09 0915 AC 11/09 PO 1638 Patient Medication 1 ED ONE ONE 11/12 1015 DC Teaching ED 11/12 1016 Vancomycin HCl 1,000 MG 0500,1700 11/08 1700 DC 11/11 Sodium Chloride 250 ML IV 0545 Last 24 Hrs of Lab/Kavin Results Last 24 Hrs of Labs/Mics: Laboratory Tests 11/12/17 0618: CBC w Diff NO MAN DIFF REQ, RBC 2.99 L, MCV 84.7, MCH 27.8, MCHC 32.8 L, RDW 17.5 H, MPV 8.1, Gran % 68.8, Lymphocytes % 20.0 L, Monocytes % 7.6, Eosinophils % 2.8, Basophils % 0.8, Absolute Granulocytes 1.1 L, Absolute Lymphocytes 0.3 L, Absolute Monocytes 0.1, Absolute Eosinophils 0, Absolute Basophils 0 Assessment/Plan Assessment: 1. Osteomyelitis of Right Sternoclavicular Joint Pt. underwent I&D on 11/08/17. with Wound Vac placement POD# 4. Final OR cultures are negative, fungal cultures pending. 2. Pancytopenia Absolute Granulocyte count on 11/11/17 = 1.0. Patient H/H has remained stable during this hospitalizaiton ranging 8.1-9.7/24.8-29.6, WBC has been trending downward today is at 1.5. Patient has no c/o, no evidence of bleeding, no signs of infections on physical examination, vitals have remained stable. Possible causes: Liver Cirrhosis vs Crohns vs Autoimmue conditions. [facility] Plan: * Continue Oxacillin * Order ESR and LFTs * PICC placement today * Continue Oxycodone 15mg for pain, Morphine 2 mg for breakthrough pain. * Discharge home pending PICC placement, and portable wound vac. Follow up with weekly CBC and CMP to monitor WBC and LFTs Problem List: 1. Osteomyelitis Pain Ratin Pain Location: Right Sternoclavicular joint, below wound vac Pain Goal: Pain 4 or less Pain Plan: Oxycodone Tomorrow's Labs & Rationales: CBC, BEP DVT/Prophylaxis: mechanical Discharge Plan Anticipated Discharge (Day): tomorrow
[2017-11-12 08:11] LABS: PLATELET COUNT 62 /CUMM (130-400)
--- NOTE | 2017-11-12 12:44 | PN- Infect Dx ---
Subjective Subjective: Afebrile. She feels improved with decreased discomfort in the right sternoclavicular area. Objective Last 24 Hrs of Vital Signs/I&O Vital Signs Date Time Temp Pulse Resp B/P B/P Pulse O2 O2 Flow FiO2 Mean Ox Delivery Rate 11/12 0600 97.9 68 18 100/60 98 Room Air 11/11 2250 98.0 73 16 100/72 98 Room Air 11/11 1458 98.1 67 18 118/70 98 Intake & Output 11/12 1600 11/12 0800 11/12 0000 Intake Total 200 Output Total Balance 200 Intake, IV 200 Physical Exam Other Physical Findings: She appears comfortable in no acute distress Neck wound VAC over the right sternoclavicular area, minimally tender to palpation Results Last 24 Hours of Lab Results: Laboratory Tests 11/12 11/12 1114 0618 Hematology CBC w Diff NO MAN DIFF REQ WBC (4.8 - 10.8 /CUMM) 1.6 L RBC (4.20 - 5.40 /CUMM) 2.99 L Hgb (12.0 - 16.0 G/DL) 8.3 L Hct (37 - 47 %) 25.3 L MCV (81.0 - 99.0 FL) 84.7 MCH (27.0 - 31.0 PG) 27.8 MCHC (33.0 - 37.0 G/DL) 32.8 L RDW (11.5 - 14.5 %) 17.5 H Plt Count (130 - 400 /CUMM) 62 L MPV (7.4 - 10.4 FL) 8.1 Gran % (42.2 - 75.2 %) 68.8 Lymphocytes % (20.5 - 51.1 %) 20.0 L Monocytes % (1.7 - 9.3 %) 7.6 Eosinophils % (0 - 5 %) 2.8 Basophils % (0.0 - 2.0 %) 0.8 Absolute Granulocytes (1.4 - 6.5 /CUMM) 1.1 L Absolute Lymphocytes (1.2 - 3.4 /CUMM) 0.3 L Absolute Monocytes (0.10 - 0.60 /CUMM) 0.1 Absolute Eosinophils (0.0 - 0.7 /CUMM) 0 Absolute Basophils (0.0 - 0.2 /CUMM) 0 ESR Westergren Pending Last 24 Hours of Kavin Results: OR routine cultures November 08 all negative, with the AFB smears negative and AFB and fungal cultures pending Right sternoclavicular joint aspiration November 06 (by IR) positive for coag negative Staph sensitive to Oxacillin Assessment/Plan ID Impression: Stable, with temperatures remaining normal, now on Oxacillin for coag negative ( Staph epidermidis) staph isolated from the aspiration of the right sternoclavicular joint performed 6 days ago, with the OR cultures from the I&D of the right sternoclavicular joint 4 days ago all negative. The gram stain of one OR specimen did reveal rare gram-positive cocci, but this is of unclear significance. Though the coag negative Staph may represent a contaminant, it is sensitive to Oxacillin, which is somewhat unusual for a contaminant; therefore, given the concern on CT and MRI of infection, feel that she should be continued on antibiotics for 4-6 weeks (from her recent debridement) for a presumed septic arthritis/osteomyelitis. Suggestion: 1. Follow-up pathology report from the OR specimen 2. Repeat ESR for a new (postop) baseline 3. Follow-up final AFB and fungal cultures 4. Proceed with placement of a PICC 5. Increase Oxacillin to 2 g IV every 4 hours 6. Follow CBC, ESR and CMP weekly while on Oxacillin
--- NOTE | 2017-11-12 14:44 | RADIOLOGY REPORT ---
EXAMINATION: XR PORTABLE CHEST CLINICAL INFORMATION: Peripherally inserted catheter placement. COMPARISON: 09/26/2017 TECHNIQUE: Portable frontal view of the chest was obtained. FINDINGS: The tip of the left arm peripherally inserted catheter is located in the distal superior vena cava. Lungs are symmetrically expanded and clear. No pulmonary edema, consolidation or pleural effusion. Cardiac silhouette is normal in size. The hilar contours are normal. The visualized bones are intact. Note that the right sternoclavicular joint is not optimally evaluated on this portable chest radiograph. IMPRESSION: 1. No acute pulmonary disease. 2. The tip of the left arm peripherally inserted catheter is well-positioned within the distal superior vena cava.
[2017-11-12 22:16] VITALS: BP 104/60
--- NOTE | 2017-11-13 06:44 | PN- Housestaff ---
See Addendum Subjective Follow-up For: Osteomyelitis of R. Sternoclavicular Joint s/o I&D + wound vac placement Complaints: pain scale (0-10) Subjective: No acute events over night. Denies temperature, night sweats or chills. Pt. states "pain is not excruciating, just tender now", feels the pain is worst upon awakening but is improving over all. Review of Systems Constitutional: Reports: see HPI. Objective Last 24 Hrs of Vital Signs/I&O Vital Signs Date Time Temp Pulse Resp B/P B/P Pulse O2 O2 Flow FiO2 Mean Ox Delivery Rate 11/13 0646 98.9 79 18 138/70 96 Room Air 11/12 2216 99.0 78 18 104/60 97 Intake & Output 11/13 0800 11/13 0000 11/12 1600 Intake Total 200 1110 Output Total 15 Balance 200 1095 Intake, IV 200 150 Intake, Oral 960 Output, 15 Drainage Patient 192 lb Weight Physical Exam General Appearance: Alert, Oriented X3, Cooperative Skin: No Rashes HEENT: Atraumatic, EOMI Cardiovascular: Regular Rate, Normal S1, Normal S2, Wound Vac is in place, tender to touch on periphery of vac, no erythema or warmth present. Sero- sangious discharge not appreciated in line. Lungs: Clear to Auscultation, Normal Air Movement Abdomen: Normal Bowel Sounds, Soft Extremities: Normal Pulses, No Tenderness/Swelling, PICC in place on left arm Vascular: Normal Pulses, Pulses Symmetrical Current Medications: Current Medications Sig/Juli Start time Last Medication Dose Route Stop Time Status Admin Acetaminophen 650 MG Q8P PRN 11/05 2315 AC PO Ibuprofen 600 MG Q8P PRN 11/05 2315 DC 11/06 PO 1757 Lorazepam 0.5 MG ONE ONE 11/12 1015 DC 11/12 PO 11/12 1016 1215 Melatonin 5 MG AT BEDTIME 11/09 2100 AC 11/12 PO 2158 Morphine Sulfate 2 MG Q3 PRN 11/09 0909 AC 11/13 IV 0641 Omeprazole 40 MG DAILY AC 11/06 0700 AC 11/13 PO 0625 Oxacillin Sodium 2,000 MG Q4 11/12 1400 AC 11/13 Sodium Chloride 100 ML IV 0625 Oxacillin Sodium 2,000 MG Q6H 11/11 1400 DC 11/12 Sodium Chloride 100 ML IV 0823 Oxycodone HCl 15 MG Q4-6 PRN PRN 11/11 1030 AC 11/13 PO 0237 Oxycodone HCl 5 MG Q4-6 PRN PRN 11/09 0915 AC 11/09 PO 1638 Patient Medication 1 ED ONE ONE 11/12 1015 DC [facility] ED 11/12 1016 Last 24 Hrs of Lab/Kavin Results Last 24 Hrs of Labs/Mics: Laboratory Tests 11/12/17 1114: ESR Westergren 57 H Assessment/Plan Assessment: 1. Osteomyelitis of Right Sternoclavicular Joint Pt. underwent I&D on 11/08/17. with Wound Vac placement POD# 5. Final OR cultures are negative, fungal and AFB cultures pending. 2. Pancytopenia Absolute Granulocyte count on 11/12/17 = 1.1. Patient H/H continue to remain stable during this hospitalizaiton ranging 8.1-9.7/24.8-29.6. WBC has remained stable over past 3 days. Patient has no c/o, no evidence of bleeding, no signs of infections on physical examination, vitals have remained stable. Possible causes: Liver Cirrhosis vs Crohns vs Autoimmue conditions. [facility]. Plan: * Will switch to Ceftriaxone 2 mg daily, until 12/20/16 to complete treatment as outpatient. * Continue Oxycodone 15mg for pain, Morphine 2 mg for breakthrough pain. * Discharge home pending portable wound vac. Follow up with CBC, ESR and CMP to monitor WBC and LFTs Problem List: 1. Osteomyelitis Pain Ratin Pain Location: Right Sternoclavicular joint Pain Goal: Pain 4 or less Pain Plan: Percocet Tomorrow's Labs & Rationales: CBC and BEP DVT/Prophylaxis: mechanical Discharge Plan Discharge Disposition: home Stable for Discharge? No Anticipated Discharge (Day): tomorrow
[2017-11-13 06:46] VITALS: BP 138/70
[2017-11-13] MEDS ORDERED: VITAMIN B-121000 MC4 PO (10:44)
[2017-11-13] MEDS ORDERED: VITAMIN B-121000 MC3 PO (10:44)
[2017-11-13] MEDS ORDERED: CEFTRIAXONE1 G1 IV ×2 (11:36→12:16)
--- NOTE | 2017-11-13 12:15 | PN- Infect Dx ---
Subjective Subjective: Afebrile. She does note discomfort in the right clavicle after the wound VAC change earlier today Objective Last 24 Hrs of Vital Signs/I&O Vital Signs Date Time Temp Pulse Resp B/P B/P Pulse O2 O2 Flow FiO2 Mean Ox Delivery Rate 11/13 0646 98.9 79 18 138/70 96 Room Air 11/12 2216 99.0 78 18 104/60 97 Intake & Output 11/13 1600 11/13 0800 11/13 0000 Intake Total 200 Output Total Balance 200 Intake, IV 200 Patient 192 lb Weight Physical Exam Other Physical Findings: She appears comfortable in no acute distress Neck increased swelling in the right sternoclavicular area, with mild erythema, tender to palpation; wound VAC in place Extremities PICC in the left upper extremity with no inflammation at the site Results Last 24 Hours of Lab Results: Pathology of the OR specimen reveals acute inflammatory tissue and fragments of bone with features consistent with acute and chronic osteomyelitis Last 24 Hours of Kavin Results: No recent cultures Assessment/Plan ID Impression: Stable, with temperatures remaining normal, on Oxacillin for a septic arthritis/ osteomyelitis of the right sternoclavicular joint, presumably secondary to Staph epidermidis, which was isolated from the right sternoclavicular joint aspiration by IR, performed 1 week ago, now 5 days status post I&D of the right sternoclavicular joint, with the OR cultures all negative, raising concern that the coag negative Staph might just represent contamination. The gram stain of one OR specimen did reveal rare gram-positive cocci, but this is of unclear significance. Her pathology was positive for osteomyelitis; therefore she will need to be continued on antibiotics for 4-6 weeks (from her recent surgery). Suggestion: 1. Follow-up final AFB and fungal cultures from her OR specimens 2. Continue Oxacillin to complete a 6 week course of treatment from her surgery (until December 20) 3. CBC, ESR and CMP weekly while on Oxacillin
[2017-11-13 13:54] VITALS: BP 110/62
[2017-11-13 22:03] VITALS: BP 120/70
[2017-11-14 06:36] VITALS: BP 116/68
--- NOTE | 2017-11-14 11:36 | PN- Housestaff ---
Lisa Zamudio 11/14/17 1136: Subjective Follow-up For: R. Sternoclavicular Osteomyelitis Complaints: pain scale (0-10) Objective Last 24 Hrs of Vital Signs/I&O Vital Signs Date Time Temp Pulse Resp B/P B/P Pulse O2 O2 Flow FiO2 Mean Ox Delivery Rate 11/14 1432 98.3 81 20 120/98 95 / 0800 97 Room Air Room Air 11/14 0636 98.8 76 18 116/68 97 Room Air 11/13 2203 98.7 82 18 120/70 97 Room Air Intake & Output 11/14 1600 11/14 0800 11/14 0000 Intake Total 540 120 120 Output Total 25 Balance 540 95 120 Intake, IV 40 Intake, Oral 500 120 120 Output, 25 Drainage Patient 196 lb Weight Weight Bed scale Measurement Method Physical Exam General Appearance: Alert, Oriented X3, Cooperative Skin: Wound vac on R sternoclavicular joint, tender to palpation Skin Temp/Moisture Exam: Warm/Dry Sepsis Skin Exam (color): Normal for Ethnicity HEENT: Atraumatic, PERRLA, EOMI Neck: Supple, No JVD Cardiovascular: Regular Rate, Normal S1, Normal S2, No Murmurs Lungs: Clear to Auscultation, Normal Air Movement Abdomen: Normal Bowel Sounds, Soft, No Tenderness Neurological: Normal Gait, Normal Speech, Strength at 5/5 X4 Ext Extremities: No Cyanosis, No Edema, Normal Pulses Assessment/Plan Problem List: 1. Osteomyelitis Pain Ratin Pain Goal: Pain 7 or less DVT/Prophylaxis: mechanical Discharge Plan Anticipated Discharge (Day): tomorrow Heron Dumont 11/14/17 1216: Subjective Complaints: no complaints Subjective: Patient was seen and examined at the bedside. No acute events overnight. Patient voices no complaints. Review of Systems Constitutional: Reports: no symptoms. Objective Last 24 Hrs of Vital Signs/I&O Vital Signs Date Time Temp Pulse Resp B/P B/P Pulse O2 O2 Flow FiO2 Mean Ox Delivery Rate 11/14 0800 97 Room Air Room Air 11/14 0636 98.8 76 18 116/68 97 Room Air 11/13 2203 98.7 82 18 120/70 97 Room Air 11/13 1354 98.1 86 20 110/62 97 Room Air Intake & Output 11/14 1600 07/04 0800 07/ 0000 Intake Total 300 120 120 Output Total 25 Balance 300 95 120 Intake, Oral 300 120 120 Output, 25 Drainage Patient 196 lb Weight Weight Bed scale Measurement Method Physical Exam General Appearance: Alert, Oriented X3, Cooperative, No Acute Distress Skin: Wound vac on R sternoclavicular joint, tender to palpation Skin Temp/Moisture Exam: Warm/Dry Sepsis Skin Exam (color): Normal for Ethnicity HEENT: Atraumatic, PERRLA, EOMI Neck: Supple, No JVD Cardiovascular: Regular Rate, Normal S1, Normal S2, No Murmurs Lungs: Clear to Auscultation, Normal Air Movement Abdomen: Normal Bowel Sounds, Soft, No Tenderness, No Hepatospenomegaly Neurological: Normal Speech, Strength at 5/5 X4 Ext, Normal Tone, Sensation Intact Extremities: No Cyanosis, No Edema, Normal Pulses Assessment/Plan Assessment: 1. Osteomyelitis of Right Sternoclavicular Joint Pt. underwent I&D on 11/08/17. with Wound Vac placement POD# 5. Final OR cultures are negative, fungal and AFB cultures pending. 2. Pancytopenia Absolute Granulocyte count on 11/12/17 = 1.1. Patient H/H continue to remain stable during this hospitalizaiton ranging 8.1-9.7/24.8-29.6. WBC has remained stable over past 3 days. Patient has no c/o, no evidence of bleeding, no signs of infections on physical examination, vitals have remained stable. Possible causes: Liver Cirrhosis vs Crohns vs Autoimmue conditions. Pt. [facility]. Plan: * Will switch to Ceftriaxone 2 mg daily, until 12/20/16 to complete treatment as outpatient. * Continue Oxycodone 15mg for pain, Morphine 2 mg for breakthrough pain. * Discharge home pending portable wound vac. Follow up with CBC, ESR and CMP to monitor WBC and LFTs Problem List: 1. Osteomyelitis Pain Ratin Pain Location: Right sternoclavicular joint Pain Goal: Pain 4 or less Pain Plan: Percocet Tomorrow's Labs & Rationales: None Discharge Plan Anticipated Discharge (Day): tomorrow Francisca Fajardo MD 11/14/17 1302: Attending MD Review Statement Attending Statement Attending MD Statement: examined this patient, discuss w/resident/PA/[employer], agreed w/resident/PA/[employer], reviewed EMR data (avail), discussed with nursing, reviewed images, amended to note Attending Assessment/Plan: Patient seen and examined, feels ok. Still has pain but accaeptable. vss; on exam; wound vac on chest wall. no labs. A/P: 57 y/o F with pmh sig for hepatitis C treated with Harvoni, cirrhosis, Crohn's disease status post large and small bowel resections, GERD, rheumatoid arthritis, anxiety, depression, carpal tunnel syndrome status post bilateral surgery admitted with right sided chest swelling/erythema and tenderness and found to have right sternoclavicular joint septic arthritis/osteomyelitis. S/P Incision and drainage right sternoclavicular joint and Debridement sternoclavicular joint, placement of wound VAC. Has PICC line. Abx switched to CTX per ID. Plan is to go home when wound vac arrives. Addy go to infusion center for flaquito abx infusion. Continue current mx.
[2017-11-14 14:32] VITALS: BP 120/98
[2017-11-14 21:42] VITALS: BP 118/86
[2017-11-15 07:00] VITALS: BP 114/76
--- NOTE | 2017-11-15 07:34 | PN- Housestaff ---
Lisa Zamudio 11/15/17 0734: Subjective Follow-up For: R. Sternoclavicular Ostemyelitis Complaints: pain scale (0-10) Subjective: Patient was seen and examined at bed side. Patient is c/o itching below her wound vac tape, has no other c/o. Denies fever, SOB, N/V, constipation or diarrhea. Review of Systems Constitutional: Denies: chills, diaphoresis, fever, weakness. Cardiovascular: Denies: chest pain, palpitations, syncope. Respiratory: Denies: cough, short of breath. Gastrointestinal: Denies: abdominal pain, constipation, diarrhea, vomiting. Objective Last 24 Hrs of Vital Signs/I&O Vital Signs Date Time Temp Pulse Resp B/P B/P Pulse O2 O2 Flow FiO2 Mean Ox Delivery Rate 11/15 699 98.6 94 20 114/76 97 Nasal Cannula 11/14 2142 97.4 80 20 118/86 97 Nasal Cannula 11/14 1432 98.3 81 20 120/98 95 Intake & Output 11/15 1600 11/15 0800 11/15 0000 Intake Total 240 600 Output Total Balance 240 600 Intake, Oral 240 600 Physical Exam General Appearance: Alert, Oriented X3, Cooperative Skin: No Rashes, Wound vac in place in R. Sternoclavicular area. Tender to palpation, no erythema, warmth or discharge appreciated. Skin Temp/Moisture Exam: Warm/Dry HEENT: Atraumatic, PERRLA, EOMI Neck: Supple, No LAD Cardiovascular: Regular Rate, Normal S1, Normal S2 Lungs: Clear to Auscultation, Normal Air Movement Abdomen: Normal Bowel Sounds, Soft, No Tenderness Neurological: Normal Speech Assessment/Plan Assessment: Assessment: 1. Osteomyelitis of Right Sternoclavicular Joint Pt. underwent I&D on 11/08/17. with Wound Vac placement POD# 7. Final OR cultures are negative, fungal and AFB cultures pending. 2. Pancytopenia Absolute Granulocyte count on 11/12/17 = 1.1. Patient H/H continue to remain stable during this hospitalizaiton ranging 8.1-9.7/24.8-29.6. WBC has remained stable over past 3 days. Patient has no c/o, no evidence of bleeding, no signs of infections on physical examination, vitals have remained stable. Possible causes: Liver Cirrhosis vs Crohns vs Autoimmue conditions. Pt. does see [facility]. Plan: * Will switch to Ceftriaxone 2 mg daily, until 12/20/16 to complete treatment as outpatient. * Continue Oxycodone 15mg for pain Q4. Should be discharging patient tomorrow, waiting on wound vac. Case managment is working to sort out issues. Problem List: 1. Osteomyelitis Pain Ratin Pain Location: R. sternoclavicular joint Pain Goal: Pain 7 or less Pain Plan: Roxicodone Tomorrow's Labs & Rationales: N/A Sabas Muhammad MD 11/15/17 1548: Attending MD Review Statement Attending Statement Attending MD Statement: examined this patient, discuss w/resident/PA/[employer], agreed w/resident/PA/[employer], reviewed EMR data (avail), discussed with nursing, discussed with case mgmt, amended to note Attending Assessment/Plan: The patient was seen and discussed with house staff, nursing, and case management. Awaiting delivery of her wound vac for home. Continue on IV Ceftriaxone until 12/20. Patient requests note to avoid court date for traffic violation (until after done with Abx).
--- NOTE | 2017-11-15 10:58 | PN- Infect Dx ---
Subjective Subjective: Afebrile. She still notes discomfort in the right clavicle. Objective Last 24 Hrs of Vital Signs/I&O Vital Signs Date Time Temp Pulse Resp B/P B/P Pulse O2 O2 Flow FiO2 Mean Ox Delivery Rate 11/15 07 98.6 94 20 114/76 97 Nasal Cannula 11/14 2142 97.4 80 20 118/86 97 Nasal Cannula 11/14 1432 98.3 81 20 120/98 95 Intake & Output 11/15 1600 11/15 0800 11/15 0000 Intake Total 240 600 Output Total Balance 240 600 Intake, Oral 240 600 Physical Exam Other Physical Findings: She appears comfortable in no acute distress Chest mild tenderness and edema above the right clavicle, with the wound VAC in place Extremities PICC in the left upper extremity with no inflammation at the site Results Last 24 Hours of Lab Results: No recent labs Last 24 Hours of Kavin Results: No recent cultures Assessment/Plan ID Impression: Stable, with temperatures remaining normal, now on Ceftriaxone, changed from Oxacillin for insurance purposes, and she will be coming back to the hospital once a day for treatment of her septic arthritis/osteomyelitis of the right sternoclavicular joint, presumably secondary to Staph epidermidis, isolated from the right sternoclavicular joint aspiration performed by IR 9 days ago, now 1 week status post I&D of the right sternoclavicular joint, with the OR cultures all negative. She continues to have residual inflammation above the right clavicle and have spoken with Plastic surgery, who will reevaluate her later today. She remains pancytopenic secondary to cirrhosis. Suggestion: 1. Await plastic surgery follow-up 2. Continue Ceftriaxone to complete a 6 week course of antibiotics (until December 20) 3. Follow-up final AFB and fungal cultures 4. Weekly ESR
[2017-11-15 22:23] VITALS: BP 116/62
--- NOTE | 2017-11-16 06:27 | PN- Housestaff ---
See Addendum Subjective Follow-up For: R. Sternoclavicular osteomyelitis Complaints: pain scale (0-10) Subjective: Pt. seen and examined at bedside, patient had just finished eating breakfast. She has no c/o. Patient demostrates understanding of continued hospital that she cannot go because we have not recieved her wound vac yet, stating "I dont want to spend my whole summer here". Pain is improving, states "it is more tender then painful now", states is a 11/20 today. Review of Systems Constitutional: Denies: chills, fever, weakness. EENTM: Denies: visual changes. Cardiovascular: Denies: chest pain, palpitations. Respiratory: Denies: cough, short of breath. Gastrointestinal: Denies: abdominal pain, constipation, diarrhea. Objective Last 24 Hrs of Vital Signs/I&O Vital Signs Date Time Temp Pulse Resp B/P B/P Pulse O2 O2 Flow FiO2 Mean Ox Delivery Rate 11/16 0707 98.7 74 18 104/60 97 Room Air 11/15 2223 98.4 84 18 116/62 98 Nasal Cannula Intake & Output 11/16 1600 11/16 0800 11/16 0000 Intake Total 0 400 Output Total Balance 0 400 Intake, Oral 0 400 Number 0 Bowel Movements Patient 197 lb Weight Weight Bed scale Measurement Method Physical Exam General Appearance: Alert, Oriented X3, Cooperative Skin: No Rashes, Wound vac is in place over R. sternoclavicular joint, tender to palpation, no erythema or discharge present. HEENT: Atraumatic, PERRLA, EOMI Neck: Supple, No LAD Cardiovascular: Regular Rate, Normal S1, Normal S2, No Murmurs Lungs: Clear to Auscultation, Normal Air Movement Abdomen: Normal Bowel Sounds, Soft, No Tenderness Extremities: No Cyanosis, No Edema, Normal Pulses Assessment/Plan Assessment: 1. Osteomyelitis of Right Sternoclavicular Joint Pt. underwent I&D on 11/08/17. with Wound Vac placement POD# 8. Final OR cultures are negative, fungal and AFB cultures pending. Plan: - Continue Ceftriaxone 2mg IV until 12/20/17 - Follow up with weekly ESR, CBC and BEP - Roxicodone 10mg for pain 2. Pancytopenia Absolute Granulocyte count on 11/12/17 = 1.1. Patient H/H continue to remain stable during this hospitalizaiton ranging 8.1-9.7/24.8-29.6. WBC has remained stable over past 3 days. Patient has no c/o, no evidence of bleeding, no signs of infections on physical examination, vitals have remained stable. Possible causes: Liver Cirrhosis vs Crohns vs Autoimmue conditions. Pt. does see air chipper at [facility]. Plan: - Monitor CBC, and watch for physical symptoms. Should be discharging patient today, wound vac has been approved still waiting for its arrival. discussed concern of IVDA with patient while on PICC line. Patient continues to deny history of IVDA. Discussed with Dr. Muhammad, per our conversations with the patient we think it is safe to discharge patient with PICC line. Problem List: 1. Osteomyelitis Pain Ratin Pain Location: R. Sternoclavicular joint Pain Goal: Pain 4 or less Pain Plan: Roxicodone Tomorrow's Labs & Rationales: None Discharge Plan Discharge Disposition: home Stable for Discharge? Yes Anticipated Discharge (Day): pending wound vac arrival If Discharged Today/In 24 Hrs: W-10/discharge paper done
[2017-11-16 07:07] VITALS: BP 104/60
--- NOTE | 2017-11-16 11:46 | Event Note ---
Event Note Event Note: Was requested by nursing to address some issues regarding concern about PICC line in patient with history of drug abuse. Ms. Sevilla has a distant h/o drug abuse and never had used any IV drugs. She was on oral opioid at the time of admission (prescribed med), and thus her urine drug screen was positive for opioids. We do not have significant concern regarding her using the IV line for use of illicit drugs.
[2017-11-16 14:21] VITALS: BP 112/70
[2017-11-16] MEDS ORDERED: OXYCODONE HCL10 M2 PO ×2 (15:18→18:59)
[2017-11-16] MEDS ORDERED: CEFTRIAXONE1 G1 IV (18:59)
== END 2017-11-16 19:20 | DRG 511 ==
LOC: DELPENDDIS → ERH 14:58 → ERHI 20:58 → 2NB 20:58 → 1NO 20:58 → ENRESERV 21:02 → ENTRNSPT 22:03 → 2NB 22:03 → EDTRNSPTSTS 22:12 → EDTRNSPT 22:12 → 2NB 22:14 → CMPTRNSPT 22:21 → 2NB 11-06 09:00 → ENTRNSPT 11-08 16:49 → EDTRNSPTSTS 11-08 16:59 → EDTRNSPT 11-08 16:59 → CMPTRNSPT 11-08 17:37 → 2NB 11-11 14:07 → 1NO 11-12 14:38 → ENPENDDIS 11-13 12:14 → 1NO 11-16 19:20
PROVIDERS: Internal Medicine; Physician Assistant Medical
PROC: 0RBE0ZZ Excision of Right Sternoclavicular Joint, Open Approach (ICD-10-PCS; principal; 2017-11-08)
PROC: 2W18X6Z Compression of Right Upper Extremity using Pressure Dressing (ICD-10-PCS; principal; 2017-11-08)
PROC: 0R9E3ZX Drainage of Right Sternoclavicular Joint, Percutaneous Approach, Diagnostic (ICD-10-PCS; 2017-11-08)
PROC: 02HV33Z Insertion of Infusion Device into Superior Vena Cava, Percutaneous Approach (ICD-10-PCS; 2017-11-12)
DX: M00.9 Pyogenic arthritis, unspecified (principal); K50.90 Crohn's disease, unspecified, without complications; M86.111 Other acute osteomyelitis, right shoulder; D61.818 Other pancytopenia; K74.60 Unspecified cirrhosis of liver; B95.7 Other staphylococcus as the cause of diseases classified elsewhere; B18.2 Chronic viral hepatitis C; K21.9 Gastro-esophageal reflux disease without esophagitis; F41.9 Anxiety disorder, unspecified; F32.9 Major depressive disorder, single episode, unspecified; Z91.81 History of falling; Z79.891 Long term (current) use of opiate analgesic; M06.9 Rheumatoid arthritis, unspecified; Z98.51 Tubal ligation status; Z90.49 Acquired absence of other specified parts of digestive tract
CPT/HCPCS: 1NP; 2NBP; 2NBSP; 75645; 87070; 87075; 36415; 36592; 71045; 80307; 82436; 87040; 87147; 87389; 88305; 93005; 93010; 93306; 96374; A9579; C1769; J0131; J0696; J2001; J2270; J3370; J3490; J7040; J7042